=== PATIENT | female | born 2000 | race Caucasian/White ===

== ENCOUNTER 2023-12-11 17:48 | Emergency (ER) | payer OTHER, SELFPAY ==
[2023-12-11] VITALS (24 sets, daily range): BP systolic 109–128; BP diastolic 62–106; PULSE 74–146; RESP 15–26; TEMP 36.1–36.5; O2SAT 96–100; BMI 27.4
--- NOTE | 2023-12-11 18:09 | NURSING ---
NO OLD EKGS
--- NOTE | 2023-12-11 18:11 | EKG12_ITS ---
Test Reason : CHEST PAIN Blood Pressure : / mmHG Vent. Rate : 106 BPM Atrial Rate : 106 BPM P-R Int : 150 ms QRS Dur : 072 ms QT Int : 314 ms P-R-T Axes : 066 -21 052 degrees QTc Int : 417 ms Sinus tachycardia Possible Left atrial enlargement Borderline ECG Confirmed by Chilango Lyn ([id number]), photo editor CATRINA DEL ROSARIO ([id number]) on 12/12/2023 1:00:22 PM Referred By: Confirmed By:Chilango Lyn
[2023-12-11] MEDS: 0.9% Normal Saline (1000mL) 1,000 ML 999 ML IV (18:15)
--- NOTE | 2023-12-11 18:18 | NURSING ---
NO OLD EKGS
--- NOTE | 2023-12-11 18:20 | RAD_ITS ---
INDICATION: chest pain EXAMINATION/TECHNIQUE: X-RAY - XR Chest 1 View COMPARISON: None. FINDINGS: LINES/DEVICES: None. LUNGS: No consolidation, edema or effusion. No pneumothorax. MEDIASTINUM AND CARDIOVASCULAR STRUCTURES: Cardiac silhouette not enlarged. BONES AND SOFT TISSUES: Unremarkable. RAD/Chest 1 View (Portable) IMPRESSION: No radiographic evidence of acute cardiopulmonary disease. Electronically Signed: Amol Barboza MD at 18:48 EDT ,
[2023-12-11 18:23] LABS: Absolute Lymphocyte Count 2.73 X10^3/uL (0.83-4.51); Absolute Neutrophil Count 4.4 X10^3/uL (2.0-7.7); Basophil# 0.04 X10^3/uL; Basophil% 0.5 % (0-1); Eosinophil# 0.47 X10^3/uL; Eosinophils% 5.7 % (0-5); Hematocrit 43.9 % (37-47); Hemoglobin 14.5 g/dL (12.0-15.0); Lymphocyte # 2.73 X10^3/ul (0.83-4.51); Lymphocyte % 32.9 % (19-41); Mean Corpuscular Hgb 27.2 pg (27.0-32.0); Mean Corpuscular Volume 82.4 fL (81-99); Mean Platelet Vol. 9.4 fl (6.2-12.0); Monocyte# 0.67 X10^3/uL; Monocyte% 8.1 % (0-10); NRBC Flagged by Analyzer 0 % (0-5); Neutrophil # 4.35 X10^3/uL (2.7-7.7); Neutrophil % 52.3 % (47-70); Platelet Count 308 K/mm3 (150-450); RBC Distribution Width CV 12.2 % (11.6-14.6); Red Blood Count 5.33 M/mm3 (4.2-5.4); White Blood Count 8.3 K/mm3 (4.4-11.0)
[2023-12-11 18:37] LABS: International Normalized Ratio 1.1; Prothrombin Time (Protime)PT. 14.1 SECONDS (11.7-14.9)
[2023-12-11 18:42] LABS: Anion Gap 7 (5-15); BUN 10 mg/dL (7-18); BUN/Creat Ratio 13.3 RATIO (10-20); Calcium,Total 9.3 mg/dL (8.5-10.1); Chloride 107 mmol/L (98-107); Creatinine, Serum 0.75 mg/dL (0.55-1.02); EST Glomerular Filtration Rate 102 mL/min (>60); Est Glom Filt Rate - Afr Amer 124 mL/min (>60); Estimated Creatinine Clearance 124.42 ml/min; Glucose 104 mg/dL (74-106); Potassium 3.7 mmol/L (3.5-5.1); Sodium Level 139 mmol/L (136-145); Troponin-I HS < 3 pg/mL (3.0-54.0)
[2023-12-11 18:50] LABS: D-Dimer Quantitative (DVT/PE) 0.47 FEU/ug/m (0.27-0.49)
--- NOTE | 2023-12-11 19:03 | CT_ITS ---
STUDY: CTA CHEST REASON FOR EXAM: Female, 23 years old. chest pain RADIATION DOSAGE (If Supplied By Facility): CTDIvol = ( 10.25 ) mGy, DLP = ( 368.02 ) mGycm TECHNIQUE: The examination was performed with the intravenous administration of IV 100mL Isovue-370. Post-processing of the angiographic images was performed, with multiplanar reformation and 3D reconstruction. Individualized dose optimization techniques were used for this CT. COMPARISON: December 11, 2023 chest radiograph. FINDINGS: Unremarkable thyroid. Normal enhancement of the bilateral pulmonary arteries. There is no demonstrated pulmonary embolism. No main pulmonary arterial enlargement. No aortic dissection or aneurysmal dilatation. Normal heart and pericardium. No densely calcified coronary atherosclerosis. No mediastinal or hilar adenopathy. Unremarkable esophagus Mild bilateral peribronchial thickening. No endobronchial lesion. No airspace consolidation, effusion, pneumothorax.. Normal osseous structures. Normal visualized upper abdomen. CT/CTA Chest W/WO Contrast IMPRESSION: No pulmonary embolism or evidence of acute airspace disease. Mild bilateral peribronchial thickening as can be seen with bronchitis/bronchiolitis Electronically Signed: Amol Barboza MD at 20:04 EDT ,
--- NOTE | 2023-12-11 19:04 | ED.VIS.CHEST ---
HPI History of Present Illness Chief Complaint: Palpitations Narrative Narrative: 43-year-old female presenting with chest pain, lightheadedness, shortness of breath. This started abruptly when she got out of her truck today. Patient is an EMT. She states they put her on the monitor and her heart rate was about 150 and she states that her blood pressure dropped when she stood got better when she sat. She states he had an instance of this in the past where they thought she might have a PE but she did not. She does not take any medications except for Depo-Provera. Patient currently feels better sitting in the bed. We stood her up and her heart rate went up to 147 and she started to feel lightheaded and short of breath so we sat her back down. [facility] Medical History PCOS (polycystic ovarian syndrome) Home Medications ?Medication ?Instructions ?Recorded ?Last Taken ?Type medroxyprogesterone 150 mg/mL 300 mg IM .3 months 12/11/23 Unknown History intramuscular suspension (Depo-Provera) Allergy/AdvReac Type Severity Reaction Status Date / Time No Known Allergies Allergy Verified 12/11/23 18:19 Surgical History H/O wisdom tooth extraction Social History household members: significant other and children Smoking Status: Current every day smoker tobacco type: e-cigarettes ROS ROS ED Constitutional Constitutional ED: Denies chills, fever(s) or sweats Eyes Eyes: Denies blurry vision or change in vision ENT ENT ED: Denies ear pain or sore throat Cardiovascular Cardiovascular: Reports chest pain, palpitations, racing heartbeat and other Details: Lightheadedness Respiratory/Chest Respiratory/Chest: Reports dyspnea; Denies cough or sputum Gastrointestinal Gastrointestinal: Denies abdominal pain, constipation, diarrhea, nausea or vomiting Genitourinary Genitourinary ED: Denies dysuria, hematuria or urinary frequency Musculoskeletal Musculoskeletal: Denies arthralgias, myalgias or neck pain Integumentary Denies abscess, Abrasions or rash Neurologic Neurologic: Denies headache(s), paresthesias or weakness Psychiatric Psychiatric: Denies anxiety, depression, suicidal ideation or suicidal thoughts Endocrine Endocrinology: Denies polydipsia or polyuria EXAM Physical Exam Const Vital Signs: 12/11/23 17:50 12/11/23 18:03 12/11/23 18:05 Temperature 96.9 F L Temperature Source Temporal Pulse Rate 146 H 110 H 101 H Pulse Rate [Lying] Pulse Rate [Sitting (for 1 minute prior to obtaining)] Pulse Rate [Standing (for 1 minute prior to obtaining)] Respiratory Rate 18 25 H 26 H Blood Pressure 125/84 H 124/71 H Blood Pressure [Lying] Blood Pressure [Sitting (for 1 minute prior to obtaining)] Blood Pressure [Standing (for 1 minute prior to obtaining)] Blood Pressure Mean 97 87 Blood Pressure Mean [Lying] Blood Pressure Mean [Sitting (for 1 minute prior to obtaining)] Blood Pressure Mean [Standing (for 1 minute prior to obtaining)] Pulse Ox 100 98 97 Oxygen Delivery Method Room Air 12/11/23 18:10 12/11/23 18:11 12/11/23 18:15 Temperature Temperature Source Pulse Rate 104 H 102 H Pulse Rate [Lying] Pulse Rate [Sitting (for 1 minute prior to obtaining)] Pulse Rate [Standing (for 1 minute prior to obtaining)] Respiratory Rate 25 H 15 Blood Pressure 121/106 H Blood Pressure [Lying] Blood Pressure [Sitting (for 1 minute prior to obtaining)] Blood Pressure [Standing (for 1 minute prior to obtaining)] Blood Pressure Mean 113 Blood Pressure Mean [Lying] Blood Pressure Mean [Sitting (for 1 minute prior to obtaining)] Blood Pressure Mean [Standing (for 1 minute prior to obtaining)] Pulse Ox 96 99 Oxygen Delivery Method Room Air 12/11/23 18:16 12/11/23 18:20 12/11/23 18:25 Temperature Temperature Source Pulse Rate 91 94 102 H Pulse Rate [Lying] Pulse Rate [Sitting (for 1 minute prior to obtaining)] Pulse Rate [Standing (for 1 minute prior to obtaining)] Respiratory Rate 22 H 24 H 16 Blood Pressure 112/64 123/73 H 112/68 Blood Pressure [Lying] Blood Pressure [Sitting (for 1 minute prior to obtaining)] Blood Pressure [Standing (for 1 minute prior to obtaining)] Blood Pressure Mean 78 88 82 Blood Pressure Mean [Lying] Blood Pressure Mean [Sitting (for 1 minute prior to obtaining)] Blood Pressure Mean [Standing (for 1 minute prior to obtaining)] Pulse Ox 99 97 Oxygen Delivery Method Room Air 12/11/23 18:30 12/11/23 18:31 12/11/23 18:35 Temperature Temperature Source Pulse Rate 90 91 89 Pulse Rate [Lying] Pulse Rate [Sitting (for 1 minute prior to obtaining)] Pulse Rate [Standing (for 1 minute prior to obtaining)] Respiratory Rate 20 H 18 20 H Blood Pressure 109/67 111/70 Blood Pressure [Lying] Blood Pressure [Sitting (for 1 minute prior to obtaining)] Blood Pressure [Standing (for 1 minute prior to obtaining)] Blood Pressure Mean 79 82 Blood Pressure Mean [Lying] Blood Pressure Mean [Sitting (for 1 minute prior to obtaining)] Blood Pressure Mean [Standing (for 1 minute prior to obtaining)] Pulse Ox 96 97 Oxygen Delivery Method 12/11/23 18:40 12/11/23 18:45 12/11/23 18:46 Temperature Temperature Source Pulse Rate 84 87 90 Pulse Rate [Lying] Pulse Rate [Sitting (for 1 minute prior to obtaining)] Pulse Rate [Standing (for 1 minute prior to obtaining)] Respiratory Rate 15 17 18 Blood Pressure 116/81 H 113/68 Blood Pressure [Lying] Blood Pressure [Sitting (for 1 minute prior to obtaining)] Blood Pressure [Standing (for 1 minute prior to obtaining)] Blood Pressure Mean 90 81 Blood Pressure Mean [Lying] Blood Pressure Mean [Sitting (for 1 minute prior to obtaining)] Blood Pressure Mean [Standing (for 1 minute prior to obtaining)] Pulse Ox Oxygen Delivery Method 12/11/23 18:50 12/11/23 18:55 12/11/23 19:00 Temperature Temperature Source Pulse Rate 87 83 95 Pulse Rate [Lying] Pulse Rate [Sitting (for 1 minute prior to obtaining)] Pulse Rate [Standing (for 1 minute prior to obtaining)] Respiratory Rate 21 H 22 H 18 Blood Pressure 114/67 110/62 128/91 H Blood Pressure [Lying] Blood Pressure [Sitting (for 1 minute prior to obtaining)] Blood Pressure [Standing (for 1 minute prior to obtaining)] Blood Pressure Mean 82 77 100 Blood Pressure Mean [Lying] Blood Pressure Mean [Sitting (for 1 minute prior to obtaining)] Blood Pressure Mean [Standing (for 1 minute prior to obtaining)] Pulse Ox Oxygen Delivery Method Room Air Room Air 12/11/23 19:09 12/11/23 20:00 12/11/23 20:00 Temperature Temperature Source Pulse Rate 79 77 Pulse Rate [Lying] 88 Pulse Rate [Sitting (for 1 minute prior to obtaining)] 105 H Pulse Rate [Standing (for 1 minute prior to obtaining)] 95 Respiratory Rate 21 H 18 Blood Pressure 119/67 109/62 Blood Pressure [Lying] 111/64 Blood Pressure [Sitting (for 1 minute prior to obtaining)] 125/73 H Blood Pressure [Standing (for 1 minute prior to obtaining)] 121/69 H Blood Pressure Mean 84 75 Blood Pressure Mean [Lying] 79 Blood Pressure Mean [Sitting (for 1 minute prior to obtaining)] 90 Blood Pressure Mean [Standing (for 1 minute prior to obtaining)] 86 Pulse Ox 98 98 Oxygen Delivery Method 12/11/23 21:00 12/11/23 22:00 12/11/23 23:00 Temperature Temperature Source Pulse Rate 79 87 74 Pulse Rate [Lying] Pulse Rate [Sitting (for 1 minute prior to obtaining)] Pulse Rate [Standing (for 1 minute prior to obtaining)] Respiratory Rate 22 H 20 H 19 H Blood Pressure 119/67 115/66 Blood Pressure [Lying] Blood Pressure [Sitting (for 1 minute prior to obtaining)] Blood Pressure [Standing (for 1 minute prior to obtaining)] Blood Pressure Mean 81 82 Blood Pressure Mean [Lying] Blood Pressure Mean [Sitting (for 1 minute prior to obtaining)] Blood Pressure Mean [Standing (for 1 minute prior to obtaining)] Pulse Ox 98 98 97 Oxygen Delivery Method 12/11/23 23:23 Temperature 97.7 F L Temperature Source Pulse Rate 80 Pulse Rate [Lying] Pulse Rate [Sitting (for 1 minute prior to obtaining)] Pulse Rate [Standing (for 1 minute prior to obtaining)] Respiratory Rate 22 H Blood Pressure 121/62 H Blood Pressure [Lying] Blood Pressure [Sitting (for 1 minute prior to obtaining)] Blood Pressure [Standing (for 1 minute prior to obtaining)] Blood Pressure Mean 81 Blood Pressure Mean [Lying] Blood Pressure Mean [Sitting (for 1 minute prior to obtaining)] Blood Pressure Mean [Standing (for 1 minute prior to obtaining)] Pulse Ox 97 Oxygen Delivery Method Positive well nourished General Appearance ED: NAD HEENT Reports moist mucous membranes normocephalic and atraumatic Eyes PERRL and EOMs intact bilaterally Resp normal respiratory effort and clear to auscultation bilaterally Auscultation: Negative for rales, rhonchi or wheezes Cardio regular rate and regular rhythm GI normal to inspection, nondistended, normoactive bowel sounds Neuro oriented x3 and CN's II-XII intact bilaterally Sensorium / Orientation: awake and alert Motor Exam: strength 5/5 throughout Psych mental status grossly normal Skin no rashes or lesions noted Heart Score History: Slightly/Non-Suspicious ECG: Normal Age: </= 45 years Risk Factors: No Risk Factors Troponin: </= Normal Limit Score: 0 MDM MDM MDM Narrative Medical decision making narrative: Patient presenting with chest pain, lightheadedness, shortness of breath differential includes ACS, PE, pericardial effusion, pneumonia, dehydration, anemia, electrolyte abnormalities. Patient states has had this in the past and they did not find a source for it. She is not on any medications. She is worn a monitor before. No history of PE but is on Depo-Provera. Patient does not have constant pain and it only happens when she is standing. This started abruptly today. CBC was obtained to assess white blood cell count, hemoglobin and platelets. BMP to assess renal function, electrolytes, glucose. High-sensitivity troponin and EKG to assess for ischemia/dysrhythmia. Chest x-ray rule pneumonia. EKG on my interpretation shows a sinus tachycardia at 106 bpm without sign of ischemic change. Chest x-ray on my survey shows no acute process. Radiologist services and agrees. CBC and BMP unremarkable. D-dimer negative at 0.47. High-sensitivity opponent less than 3. Again after standing the patient up she becomes very short of breath and tachycardic to about 147 and she is having trouble breathing. CTA of the chest showed peribronchial cuffing/thickening. No PE or dissection. Patient states she has not been ill recently. She does have shortness of breath but its only when she stands and she feels tachycardic. She has been on 2 L of fluids. Orthostatic vital signs were within normal limits however the patient states that after she did orthostatic vital signs she tried to stand up and became very lightheaded. Discussed the case with Dr. Lyn at 9:45 PM and he recommended checking a drug screen and test. Her test was negative however her drug screen came back positive for barbiturates which the patient is unsure of how that got in her system. I did try to get an EKG after she stood up however she was not symptomatic and felt better after the IV fluids and her heart rate was only minimally tachycardic so I repeated an EKG which was sinus tachycardia at 106/min without sign of ischemic change. Delta troponin was also less than 3. I did offer to admit her to the hospital but she really wants to try to get home so since she is not is symptomatic we decided we will put a Holter monitor on her. I let Dr. Lyn know that she will be coming in for follow-up. Impression: 1. Chest pain 2. Near syncope 3. Tachycardia 4. Shortness of breath 5. Abnormal urine drug screen Lab Data Attestation: I reviewed the patient's lab results. Labs: Laboratory Results - last 24 hr 12/11/23 12/11/23 12/11/23 17:59 21:40 21:57 WBC 8.3 RBC 5.33 Hgb 14.5 Hct 43.9 MCV 82.4 MCH 27.2 MCHC 33.0 RDW Std Deviation 37.0 RDW Coeff of Parvin 12.2 Plt Count 308 MPV 9.4 Immature Gran % (Auto) 0.500 Neut % (Auto) 52.3 Lymph % (Auto) 32.9 Potter % (Auto) 8.1 Eos % (Auto) 5.7 H Baso % (Auto) 0.5 Absolute Neuts (auto) 4.4 Absolute Lymphs (auto) 2.73 Nucleated RBC % 0 PT 14.1 INR 1.1 D-Dimer Quant (PE/DVT) 0.47 Sodium 139 Potassium 3.7 Chloride 107 Carbon Dioxide 25.0 Anion Gap 7 BUN 10 Creatinine 0.75 Estim Creat Clear Calc 124.42 Est GFR (MDRD) Af Amer 124 Est GFR (MDRD) Non-Af 102 BUN/Creatinine Ratio 13.3 Glucose 104 Calcium 9.3 Troponin I High Sens < 3 L Serum , Qual NEGATIVE Urine Opiates Screen NEGATIVE Urine Methadone Screen NEGATIVE Ur Barbiturates Screen POSITIVE H Ur Phencyclidine Scrn NEGATIVE Ur Amphetamines Screen NEGATIVE MDMA (Ecstasy) Screen NEGATIVE U Benzodiazepines Scrn NEGATIVE Urine Cocaine Screen NEGATIVE U Cannabinoids Screen NEGATIVE Ur Drug Screen Comment 12/11/23 22:25 WBC RBC Hgb Hct MCV MCH MCHC RDW Std Deviation RDW Coeff of Parvin Plt Count MPV Immature Gran % (Auto) Neut % (Auto) Lymph % (Auto) Potter % (Auto) Eos % (Auto) Baso % (Auto) Absolute Neuts (auto) Absolute Lymphs (auto) Nucleated RBC % PT INR D-Dimer Quant (PE/DVT) Sodium Potassium Chloride Carbon Dioxide Anion Gap BUN Creatinine Estim Creat Clear Calc Est GFR (MDRD) Af Amer Est GFR (MDRD) Non-Af BUN/Creatinine Ratio Glucose Calcium Troponin I High Sens < 3 L Serum , Qual Urine Opiates Screen Urine Methadone Screen Ur Barbiturates Screen Ur Phencyclidine Scrn Ur Amphetamines Screen MDMA (Ecstasy) Screen U Benzodiazepines Scrn Urine Cocaine Screen U Cannabinoids Screen Ur Drug Screen Comment Radiography Diagnostic Testing: Clinical Impression(s) from Imaging Studies Chest X-Ray 12/11/23 18:20 IMPRESSION: No radiographic evidence of acute cardiopulmonary disease. Electronically Signed: Amol Barboza MD at 18:48 EDT Reading Location ID and State: [facility] / [place] Tel , Service support , Chest CTA 12/11/23 19:03 IMPRESSION: No pulmonary embolism or evidence of acute airspace disease. Mild bilateral peribronchial thickening as can be seen with bronchitis/bronchiolitis Electronically Signed: Amol Barboza MD at 20:04 EDT Reading Location ID and State: [facility] / [place] Tel , Service support , Discharge Plan Triage Chief Complaint: Palpitations ED Provider: Ramesh Mullen Dx/Rx/DC Orders Instructions: ED Palpitations Prescriptions: No Action medroxyprogesterone [Depo-Provera] 150 mg/mL suspension 300 mg IM .3 months Stand Alone Forms: ED Work / School Excuse Primary Care Provider: Care Physician,No Primary Referrals: Chilango Lyn MD [Med Staff - Active Staff] - As soon as possible Care Physician,No Primary [Primary Care Provider] - Print Language: Lao Disposition Disposition: Home, Self Care Discharge Date/Time: 12/11/23 23:29
[2023-12-11 22:01] LABS: Internal QC Validated? YES +Cl - CLEAR BKGD; Pregnancy, Serum, hCG Quali. NEGATIVE Negative
[2023-12-11 22:16] LABS: Amphetamine Urine VISTA NEGATIVE (<1000 ng/mL); Barbiturate Urine VISTA POSITIVE (< 200 ng/mL); Benzodiazepine Urine VISTA NEGATIVE (< 200 ng/mL); Cocaine Urine VISTA NEGATIVE (< 300 ng/mL); Ecstacy Urine VISTA NEGATIVE (< 500 ng/mL); Methadone Urine VISTA NEGATIVE (< 300 ng/mL); PCP Urine VISTA NEGATIVE (< 25 ng/mL); THC Urine VISTA NEGATIVE (< 50 ng/mL); Vista UDS pH Range 6
--- NOTE | 2023-12-11 22:50 | EKG12_ITS ---
Test Reason : DYSRYTHMIA Blood Pressure : / mmHG Vent. Rate : 106 BPM Atrial Rate : 106 BPM P-R Int : 146 ms QRS Dur : 068 ms QT Int : 318 ms P-R-T Axes : 058 004 056 degrees QTc Int : 422 ms Sinus tachycardia Low voltage QRS Borderline ECG Confirmed by Chilango Lyn ([id number]), desk editor CATRINA DEL ROSARIO ([id number]) on 12/12/2023 1:05:06 PM Referred By: Ramesh Mullen Confirmed By:Chilango Lyn
[2023-12-11 22:56] LABS: Troponin-I HS < 3 pg/mL (3.0-54.0)
== END 2023-12-11 23:29 | disposition home or self-care (01) ==
PROVIDERS: Emergency Provider Student in an Organized Health Care Education/Training Program; Visit Provider Student in an Organized Health Care Education/Training Program
DX: R00.2 Palpitations (principal); R07.9 Chest pain, unspecified; R42 Dizziness and giddiness; R06.02 Shortness of breath; R55 Syncope and collapse; F17.290 Nicotine dependence, other tobacco product, uncomplicated; R00.0 Tachycardia, unspecified; R82.5 Elevated urine levels of drugs, medicaments and biological substances; E28.2 Polycystic ovarian syndrome; Z79.899 Other long term (current) drug therapy
CPT/HCPCS: 71045; 71275; 80048; 80307; 84484; 84703; 85025; 85379; 85610; 93005; 96360; 99285; J7030; Q9967; A4216

== ENCOUNTER → 2023-12-11 | Outpatient (CLI) | payer OTHER, SELFPAY | END | disposition home or self-care (01) | LOC: CVS 23:27 | PROVIDERS: Referring Provider Student in an Organized Health Care Education/Training Program; Visit Provider Student in an Organized Health Care Education/Training Program | DX: R00.2 Palpitations (principal) | CPT/HCPCS: 93225; 93226 ==

== ENCOUNTER → 2024-04-01 | Outpatient (CLI) | payer OTHER, BC, SELFPAY ==
[2024-04-01 17:30] LABS: Absolute Lymphocyte Count 2.59 X10^3/uL (0.83-4.51); Absolute Neutrophil Count 3.8 X10^3/uL (2.0-7.7); Basophil# 0.04 X10^3/uL; Basophil% 0.5 % (0-1); Eosinophil# 0.58 X10^3/uL; Eosinophils% 7.7 % (0-5); Hematocrit 40.7 % (37-47); Hemoglobin 13.4 g/dL (12.0-15.0); Lymphocyte # 2.59 X10^3/ul (0.83-4.51); Lymphocyte % 34.6 % (19-41); Mean Corp Hgb Conc 32.9 g/dL (32-36); Mean Corpuscular Hgb 27.1 pg (27.0-32.0); Mean Corpuscular Volume 82.2 fL (81-99); Mean Platelet Vol. 10.1 fl (6.2-12.0); Monocyte# 0.45 X10^3/uL; NRBC Flagged by Analyzer 0 % (0-5); Neutrophil % 50.8 % (47-70); Platelet Count 300 K/mm3 (150-450); RBC Distribution Width CV 12.4 % (11.6-14.6); Red Blood Count 4.95 M/mm3 (4.2-5.4); White Blood Count 7.5 K/mm3 (4.4-11.0)
[2024-04-01 18:11] LABS: Vitamin B12 835 pg/mL (211-911); Vitamin D,25 Hydroxy 23.7 ng/mL
[2024-04-01 18:31] LABS: ALB/GLOB Ratio 1.2 RATIO (0.9-2.4); AST(SGOT) 10 U/L (15-37); Alanine Aminotransfer ALT/SGPT 19 U/L (13-56); Alkaline Phosphatase 59 U/L (45-117); Anion Gap 7 (5-15); BUN 9 mg/dL (7-18); BUN/Creat Ratio 11.5 RATIO (10-20); Calcium,Total 9.2 mg/dL (8.5-10.1); Chloride 110 mmol/L (98-107); Creatinine, Serum 0.78 mg/dL (0.55-1.02); EST Glomerular Filtration Rate 98 mL/min (>60); Est Glom Filt Rate - Afr Amer 118 mL/min (>60); Globulin 3.3 g/dL (2.2-4.2); Glucose 134 mg/dL (74-106); Potassium 3.6 mmol/L (3.5-5.1); Protein, Total 7.3 g/dL (6.4-8.2); Sodium Level 140 mmol/L (136-145); T4 Free Direct 1.05 ng/dL (0.76-1.46); Thyroid Stim Hormone (TSH) 0.889 uIU/mL (0.358-3.740)
[2024-04-03 10:09] LABS: Hemoglobin A1c 5.1 % (3.8-5.6)
== END | disposition home or self-care (01) ==
LOC: MFPLAB 15:09
PROVIDERS: PCP Family Medicine; Visit Provider Family Medicine
DX: R53.83 Other fatigue (principal); R73.09 Other abnormal glucose
CPT/HCPCS: 36415; 80053; 82306; 82607; 83036; 84439; 84443; 85025

== ENCOUNTER 2024-05-16 06:04 | Emergency (ER) | payer BC, SELFPAY ==
[2024-05-16 06:06] VITALS: BP 113/66; PULSE 75; RESP 11; TEMP 36.3; O2SAT 98; BMI 30.4
--- NOTE | 2024-05-16 06:18 | EDS_ITS ---
HPI History of Present Illness Chief Complaint: Chest Pain Informant: patient Onset/Context/Timing Onset: Today (Approximately 30 minutes prior to arrival) Activity at onset: sudden Timing: Continuous Quality: Positive for Sharp and Tightness Location: Right Chest Worsened By: Nothing Relieved By: Nothing Associated Symptoms: Positive for Cough; Negative for Nausea, Vomiting, Diaphoresis, Dyspnea, Fever, Lightheadedness, Acid Reflux or Palpitations Narrative Narrative: Patient presents with chest pain that began today approximately 30 minutes prior to arrival. Patient states that she was riding in the car when this began. Patient states it is mainly over the right side of her chest. Patient describes it as sharp and tight. Patient states it radiates up into her neck. Patient states nothing makes it better nothing makes it worse. Patient does admit to a cough. Patient denies any shortness of breath. Patient denies any nausea or vomiting. Patient states she has a history of POTS. CVD Risk Factors: Positive for Smoking; Negative for Hypertension, Diabetes, Hypercholesterolemia or Family History 1' </=55 PE Risk Factors: Negative for Recent Travel/Surgery, Recent Immobilization, Prior DVT or PE, Cancer or OCP + Smoking + >/=35 PFSH PFSH Medical History Pneumonia POTS (postural orthostatic tachycardia syndrome) Asthma PCOS (polycystic ovarian syndrome) Home Medications ?Medication ?Instructions ?Recorded ?Last Taken ?Type medroxyprogesterone 150 mg/mL 300 mg IM .3 months 12/11/23 Unknown History intramuscular suspension (Depo-Provera) metoprolol tartrate 25 mg tablet 25 mg PO BID #180 tabs 03/25/24 Unknown Rx amoxicillin 875 mg-potassium 1 tab PO BID 04/18/24 Unknown History clavulanate 125 mg tablet ipratropium bromide 17 1 puff inhalation Q6H 04/18/24 Unknown History mcg/actuation HFA aerosol inhaler (Atrovent HFA) Allergy/AdvReac Type Severity Reaction Status Date / Time No Known Allergies Allergy Verified 05/16/24 06:05 Family History Sister Thyroid disorder Cancer Mother Cancer Thyroid disorder Father Diabetes Peripheral vascular disease Surgical History H/O wisdom tooth extraction Social History household members: significant other and children Smoking Status: Current every day smoker tobacco type: e-cigarettes alcohol intake: current alcohol intake frequency: holidays/special occasions only substance use type: does not use caffeine: Yes (on occasion per pt) ROS ROS ED Constitutional Constitutional ED: Denies chills or fever(s) Eyes Eyes: Denies blurry vision or change in vision ENT ENT ED: Denies rhinorrhea or sore throat Cardiovascular Cardiovascular: Reports chest pain; Denies palpitations Respiratory/Chest Respiratory/Chest: Reports cough; Denies dyspnea Gastrointestinal Gastrointestinal: Denies nausea or vomiting Genitourinary Genitourinary ED: Denies dysuria or hematuria Musculoskeletal Musculoskeletal: Reports back pain; Denies neck pain Integumentary Denies abscess or rash Neurologic Neurologic: Denies headache(s) or weakness Allergic/Immunologic Allergic/Immunologic ED: Denies mouth swelling or urticaria EXAM Physical Exam Const Vital Signs: 05/16/24 06:06 05/16/24 06:08 05/16/24 06:28 Temperature 97.3 F L Temperature Source Oral Pulse Rate 75 Respiratory Rate 11 L Respiratory Effort Normal Blood Pressure 113/66 Blood Pressure Mean 81 Pulse Ox 98 97 Oxygen Delivery Method Room Air Room Air 05/16/24 07:14 Temperature Temperature Source Pulse Rate 75 Respiratory Rate 16 Respiratory Effort Blood Pressure 113/61 Blood Pressure Mean 78 Pulse Ox 98 Oxygen Delivery Method Room Air Positive well nourished and well developed General Appearance ED: well developed and NAD HEENT Reports moist mucous membranes Neck supple and no JVD Resp normal respiratory effort and clear to auscultation bilaterally Cardio regular rate and regular rhythm GI soft to palpation, non-tender and non-distended Extremity normal to inspection General Extremety ED: Negative for edema or tenderness General Extremity: Negative for edema Neuro oriented x3, CN's II-XII intact bilaterally and no sensory deficits noted Sensorium / Orientation: awake and alert Motor Exam: strength 5/5 throughout Psych mental status grossly normal Heart Score History: Slightly/Non-Suspicious ECG: Normal Age: </= 45 years Risk Factors: 1 or 2 Risk Factors Troponin: </= Normal Limit Score: 1 MDM MDM MDM Narrative Medical decision making narrative: Differential diagnosis includes cardiac dysrhythmia, cardiac ischemia, electrolyte abnormality, pneumonia, gastroesophageal reflux disease, and anxiety. EKG will be obtained to assess for cardiac dysrhythmia and cardiac ischemia. Chest x-ray will be obtained to assess for pneumonia and pneumothorax. CBC will be obtained to assess for leukocytosis and anemia. Basic metabolic profile will be obtained to assess for electrolyte abnormality and renal function. High-sensitivity troponin will be obtained to assess for cardiac ischemia. 2-hour repeat high-sensitivity troponin will be obtained to assess for ongoing cardiac ischemia. Lab Data Attestation: I reviewed the patient's lab results. Lab results narrative: CBC was reviewed and was within normal limits. Basic metabolic profile was reviewed and was within normal limits initial high-sensitivity troponin was reviewed and was less than 3. Labs: Laboratory Results - last 24 hr 05/16/24 06:26 WBC 6.4 RBC 5.16 Hgb 14.2 Hct 42.7 MCV 82.8 MCH 27.5 MCHC 33.3 RDW Std Deviation 36.8 RDW Coeff of Parvin 12.1 Plt Count 279 MPV 9.2 Immature Gran % (Auto) 0.500 Neut % (Auto) 44.5 L Lymph % (Auto) 38.8 [place] % (Auto) 8.0 Eos % (Auto) 7.4 H Baso % (Auto) 0.8 Absolute Neuts (auto) 2.9 Absolute Lymphs (auto) 2.48 Nucleated RBC % 0 Sodium 139 Potassium 3.7 Chloride 109 H Carbon Dioxide 25.0 Anion Gap 5 BUN 13 Creatinine 0.67 Estim Creat Clear Calc 145.09 Est GFR (MDRD) Af Amer 141 Est GFR (MDRD) Non-Af 116 BUN/Creatinine Ratio 19.3 Glucose 104 Calcium 8.8 Troponin I High Sens < 3 L Radiography Chest X-Ray - ED: 2 View, Read by ED Physician, Read by Radiologist and No Acute Disease Diagnostic Testing: Clinical Impression(s) from Imaging Studies Chest X-Ray 05/16/24 06:35 IMPRESSION: No evidence of active intrathoracic disease. Electronically Signed: Inessa Calloway MD at 7:18 EDT , PA and lateral chest x-ray was obtained. There are 2 views. On my independent interpretation, lung portillo are clear. There is normal cardiac silhouette. Bony thorax is normal. There is no acute process noted. Radiologist also interpreted the x-ray and agrees. EKG Initial EKG: Attestation: I personally reviewed and interpreted this EKG as follows: Interpretation: Sinus Rhythm (76) and No Acute Injury Pattern Comments: EKG was obtained. On my independent interpretation, it showed a normal sinus rhythm with a rate of 76. AK interval, QRS interval, and QTc intervals were all normal. [place] was normal. There are no acute ST or T wave changes. Prior EKG tracings: available for review Prior: Unchanged (03/07/2024) Treatment and Re-Evaluation :: Patient was given aspirin here. Patient has a HEART score of 1. Patient was advised that this is low risk for acute cardiac event. Care of the patient will be turned over to the oncoming physician pending repeat troponin. Discharge Plan Triage Chief Complaint: Chest Pain ED Provider: Mark Linton Dx/Rx/DC Orders Clinical Impression: Chest pain of uncertain etiology, POTS (postural orthostatic tachycardia syndrome) Instructions: ED Chest Pain, Uncertain Cause Prescriptions: No Action amoxicillin-pot clavulanate 875-125 mg tablet 1 tab PO BID Atrovent HFA 17 mcg/actuation HFA aerosol inhaler 1 puff inhalation Q6H medroxyprogesterone [Depo-Provera] 150 mg/mL suspension 300 mg IM .3 months metoprolol tartrate 25 mg tablet 25 mg PO BID Qty: 180 3RF Primary Care Provider: Ernesto Randhawa Referrals: Ernesto Randhawa MD [Primary Care Provider] - 5-7 Days Print Language: Barbadian Disposition Disposition: Home, Self Care
--- NOTE | 2024-05-16 06:26 | EKG12_ITS ---
Test Reason : CP Blood Pressure : / mmHG Vent. Rate : 076 BPM Atrial Rate : 076 BPM P-R Int : 170 ms QRS Dur : 068 ms QT Int : 362 ms P-R-T Axes : 060 003 044 degrees QTc Int : 407 ms Normal sinus rhythm Normal ECG Confirmed by MISTI MCFARLAND MD ([id number]), manager editorial ALEM HENNESSY ([id number]) on 05/19/2024 9:21:12 AM Referred By: ES Confirmed By:MISTI MCFARLAND MD
[2024-05-16 06:28] VITALS: O2SAT 97
[2024-05-16] MEDS: Aspirin 81 MG TAB.CHEW 324 MG PO (06:30)
--- NOTE | 2024-05-16 06:35 | RAD_ITS ---
INDICATION: chest pain EXAMINATION/TECHNIQUE: X-RAY - XR Chest 2 Views COMPARISON: Prior study dated: 12/11/2023 FINDINGS: LINES/DEVICES: None. LUNGS: No consolidation. No pneumothorax. MEDIASTINUM: Unremarkable. CARDIAC SILHOUETTE: Not enlarged. BONES AND SOFT TISSUES: No acute abnormalities. RAD/Chest PA and Lateral IMPRESSION: No evidence of active intrathoracic disease. Electronically Signed: Inessa Calloway MD at 7:18 EDT ,
--- OUTSIDE RECORDS SUMMARY | 2024-05-16 06:42 | XMS RPT_ITS | CCD ---
Author Organization [facility] Care Team Providers Care Hat Block Bench Hand Name Role Phone Joby Loya Primary Care Provider ANTONIETTA SIDDIQI Admitting Unavailable ANTONIETTA SIDDIQI Attending Unavailable ANTONIETTA SIDDIQI Referring Unavailable NONE, NONE Primary Care Unavailable Ernst Can [phone] Consulting Unavailable Isreal Dorsey [phone] Consulting Unav ailable ANTONIETTA SIDDIQI Consulting Unavailable NONE, NONE Consulting Unavailable Joby Loya DO Primary Care Provider Vincenzo ENGINEER AND GEOLOGIST, A Isatu Primary Care Provider VINCENZO, Ken ISATU~[id number] Primary Care Roshni Loya ENGINEER AND GEOLOGIST, A Isatu Primary Care Provider Vincenzo ENGINEER AND GEOLOGIST, A Isatu Primary Care Provider JOBY LOYA Primary Care Unavailable ROBBIE DUNAWAY Attending Unavailable JOBY LOYA Unavailable Unavailable Muna Patten Unavailable Unavailable BRIGHT BRIGHT, A A ISATU~[id number] Primary Care Unavailable DANIELA VARNER Attending Unavailable BRIGHT BRIGHT, A A ISATU~[id number] Primary Care Unavailable BRIGHT BRIGHT, A A ISATU~[id number] Primary Care Unavailable BRIGHT BRIGHT, A A ISATU~[id number] Primary Care Unavailable BRIGHT BRIGHT, A A ISATU~[id number] Primary Care Unavailable Ms. Muna Patten Attending Joby Davenport Primary Care Unavailable Joby Loya Primary Care Unavailable Ms. Scarlett Siddiqi Attending Cindyvaambika lable Unavailable Primary Care Provider Unavailabl e No, Physician Primary Care Provider Unavailabl e NO, PHYSICIAN Primary Care Unavailable TRACY ALLEN Attending Unav ailable TRACY ALLEN Admitting Unav ailable BARBER, PHYSICIAN Primary Care Unavailable TRACY ALLEN Attending Unav ailable LEA SURESH Attending Unavailable NO, PHYSICIAN Primary Care Unavailable TEDDY LYN Primary Care Unavailable NAOH BENNETT MD Attending Unavailable Medications Current Medications Medication Drug Class(es) Dates Sig (Normalized) Sig (Original) [id number] 200 actuat albuterol 0.09 mg/actuat metered dose inhaler (10 sources) beta2-Adrenergic Agonist Start: 11-29-2022 End: 12-29-2022 take 2 puff(s) by inhalation every four hours for wheezing albuterol HFA (PROAIR HFA ; PROVENTIL HFA ; VENTOLIN HFA) 90 mcg/actuation inhaler Indications: Cough in adult Inhale 2 puffs every 4 (four) hours if needed for shortness of breath or wheezing. 6.7 g 0 11/29/2022 12/29/2022 Active Start: 12-23-2018 End: 01-22-2019 take 2 puff(s) by inhalation every six hours as needed for wheezing albuterol (PROVENTIL HFA) 90 mcg/actuation inhaler Inhale 2 (two) puffs every 6 (six) hours as needed for wheezing . 1 Inhaler 0 12/23/2018 01/22/2019 Active Start: 12-23-2018 End: 12-28-2023 take 2.5 mg by inhalation every six hours as needed for wheezing albuterol (PROVENTIL) 2.5 mg /3 mL (0.083 %) nebulizer solution Take 3 mL (2.5 mg total) by nebulization every 6 (six) hours as needed for wheezing . 75 mL 0 12/23/2018 12/28/2023 Discontinued Start: 12-23-2018 End: 12-28-2023 take 2 puff(s) by inhalation every six hours as needed for wheezing albuterol (PROVENTIL HFA) 90 mcg/actuation inhaler Inhale 2 (two) puffs every 6 (six) hours as needed for wheezing . 1 Inhaler 0 12/23/2018 12/28/2023 Discontinued End: 12-28-2023 albuterol 90 mcg/actuation i nhaler Inhale 2 (two) puffs . 0 12/28/2023 Discontinued albuterol 90 mcg /actuation inhaler Inhale 2 puffs . 0 Active azithromycin 250 mg oral tablet (1 source) Macrolide Antimicrobial Start: 11-29-2022 azithromycin (Zithromax Z-Juan) 250 mg tablet Indications: Bronchitis Take 2 tablets the first day, then 1 tablet daily for 4 days. 6 tablet 0 11/29/2022 Active benzonatate 200 mg oral capsule (1 source) Non-narcotic Antitussive Start: 12-23-2018 End: 12-30-2018 take 1 capsule by mouth three times daily as needed for cough benzonatate (TESSALON) 200 MG capsule Take 1 (one) capsule (200 mg total) by mouth 3 (three) times a day as needed for cough . 15 capsule 0 12/23/2018 12/30/2018 Active brompheniramine maleate 0.4 mg/ml / dextromethorphan hydrobromide 2 mg/ml / pseudoephedrine hydrochloride 6 mg/ml oral solution (1 source) alpha-Adrenergic Agonist, Uncompetitive K-dnkakj-N-aspartat e Receptor Antagonist, Sigma-1 Agonist Start: 11-29-2022 End: 12-09-2022 take 10 mL by mouth four times daily brompheniramine-p seudoephedrine-DM 2-30-10 mg/5 mL syrup Indications: Cough in adult Take 10 mL by mouth 4 (four) times a day if needed for allergies for up to 10 days. 118 mL 0 11/29/2022 12/09/2022 Active doxycycline hyclate 100 mg oral tablet (1 source) Tetracycline-class Drug Start: 12-23-2018 End: 12-30-2018 take 1 tablet by mouth twice daily doxycycline hyclate (VIBRA-TABS) 100 MG tablet Take 1 (one) tablet (100 mg total) by mouth 2 (two) times a day for 7 days . 14 tablet 0 12/23/2018 12/30/2018 Active Ethinyl Estradiol / Norethindrone (18 sources) Estrogen Start: 09-11-2022 take 1 tablet by mouth once daily norethindrone-eth inyl estradiol (Junel 08/11, ,) 1-20 mg-mcg per tablet 08/11 (21) 1 mg-20 mcg tablet Take 1 tablet every day by oral route. 21 tablet 2 09/11/2022 Active Start: 07-03-2022 take 1 tablet by jessa th once daily norethindrone-ethinyl estradiol (08/11, ,) 1-20 mg-mcg per tablet 08/11 (21) 1 mg-20 mcg tablet Take 1 tablet every day by oral route. 21 tablet 2 07/03/2022 Active Start: 04-24-2022 End: 07-03-2022 take 1 tablet by mouth once daily norethindrone-ethinyl estradiol (,) 1-20 mg-mcg per tablet 08/11 () 1 mg-20 mcg tablet Take 1 tablet every day by oral route. 21 tablet 2 04/24/2022 07/03/2022 Discontinued (Reorder) Start: 04-24-2022 take 1 tablet by jessa th once daily norethindrone-ethinyl estradiol (08/11, ,) 1-20 mg-mcg per tablet 08/11 () 1 mg-20 mcg tablet Take 1 tablet every day by oral route. 21 tablet 2 04/24/2022 Active Start: 02-20-2022 End: 04-24-2022 take 1 tablet by mouth once daily norethindrone-ethinyl estradiol (08/11, ,) 1-20 mg-mcg per tablet 08/11 (21) 1 mg-20 mcg tablet Take 1 tablet every day by oral route. 21 tablet 2 02/20/2022 04/24/2022 Discontinued (Reorder) Start: 02-20-2022 take 1 tablet by jessa th once daily norethindrone-ethinyl estradiol (08/11, ,) 1-20 mg-mcg per tablet 08/11 (21) 1 mg-20 mcg tablet Take 1 tablet every day by oral route. 21 tablet 2 02/20/2022 Active Start: 12-26-2021 End: 02-20-2022 take 1 tablet by mouth once daily norethindrone-ethinyl estradiol (08/11, ,) 1-20 mg-mcg per tablet 08/11 (21) 1 mg-20 mcg tablet Take 1 tablet every day by oral route. 21 tablet 2 12/26/2021 02/20/2022 Discontinued (Reorder) Start: 12-26-2021 take 1 tablet by jessa th once daily norethindrone-ethinyl estradiol (08/11, ,) 1-20 mg-mcg per tablet 08/11 (21) 1 mg-20 mcg tablet Take 1 tablet every day by oral route. 21 tablet 2 12/26/2021 Active Start: 08-18-2021 End: 12-26-2021 take 1 tablet by mouth once daily norethindrone-ethinyl estradiol (08/11, ,) 1-20 mg-mcg per tablet 08/11 (21) 1 mg-20 mcg tablet Take 1 tablet every day by oral route. 21 tablet 2 08/18/2021 12/26/2021 Discontinued (Reorder) Start: 08-18-2021 take 1 tablet by jessa th once daily norethindrone-ethinyl estradiol (08/11, ,) 1-20 mg-mcg per tablet 08/11 (21) 1 mg-20 mcg tablet Take 1 tablet every day by oral route. 21 tablet 2 08/18/2021 Active End: 08-18-2021 take 1 tablet by mouth once daily, then take 0.05 tablet by mouth once norethindrone-ethinyl estradiol (08/11, ,) 1-20 mg-mcg per tablet 08/11 (21) 1 mg-20 mcg tablet Take 1 tablet every day by oral route. 0 08/18/2021 Discontinued (Reorder) levalbuterol 2.5 mg/ml inhalant solution (4 sources) beta2-Adrenergic Agonist Start: 12-23-2018 leval buterol (XOPENEX) nebulizer solution 1.25 mg Start: 12-23-2018 End: 12-28-2023 take 1.25 mg by inhalation every four hours as needed for wheezing levalbuterol (XOPENEX) 1.25 mg/3 mL nebulizer solution Take 3 mL (1.25 mg total) by nebulization every 4 (four) hours as needed for wheezing . 72 mL 0 12/23/2018 12/28/2023 Discontinued 1 ml medroxyPROGESTERone acetate 150 mg/ml injection (2 sources) Progestin Start: 10-22-2023 medroxyPROGESTERone (DEPO-PROVERA) 150 mg/mL injection Inject 1 mL (150 mg total) into the shoulder, thigh, or buttocks every 3 (three) months . 0 10/22/2023 Active metoprolol tartrate 25 mg oral tablet (4 sources) beta-Adrenergic Danielle Start: 12-21-2023 End: 03-27-2024 take 0.5 tablet by mouth twice daily metoprolol tartrate (LOPRESSOR) 25 MG tablet Take 0.5 (one-half) tablet (12.5 mg total) by mouth 2 (two) times a day . 30 tablet 2 12/28/2023 03/27/2024 Active naproxen 500 mg oral tablet (2 sources) Nonsteroidal Anti-inflammator y Drug Start: 11-24-2022 take 1 tablet by mouth twice daily at mealtime naproxen 500 mg oral tablet ; 1 tab(s) orally 2 times a day Quantity: 14 Refills: 0 Ordered: 24-Nov-2022 Scarlett Siddiqi Start: 24-Nov-2022 Generic Substitution Allowed Comments: Check with your doctor before becoming .May cause drowsiness or dizziness.Obtain medical advice before taking any non-prescription drugs as some may affect the action of this medication.Take with food or milk. Start: 04-07-2022 End: 04-14-2022 take 1 tablet by mouth twice daily at mealtime naproxen (NAPROSYN) 500 mg tablet Take 1 tablet (500 mg total) by mouth 2 (two) times a day with meals for 7 days. 14 each 0 04/07/2022 04/14/2022 Active Comment on above: Check with your doct or before becoming .May cause drowsiness or dizziness.Obtain medical advice before taking any non-prescription drugs as some may affect the action of this medication.Take with food or milk. predniSONE 50 mg oral tablet (2 sources) Start: 3 End: 3 take 1 tablet by mouth once daily predniSONE (DELTASONE) 50 mg tablet Indications: Cough in adult Take 1 tablet (50 mg total) by mouth 1 (one) time each day for 5 days. 5 tablet 0 11/29/2022 12/04/2022 Active Start: 12-23-2018 predniSONE (DE LTASONE) 10 mg tablet pack 4 tabs po x 4 days, 3 tabs po x 4 days, 2 tabs po x 4 days, 1 tab po x 4 days . 40 tablet 0 12/23/2018 Active Completed/Discontinued Medications Medication Drug Class(es) Dates Sig (Normalized) Sig (Original) dicyclomine hydrochloride 10 mg oral capsule (1 source) Anticholinergic Start: 11-19-19 End: 11-21-19 take 2 capsules by mouth three times daily dicyclomine 10 mg oral capsule ; 2 cap(s) orally 3 times a day Quantity: 18 Refills: 0 Ordered: 18-Nov-2022 Scarlett Siddiqi Start: 18-Nov-2022 End: 20-Nov-2022 Generic Substitution Allowed Comments: May cause drowsiness. Alcohol may intensify this effect. Use care when operating dangerous machinery. Comment on above: May cause drowsiness . Alcohol may intensify this effect. Use care when operating dangerous machinery. iopamidol (ISOVUE-370) 76 % injection 75 mL (1 source) Start: 12-24-19 End: 12-24-19 iopamidol (ISOVUE-370) 76 % injection 75 mL 1 ml ketorolac tromethamine 30 mg/ml injection (1 source) Nonsteroidal Anti-inflammatory Drug, Cyclooxygenase Inhibitor Start: 12-24-19 End: 12-24-19 19 ketorolac (TORADOL) injection 15 mg methylPREDNISolone 125 mg injection (1 source) Corticosteroid Start: 12-24-19 End: 12-24-19 methylPREDNISolone sod suc(PF) (SOLU-medrol) Injection 125 mg ondansetron 4 mg disintegrating oral tablet (2 sources) Serotonin-3 Receptor Antagonist Start: 11-17-19 23 End: 12-28-19 24 take 1 tablet by mouth every eight hours as needed ondansetron (ZOFRAN-ODT) 4 MG disintegrating tablet Dissolve 1 (one) tablet (4 mg total) on top of tongue every 8 (eight) hours as needed . 20 tablet 0 11/16/2022 12/28/2023 Discontinued 1000 ml sodium chloride 9 mg/ml injection (1 source) Start: 12-24-19 End: 12-24-19 sodium chloride 0.9% (NS) bolus 500 mL Problems Active Problems Problem Classification Problem Date Documented Date Episodic/Chronic Abdominal pain (5 sources) Unspecified abdominal pain; Translations: [Pelvic and perineal pain] Onset: 11-15-2022 Episodic Asthma (1 source) Acute exacerbation of asthma; Translations: [Asthma with acute exacerbation, unspecified asthma severity, unspecified whether persistent] Chronic Cardiac dysrhythmias (4 sources) Postural orthostatic tachycardia syndrome ; Translations: [POTS (postural orthostatic tachycardia syndrome)] Onset: 12-28-2023 12-28-2023 Chronic Cardiac dysrhythmias (4 sources) Palpitations; Translations: [Tachycardia, unspecified] Onset: 12-21-2023 Episodic Chronic obstructive pulmonary disease and bronchiectasis (2 sources) Bronchitis; Translations: [Bronchitis, not specified as acute or chronic] Onset: 11-29-2022 Episodic Contraceptive and procreative management (2 sources) Patient encounter status; Translations: [Encounter for other general counseling and advice on contraception] Episodic Menstrual disorders (1 source) Dysmenorrhea, unspecified; Translations: [Dysmenorrhea, unspecified] Onset: 11-24-2022 Chronic Nausea and vomiting (2 sources) Nausea; Translations: [Nausea] Onset: 11-18-2022 Episodic Nonmalignant breast conditions (2 sources) Lump in right breast; Translations: [Unspecified lump in the right breast, unspecified quadrant] Episodic Other circulatory disease (2 sources) Postural orthostatic tachycardia syndrome ; Translations: [Postural orthostatic tachycardia syndrome (POTS)] Onset: 12-28-2023 Episodic Other female genital disorders (1 source) Pain in female genitalia on intercourse; Translations: [Unspecified dyspareunia] Chronic Other female genital disorders (3 sources) Abnormal uterine and vaginal bleeding, unspecified; Translations: [Abnormal uterine and vaginal bleeding, unspecified] Onset: 11-24-2022 Chronic Other female genital disorders (4 sources) Abnormal uterine bleeding; Translations: [Abnormal uterine and vaginal bleeding, unspecified] Onset: 12-28-2023 12-28-2023 Chronic Other female genital disorders (1 source) Personal history of other diseases of the female genital tract; Translations: [Personal history of oth diseases of the female genital tract] Onset: 11-24-2022 Episodic Other female genital disorders (1 source) Other specified noninflammatory disorders of vagina; Translations: [Other specified noninflammatory disorders of vagina] Onset: 11-18-2022 Episodic Other liver diseases (2 sources) Fatty (change of) liver, not elsewhere classified; Translations: [Fatty (change of) liver, not elsewhere classified] Onset: 11-15-2022 Chronic Other lower respiratory disease (1 source) Cough; Translations: [Cough in adult] Episodic Other lower respiratory disease (1 source) Wheezing; Translations: [Wheezing] Episodic Other lower respiratory disease (1 source) Wheezing; Translations: [Wheezing] Onset: 11-29-2022 Episodic Other non-traumatic joint disorders (1 source) Hip pain; Translations: [Pain in left hip] Episodic Other non-traumatic joint disorders (1 source) Pain in left hip; Translations: [Pain in left hip] Onset: 04-07-2022 Episodic Other screening for suspected conditions (not mental disorders or infectious disease) (2 sources) Other specified abnormal findings of blood chemistry; Translations: [Other specified abnormal findings of blood chemistry] Onset: 11-15-2022 Episodic Ovarian cyst (2 sources) Unspecified ovarian cyst, unspecified side; Translations: [Unspecified ovarian cyst, unspecified side] Onset: 11-15-2022 Episodic Spondylosis; intervertebral disc disorders; other back problems (2 sources) Cervicalgia; Translations: [CERVICALGIA] Onset: 04-18-2019 Episodic Unclassified (2 sources) HEAVY BLEEDING OVARIAN CYST 11-24-2022 Comment on above: HEAVY BLEEDING OVARI AN CYST Unclassified (1 source) Cough, unspecified; Translations: [Cough, unspecified] Onset: 11-29-2022 Past or Other Problems Problem Classification Problem Date Documented Da te Episodic/Chronic Immunizations and screening for infectious disease (2 sources) Tuberculosis screening status; Translations: [Encounter for screening for respiratory tuberculosis] Onset: 12-12-2021 Episodic Results Test Name Value Interpretation Reference Range Facility APTTon 03-07-2024 aPTT Coag (Bld) [Time] 30.9 s Normal 27.0-38.0 So [facility] Comment on above: Result Comment: APTT Interpretation: This test has not been validated to monitor heparin therapy. APTT test is used as an initial test for suspected bleeding disorder. Anti-Xa UFH test is used to monitor heparin therapy. Performed By: #### 1 15152, 711928, 205956, 863853, 3837545, CD:[id number], [id number] #### [facility] [address] [place] [address] Tie Sawyer: Doug Perez MD AUTO DIFFon 03-07-2024 Baso Count 0.05 x1000 Normal 0.00-0.20 [facility] Comment on above: Performed By: #### 1 46200, 171977, 903546, 745570, 2460419, CD:[id number], [id number] #### [facility] [address] [place], [place] [id number] Tie Sawyer: Doug Perez MD Basos % 0.7 % Normal [facility] Comment on above: Performed By: #### 1 74267, 875148, 948207, 765697, 3186315, CD:[id number], 086435 #### [facility] [address] [place] [address] Tie Sawyer: Doug Perez MD Eos Count 0.29 x1000 Normal 0.00-0.50 [facility] Comment on above: Performed By: #### 1 20109, 326724, 728198, 689017, 4832066, CD:[id number], [id number] #### [facility] [address] [place] [address] Tie Sawyer: Doug Perez MD Eosinophils/100 WBC (Bld) 4.1 % Normal [facility] Comment on above: Performed By: #### 1 03300, 830333, 063746, 607856, 7188120, CD:[id number], 305816 #### [facility] [address] [place] [address] Tie Sawyer: Doug Perez MD Lymph Count 2.48 x1000 Normal 1.20-4.80 [facility] Comment on above: Performed By: #### 1 18532, 036989, 914210, 201328, 9438235, CD:[id number], 641869 #### [facility] [address] [place] [address] Tie Sawyer: Doug Perez MD Lymphocytes/100 WBC (Bld) 34.7 % Normal [facility] Comment on above: Performed By: #### 1 07317, 883140, 591883, 494194, 7961675, CD:[id number], 499800 #### [facility] [address] [place] [address] Tie Sawyer: Doug Perez MD [place] Count 0.64 x1000 Normal 0.10-1.00 [facility] Comment on above: Performed By: #### 1 82649, 597675, 871924, 207430, 2730111, CD:[id number], 567429 #### [facility] [address] [place] [address] Tie Sawyer: Doug Perez MD Monocytes/100 WBC (Bld) 9.0 % Normal [facility] Comment on above: Performed By: #### 1 90786, 675415, 256385, 572014, 1535522, CD:[id number], 881760 #### [facility] [address] [place] [address] Tie Sawyer: Doug Perez MD Neutrophil Count (ANC) 3.68 x1000 Normal 1.40-8.80 So [facility] Comment on above: Performed By: #### 1 73602, 500007, 863535, 096233, 2548821, CD:[id number], 232945 #### [facility] [address] [place] [address] Tie Sawyer: Doug Perez MD Neutrophils/100 WBC (Bld) 51.5 % Normal [facility] Comment on above: Performed By: #### 1 91273, 011653, 613955, 861931, 7010211, CD:[id number], 702300 #### [facility] [address] [place] [address] Tie Sawyer: Doug Perez MD COMPMETAon 03-07-2024 Albumin [Mass/Vol] 3.7 g/dL Normal 3.4-5.0 [facility] Comment on above: Performed By: #### 1 55519, 209984, 181773, 620352, 0534174, CD:[id number], 662525 ####[facility] [address] [place] [address] Medical Director: Doug Perez MD Albumin/Globulin [Mass ratio] 1.2 {ratio} Normal [facility] Comment on above: Performed By: #### 1 36033, 151365, 139964, 734349, 8964741, CD:[id number], 683661 ####[facility] [address] [place] [address] Medical Director: Doug Perez MD Alk Phos 57 unit/L Normal 45-117 [facility] Comment on above: Performed By: #### 1 58318, 997969, 181209, 805220, 5766602, CD:[id number], 647437 ####[facility] [address] [place] [address] Medical Director: Doug Perez MD Bilirubin [Mass/Vol] 0.40 mg/dL Normal 0.30-1.20 [facility] Comment on above: Result Comment: Use of this assay is not recommended for patients undergoing treatment with eltrombopag due to the potential for falsely elevated results. Performed By: #### 1 36446, 166077, 615915, 312751, 0108614, CD:[id number], 699462 ####[facility] [address] [place], [place] [id number]) [phone] Director: Doug Perez MD Calcium [Mass/Vol] 9.0 mg/dL Normal 8.7-10.4 [facility] Comment on above: Performed By: #### 1 33463, 883502, 765472, 673147, 9940152, CD:[id number], 411831 ####[facility] [address] [place], [place] [id number]) [phone] Director: Doug Perez MD Chloride [Moles/Vol] 108 mmol/L High 98-107 [facility] Comment on above: Performed By: #### 1 79388, 893072, 912291, 354442, 0749604, CD:[id number], 150090 ####[facility] [address] [place], [place] [id number]) [phone] Director: Doug Perez MD CO2 [Moles/Vol] 26.0 mmol/L Normal 20.0-31.0 [facility] Comment on above: Performed By: #### 1 79661, 273764, 524426, 894136, 0888841, CD:[id number], 753943 ####[facility] [address] [place] [address] Medical Director: Doug Perez MD Creatinine [Mass/Vol] 0.8 mg/dL Normal 0.5-0.8 [facility] Comment on above: Performed By: #### 1 33927, 284961, 899621, 817168, 2268195, CD:[id number], 955333 ####[facility] [address] [place], [place] [id number]) [phone] Director: Doug Perez MD GFR AA >60 Normal [facility] Comment on above: Result Comment: Afri can [facility] GFR Calc Medical judgement is necessary to interpret GFR. The calculated GFR may not accurately reflect renal status in patients >70 years, women, acutely ill hospitalized patients and patients with acute renal failure or known renal disease. The MDRD GFR formula is valid only for adults greater than 18 years of age. Note: Creatinine clearance (not GFR) should be used for drug dosing. Performed By: #### 1 93701, 450067, 513085, 878685, 0228062, CD:[id number], 687680 ####[facility] [address] [place], [place] [id number]) [phone] Director: Doug Perez MD Globulin (S) [Mass/Vol] 3.1 g/dL Normal [facility] Comment on above: Performed By: #### 1 85887, 914445, 045878, 347982, 2338979, CD:[id number], 399791 ####[facility] [address] [place], [place] [id number]) [phone] Director: Doug Perez MD Glomerular Filtration Rate >60 Normal [facility] Comment on above: Result Comment: Non- GFR Calc Medical judgement is necessary to interpret GFR. The calculated GFR may not accurately reflect renal status in patients >70 years, women, acutely ill hospitalized patients and patients with acute renal failure or known renal disease. The MDRD GFR formula is valid only for adults greater than 18 years of age. Note: Creatinine clearance (not GFR) should be used for drug dosing. Performed By: #### 1 14446, 832232, 131248, 762013, 9877360, CD:[id number], 060532 ####[facility] [address] [place] [address] Medical Director: Doug Perez MD Glucose [Mass/Vol] 90 mg/dL Normal 74-106 [facility] Comment on above: Performed By: #### 1 94491, 248447, 344605, 027590, 0328734, CD:[id number], 521976 ####[facility] [address] [place] [address] Medical Director: Doug Perez MD GOT 16 unit/L Normal 15-37 [facility] Comment on above: Performed By: #### 1 00402, 046812, 971626, 988783, 5512912, CD:[id number], 927090 ####[facility] [address] [place], [place] [id number]) [phone] Director: Doug Perez MD GPT 13 unit/L Normal 10-49 [facility] Comment on above: Performed By: #### 1 16818, 919766, 741958, 748314, 1873589, CD:[id number], 848147 ####[facility] [address] [place] [address] Medical Director: Doug Perez MD Osmolality [Osmolality] 280 mosm/kg Normal 275-295 [facility] Comment on above: Performed By: #### 1 17950, 679425, 617470, [id number], [id number], CD:[id number], [id number] ####[facility] [id number] [place] [address] Medical Director: Doug Perez MD Potassium [Moles/Vol] 4.3 mmol/L Normal 3.5-5.1 [facility] Comment on above: Result Comment: Spec imen slightly hemolyzed. Results may be affected. Performed By: #### 1 83110, 171337, 781981, 759490, [id number], CD:[id number], [id number] ####[facility] [id number] [place] [address] Medical Director: Doug Perez MD Protein [Mass/Vol] 6.8 g/dL Normal 5.7-8.2 [facility] Comment on above: Result Comment: Tota l Protein results may be increased in patients receiving dextran as a blood volume hemotherapist Performed By: #### 1 03222, 640576, 139283, 951516, [id number], CD:[id number], [id number] ####[facility] [id number] [place] [address] Medical Director: Doug Perez MD Sodium [Moles/Vol] 141 mmol/L Normal 135-145 [facility] Comment on above: Performed By: #### 1 64572, 819278, 070544, 048559, [id number], CD:[id number], [id number] ####[facility] [id number] [place], [place] [id number]) [phone] Director: Doug Perez MD Urea nitrogen [Mass/Vol] 10 mg/dL Normal 9-23 [facility] Comment on above: Result Comment: - Ve nipuncture should occur prior to N-Acetyl Cysteine (NAC) or Metamizole (Sulpyrine) administration due to the potential for falsely depressed results. - Blood samples from some patients with monoclonal gammopathies may produce falsely elevated results Performed By: #### 1 30985, 511594, 343147, 617379, [id number], CD:[id number], [id number] ####[facility] [id number] [place] [address] Medical Director: Doug Perez MD Urea nitrogen/Creatinine [Mass ratio] 12.5 mg/mg Normal [facility] Comment on above: Performed By: #### 1 96016, 741494, 997247, 417484, 4644339, CD:[id number], [id number] ####[facility] [id number] [place] [address] Medical Director: Doug Perez MD COVID-19 Molecular SWEDon SARS-CoV-2 (COVID-19) RNA ROWENA+probe Ql (Unsp spec) Negative Normal Negative [facility] Comment on above: Result Comment: This assay is designed to detect the RdRp target of SARS-CoV-2 using rapid molecular isothermal amplification technology. A Negative result does not preclude the possibility of COVID 19 infection since the adequacy of sample collection and/or low viral burden may result in the presence of viral nucleic acids below the analytical sensitivity of this test method. Test results should be used along with other clinical and laboratory data in making the diagnosis. This testing was performed in the [facility] laboratory located at [[place] [address]] Performed By: #### C [id number] #### [facility] [address] [place] [address] Tie Sawyer: Doug Perez MD ED Data STILL PUMP OPERATOR - Texton 024 ED Data STILL PUMP OPERATOR - Text ED Data STILL PUMP OPERATOR Entered On: 03/07/2024 16:49 EDT Performed On: 03/07/2024 16:46 EDT by Raven Powell RN ED General Intake Information Randolph Coma : Document David Coma Scale Problem History : Document Problem History Procedure History : Document Procedure History Safety Screening : Document Safety Screening Referral Source : Work Mode of Arrival * : Ambulance / PD ED KINDER1 Falls Risk : Document Falls Assessment Infection Screening : Document Infection Screening Depression Screening : Document Depression Screening Would you accept a blood transfusion if necessary? : Yes Social History : Document Social History Currently or : Not Applicable Approximate LMP : 2 months pt on depo shot Raven Powell RN - 03/07/2024 16:46 EDT Prearrival FCT EKG : 12 Lead Raven Powell RN - 03/07/2024 16:46 EDT David Coma Scale Eye Opening : Spontaneously Best Verbal Response : Oriented Best Motor Response : Obeys simple commands Randolph Coma Score (Ref) : 15 Raven Powell RN - 03/07/2024 16:46 EDT Problem History (As Of: 03/07/2024 16:49:22 EDT) Problems(Active) Pneumonia (SNOMED CT :568435547 ) Name of Problem: Pneumonia ; Recorder: Raven Powell RN; Confirmation: Confirmed ; Classification: Medical ; Code: [id number] ; Contributor System: [employer] ; Last Updated: 03/07/2024 16:47 EDT ; Life Cycle Date: 03/07/2024 ; Life Cycle Status: Active ; Vocabulary: SNOMED CT POTS (postural orthostatic tachycardia syndrome) (SNOMED CT :1279898606 ) Name of Problem: POTS (postural orthostatic tachycardia syndrome) ; Recorder: Raven Powell RN; Confirmation: Confirmed ; Classification: Medical ; Code: [id number] ; Contributor System: [employer] ; Last Updated: 03/07/2024 16:47 EDT ; Life Cycle Date: 03/07/2024 ; Life Cycle Status: Active ; Vocabulary: SNOMED CT Procedure History ED Urinary Catheter Present on Admit to ED? : No Devices Present on Arrival To ED : None Raven Powell RN - 03/07/2024 16:46 EDT - Procedure History (As Of: 03/07/2024 16:49:22 EDT) Anesthesia Minutes: 0 ; Procedure Name: wisdom teeth ; Procedure Minutes: 0 ; Last Reviewed Dt/Tm: 03/07/2024 16:48:04 EDT Safety Screening Abuse/Violence Concerns? : Patient denies Does the patient have a medically restricted extremity? : No Raven Powell RN - 03/07/2024 16:46 EDT KINDER1 Fall Risk Assessment *Presents to ED Because of Falls : No *Age > 70 : No *Altered Mental Status : No *Impaired Mobility : No *Nursing Judgment : No Raven Powell RN - 03/07/2024 16:46 EDT Infection Screening Travel outside of [place] within past 21 days? : No Positive COVID test in the last 10 days? : No Exposure to and/or close contact with a person who has a laboratory-confirmed COVID test within the last 48 hours. : No Raven Powell RN - 03/07/2024 16:46 EDT Depression Screening Patient able to verbalize? : Yes Feeling Down, Depressed, Hopeless : Not at all Little Interest - Pleasure in Activities : Not at all Initial Depression Screen Score : 0 Depression Screening Score 0 : No IP Pt being evaluated or treated for BH conditions : No Raven Powell RN - 03/07/2024 16:46 EDT Social History Are you being seen for an alcohol related problem? : No Do you or one of your family members feel like you have a drinking problem? : No Raven Powell RN - 03/07/2024 16:46 EDT Social History (As Of: 03/07/2024 16:49:22 EDT) Alcohol: Denies Alcohol Use (Last Updated: 03/07/2024 16:48:54 EDT by Raven Powell RN ) Tobacco: Electronic Cigarette (Last Updated: 03/07/2024 16:49:20 EDT by Raevn Powell RN) Substance Abuse: Denies Substance Abuse (Last Updated: 03/07/2024 16:48:57 EDT by Raven Powell RN ) Normal [facility] ED Discharge Educationon ED Discharge Education Syncope (Fainting ): Care Instructions When you faint, or pass out, you lose consciousness for a short time. A brief drop in blood flow to the brain often causes it. When you fall or lie down, more blood flows to your brain and you regain consciousness. Emotional stress, pain, or overheating?especially if you have been standing?can make you faint. In these cases, fainting is usually not serious. In some instances, your blood pressure can drop and make you faint, which can be secondary to dehydration, which is easily corrected, or something more serious, such as heart problems. Other causes can also mean serious problems. Your doctor may want you to have more tests to rule out these causes. The treatment you need depends on the reason why you fainted. The doctor has checked you carefully, but problems can develop later. If you notice any problems or new symptoms, get medical treatment right away. Follow-up care is a cotton part of your treatment and safety. Be sure to make and go to all appointments, and call your doctor if you are having problems. It's also a good idea to know your test results and keep a list of the medicines you take. How can you care for yourself at home? ? Drink plenty of fluids to prevent dehydration. If you have kidney, heart, or liver disease and have to limit fluids, talk with your doctor before you increase your fluid intake. When should you call for help? Call 911 anytime you think you may need emergency care. For example, call if: ? You have symptoms of a heart problem. These may include: ? Chest pain or pressure. ? Severe trouble breathing. ? A fast or irregular heartbeat. ? Lightheadedness or sudden weakness. ? Coughing up pink, foamy mucus. ? Passing out. After you call 911, the dosier operator may tell you to chew 1 adult-strength or 2 to 4 low-dose aspirin. Wait for an ambulance. Do not try to drive yourself. ? You have symptoms of a stroke. These may include: ? Sudden numbness, tingling, weakness, or loss of movement in your face, arm, or leg, especially on only one side of your body. ? Sudden vision changes. ? Sudden trouble speaking. ? Sudden confusion or trouble understanding simple statements. ? Sudden problems with walking or balance. ? A sudden, severe headache that is different from past headaches. ? You passed out (lost consciousness) again. Watch closely for changes in your health, and be sure to contact your doctor if: ? You do not get better as expected. Lightheadedness or Faintness: Care Instructions Lightheadedness is a feeling that you are about to faint or pass out. You do not feel as if you or your surroundings are moving. It is different from vertigo, which is the feeling that you or things around you are spinning or tilting. Lightheadedness usually goes away or gets better when you lie down. If lightheadedness gets worse, it can lead to a fainting spell. It is common to feel lightheaded from time to time. Lightheadedness usually is not caused by a serious problem. It often is caused by a short-lasting drop in blood pressure and blood flow to your head that occurs when you get up too quickly from a seated or lying position. Follow-up care is a cotton part of your treatment and safety. Be sure to make and go to all appointments, and call your doctor if you are having problems. It's also a good idea to know your test results and keep a list of the medicines you take. How can you care for yourself at home? ? Lie down for 1 or 2 minutes when you feel lightheaded. After lying down, sit up slowly and remain sitting for 1 to 2 minutes before slowly standing up. ? Avoid movements, positions, or activities that have made you lightheaded in the past. ? Get plenty of rest, especially if you have a cold or flu, which can cause lightheadedness. ? Make sure you drink plenty of fluids, especially if you have a fever or have been sweating. ? Do not drive or put yourself and others in danger while you feel lightheaded. When should you call for help? Call 911 anytime you think you may need emergency care. For example, call if: ? You have symptoms of a stroke. These may include: ? Sudden numbness, tingling, weakness, or loss of movement in your face, arm, or leg, especially on only one side of your body. ? Sudden vision changes. ? Sudden trouble speaking. ? Sudden confusion or trouble understanding simple statements. ? Sudden problems with walking or balance. ? A sudden, severe headache that is different from past headaches. ? You have symptoms of a heart attack. These may include: ? Chest pain or pressure, or a strange feeling in the chest. ? Sweating. ? Shortness of breath. ? Nausea or vomiting. ? Pain, pressure, or a strange feeling in the back, neck, jaw, or upper belly or in one or both shoulders or arms. ? Lightheadedness or sudden weakness. ? A fast or irregular heartb (more content not included)... Normal [facility] ED Emergency Severity Index Adult-Texton 03-07-2024 ED Emergency Severity Index Adult-Text JENNA - Adult Entered On: 03/07/2024 16:35 EDT Performed On: 03/07/2024 16:35 EDT by Raven Powell RN JENNA JENNA Level 1 - Adult : No JENNA Level 2 - Adult : No Resources JENNA : Many Raven Powell RN - 03/07/2024 16:35 EDT DCP GENERIC CODE Visit Reason : WEAKNESS Tracking Triage Date/Time : 03/07/2024 16:35 EDT Tracking Reg Status : Complete Tracking Acuity : 3H-Urgent Tracking Group : SGEN Raven Calhoun RN - 03/07/2024 16:35 EDT Recommended JENNA Level : 3 Raven Powell RN - 03/07/2024 16:35 EDT Normal [facility] ED Patient Summaryon 024 ED Patient Summary [facility] Emergency Department Discharge Instructions [address] [place] [address] (Patient Copy) Name: LADY SANDRA : 2000 Allergies: No Known Allergies Diagnosis: Near syncope Visit Date: 03/07/2024 15:21:17 Current Date Time: 03/07/2024 20:25:06 Address: [address] [place] [address] Primary Care Provider: Name: TEDDY LYN Phone: [phone] Emergency Department Care Providers: Primary Physician: NOAH BENNETT MD Thank you for choosing [facility] for your emergency care. You are very important to us. Our goal is to demonstrate our high quality medical care, and provide you with a very good patient experience. You may receive a survey about our service. Please take the time to complete the survey and return it so we can continue to enhance our service. Thank you again for allowing the [facility] Emergency Department to care for your medical needs. If you have questions about your care or follow up information please contact us at [phone]. Follow-Up Instructions __ LADY SANDRA has been given these follow-up instructions: With: Address: When: follow up with your polisher and sander. Return to the emergency department for worsening headache, numbness, tingling or weakness. Within 3 to 5 days With: Address: When: TEDDY LYN DR NOT ON STAFF [address] [place] [address], [address] [place] [phone] Business (1) Within 3 to 5 days Patient Education Materials __ LADY SANDRA has been given the following patient education materials: Syncope (Fainting): Care Instructions When you faint, or pass out, you lose consciousness for a short time. A brief drop in blood flow to the brain often causes it. When you fall or lie down, more blood flows to your brain and you regain consciousness. Emotional stress, pain, or overheating?especially if you have been standing?can make you faint. In these cases, fainting is usually not serious. In some instances, your blood pressure can drop and make you faint, which can be secondary to dehydration, which is easily corrected, or something more serious, such as heart problems. Other causes can also mean serious problems. Your doctor may want you to have more tests to rule out these causes. The treatment you need depends on the reason why you fainted. The doctor has checked you carefully, but problems can develop later. If you notice any problems or new symptoms, get medical treatment right away. Follow-up care is a cotton part of your treatment and safety. Be sure to make and go to all appointments, and call your doctor if you are having problems. It's also a good idea to know your test results and keep a list of the medicines you take. How can you care for yourself at home? ? Drink plenty of fluids to prevent dehydration. If you have kidney, heart, or liver disease and have to limit fluids, talk with your doctor before you increase your fluid intake. When should you call for help? Call 911 anytime you think you may need emergency care. For example, call if: ? You have symptoms of a heart problem. These may include: ? Chest pain or pressure. ? Severe trouble breathing. ? A fast or irregular heartbeat. ? Lightheadedness or sudden weakness. ? Coughing up pink, foamy mucus. ? Passing out. After you call 911, the dosier operator may tell you to chew 1 adult-strength or 2 to 4 low-dose aspirin. Wait for an ambulance. Do not try to drive yourself. ? You have symptoms of a stroke. These may include: ? Sudden numbness, tingling, weakness, or loss of movement in your face, arm, or leg, especially on only one side of your body. ? Sudden vision changes. ? Sudden trouble speaking. ? Sudden confusion or trouble understanding simple statements. ? Sudden problems with walking or balance. ? A sudden, severe headache that is different from past headaches. ? You passed out (lost consciousness) again. Watch closely for changes in your health, and be sure to contact your doctor if: ? You do not get better as expected. Lightheadedness or Faintness: Care Instructions Lightheadedness is a feeling that you are about to faint or pass out. You do not feel as if you or your surroundings are moving. It is different from vertigo, which is the feeling that you or things around you are spinning or tilting. Lightheadedness usually goes away or gets better when you lie down. If lightheadedness gets worse, it can lead to a fainting spell. It is common to feel lightheaded from time to time. Lightheadedness usually is not caused by a serious problem. It often is caused by a short-lasting drop in blood pressure and blood flow to your (more content not included)... Normal [facility] ED Physician Reporton 2023 ED Physician Report LADY SANDRA :2000 Registration Date:03/07/2024 Basic Information Time Seen: _1615 Arrival Mode: Walk-In _ History Source: Patient _ _ _ History limitation: None _ History of Present Illness Patient is a 24-year-old with history of POTS endometriosis, PCOS presenting to the emergency department for dizziness and near syncope. Patient states she felt dizzy at work today. The patient states her systolic blood pressure was 190 and then went up to 200. Patient states she did have pneumonia 1 and half weeks ago and was on amoxicillin. She was not hospitalized. Patient states when she was at work she sat down and then retook her blood pressure was 150 systolic. She talked to her polisher and sander Dr. Lyn and he advised her to take another dose of metoprolol. When she went to stand up after taking metoprolol she almost passed out. She did not hit her head. Patient denies any chest pain or shortness of breath. She denies any headache, numbness, tingling or weakness. Review of Systems Constitutional: Denies Fever, Denies Chills, Denies Diaphoresis EENT: Denies Vision Change, Denies Vision Problems CVS: Denies chest pain, Denies heart palpitations, Denies syncope Pulmonary: Denies Shortness of breath, Denies Cough GI: Denies Abdominal Pain, Denies Nausea, Denies Vomiting, Denies Diarrhea, Denies Black Stools, Denies Bloody Stools : Denies Problems Urinating, Denies Painful Urination MS: Denies Extremity Pain, Denies Neck Pain, Denies Back Pain LYMPH: Denies Ankle Swelling, Denies Leg Swelling, SKIN: Denies Rash Neuro/Psych: Denies Headache, Denies Fainting, dizziness Physical Exam General Appearance: Appears well, Alert, No Distress. Neuro: Speech Clear, Moves all extremities leftward nystagmus. Neck: no jvd, or lymphadenopathy. HEENT: Head Atraumatic, pupils equal and reactive, no conjunctival swelling or scleral icterus,patent nares, tm pearly white bilaterally, no erythema posterior pharynx. Mucosa Moist. no trismus or hemotympanum, or septal hematoma. Respiratory: clear to auscultation, no wheezing or rhonchi. no distress. Respirations nonlabored, Symmetrical expansion Cardiovascular: Rate WNL, Rhythm regular, Normal heart sounds, Pulses equal bilaterally Abdomen/GI: Bowel Sounds Present, Abdomen soft, Non-Tender, No distention Extremity: Normal Appearance, Full ROM, No Vasc Compromise, No tenderness, No Pedal Edema Skin: Color Nml, Warm, Dry Psych: Cooperative and calm. Medical Decision Making Patient gave the history during their visit. Medical records were reviewed from prior admissions and per EMS. Patient is a 24-year-old with history of POTS endometriosis, PCOS presenting to the emergency department for dizziness and near syncope. Patient states she felt dizzy at work today. The patient states her systolic blood pressure was 190 and then went up to 200. Patient states she did have pneumonia 1 and half weeks ago and was on amoxicillin. She was not hospitalized. Patient states when she was at work she sat down and then retook her blood pressure was 150 systolic. She talked to her polisher and sander Dr. Lyn and he advised her to take another dose of metoprolol. When she went to stand up after taking metoprolol she almost passed out. She did not hit her head. Patient denies any chest pain or shortness of breath. She denies any headache, numbness, tingling or weakness. My differential includes but not limited to hypotension, orthostatic hypotension, hypertension, electrolyte disturbance, hypoglycemia, COVID, pneumonia Per my interpretation of ekg 1535 normal sinus rhythm 71 bpm, QTc 399, no ST elevation. Orthostats were negative. Patient was given fluids. Per my interpretation of lab results CMP within normal limits, negative, troponin negative x 2, CBC within normal limits, INR 1, COVID-negative, urine analysis negative for infection. Patient will follow-up with her polisher and sander next 1 to 2 days. She understands discharge instructions and return precautions. Per my interpretation of chest x-ray reveals no acute cardiopulmonary disease. Discussed plan with the patient and had shared decision making on the disposition. Reexamination/Reevalua tion Systolic Blood Pressure: 105 mmHg Diastolic Blood Pressure: 67 mmHg Temperature Oral: 36.7 degC Heart Rate Monitored: 68 bpm Respiratory Rate: 20 br/min Mean Arterial Pressure, Cuff: 79 mmHg SpO2: 98 % Oxygen Therapy: Room air Systolic Blood Pressure Supine: 114 mmHg Diastolic Blood Pressure Supine: 64 mmHg Pulse Supine: 66 bpm Systolic Blood Pressure Sittin mmHg Diastolic Blood Pressure Sittin mmHg Pulse Sittin bpm Systolic Blood Pressure Standin mmHg Diastolic Blood Pressure Standin mmHg Pulse Standin bpm Peripheral Pulse Rate: 65 bpm Weight Dosin.6 kg Discharge/Plan *Discharge Disposition NO DISCHARGE DISPOSITION DOCUMENTED Patient Education Syncope AB (3060) Follow Up (more content not included)... Normal [facility] ED Progress Noteon ED Progress Note pt was at work pt wong s POTS felt hot sweaty pulse was ok for the pt then she took her bp 200/ 2nd time 190/ then nurse took it 158/122. sat down manual bp 150/100. pt sat ate called her polisher and sander took another metoprolol dose 25mg around 1430 then felt O.K. then stood up felt near syncope felt dizzy and foggy on and off ever since. pt states she still feels weak but not like she is going to pass out. 1900: RN assumed care and received handoff report from Doug LEWIS. 2020: Patient discharged, IV removed, VS obtained and stable. Patient reports feeling better. RN provide education on plan of care after leaving and follow up visit with PCP. Patient verbalized understanding and ambulatory from ED with steady gait with boyfriend [facility] ED Triage STILL PUMP OPERATOR - Texton 03-07 ED Triage STILL PUMP OPERATOR - Text ED Triage STILL PUMP OPERATOR Enter ed On: 03/07/2024 19:08 EDT Performed On: 03/07/2024 19:07 EDT by Raven Powell RN Triage Temperature Oral : 36.7 degC(Converted to: 98.1 degF) Systolic Blood Pressure : 112 mmHg Diastolic Blood Pressure : 57 mmHg (LOW) Heart Rate : 81 bpm Respiratory Rate : 20 br/min Oxygen Saturation : 98 % Oxygen Therapy : Room air ED Document Sepsis Screening : Document Sepsis Screening ED Document Reason for Visit : Document Reason for Visit Scale Type : Bed Scale (digital) Weight Dosing : 86.6 kg(Converted to: 190 lb 15 oz) BMI Dosing Calculation : 31 Height/Length Dosing : 167.64 cm(Converted to: 5 ft 6 in) Pain Symptoms : No Raven Powell RN - 03/07/2024 19:07 EDT (As Of: 03/07/2024 19:08:01 EDT) Problems(Active) Pneumonia (SNOMED CT :407266514 ) Name of Problem: Pneumonia ; Recorder: Raven Powell RN; Confirmation: Confirmed ; Classification: Medical ; Code: [id number] ; Contributor System: [employer] ; Last Updated: 03/07/2024 16:47 EDT ; Life Cycle Date: 03/07/2024 ; Life Cycle Status: Active ; Vocabulary: SNOMED CT POTS (postural orthostatic tachycardia syndrome) (SNOMED CT :0977078364 ) Name of Problem: POTS (postural orthostatic tachycardia syndrome) ; Recorder: Raven Powell RN; Confirmation: Confirmed ; Classification: Medical ; Code: [id number] ; Contributor System: [employer] ; Last Updated: 03/07/2024 16:47 EDT ; Life Cycle Date: 03/07/2024 ; Life Cycle Status: Active ; Vocabulary: SNOMED CT Diagnoses(Active) Dizziness Date: 03/07/2024 ; Diagnosis Type: Reason For Visit ; Confirmation: Confirmed ; Clinical Dx: Dizziness ; Classification: Medical ; Clinical Service: Emergency medicine ; Code: PNED ; Probability: 0 ; Diagnosis Code: [id number] Syncope/Near syncope Date: 03/07/2024 ; Diagnosis Type: Reason For Visit ; Confirmation: Confirmed ; Clinical Dx: Syncope/Near syncope ; Classification: Medical ; Clinical Service: Emergency medicine ; Code: PNED ; Probability: 0 ; Diagnosis Code: [id number] Reason for Visit (As Of: 03/07/2024 19:08:01 EDT) Problems(Active) Pneumonia (SNOMED CT :756137972 ) Name of Problem: Pneumonia ; Recorder: Raven Powell RN; Confirmation: Confirmed ; Classification: Medical ; Code: [id number] ; Contributor System: [employer] ; Last Updated: 03/07/2024 16:47 EDT ; Life Cycle Date: 03/07/2024 ; Life Cycle Status: Active ; Vocabulary: SNOMED CT POTS (postural orthostatic tachycardia syndrome) (SNOMED CT :6374263388 ) Name of Problem: POTS (postural orthostatic tachycardia syndrome) ; Recorder: Raven Powell RN; Confirmation: Confirmed ; Classification: Medical ; Code: [id number] ; Contributor System: [employer] ; Last Updated: 03/07/2024 16:47 EDT ; Life Cycle Date: 03/07/2024 ; Life Cycle Status: Active ; Vocabulary: SNOMED CT Diagnoses(Active) Dizziness Date: 03/07/2024 ; Diagnosis Type: Reason For Visit ; Confirmation: Confirmed ; Clinical Dx: Dizziness ; Classification: Medical ; Clinical Service: Emergency medicine ; Code: PNED ; Probability: 0 ; Diagnosis Code: [id number] Syncope/Near syncope Date: 03/07/2024 ; Diagnosis Type: Reason For Visit ; Confirmation: Confirmed ; Clinical Dx: Syncope/Near syncope ; Classification: Medical ; Clinical Service: Emergency medicine ; Code: PNED ; Probability: 0 ; Diagnosis Code: [id number] Sepsis Screening Sepsis Vitals Screening ED : None/ NA(Peds) Raven Powell RN - 03/07/2024 19:07 EDT Normal [facility] HCGon 03-07-2024 HCG, Qual 3.5 mIU/mL Normal [facility] Comment on above: Result Comment: 0 - 3 Negative 3 - 50 Inconclusive >50 Positive Performed By: #### 1 94187, 140262, 699729, 052233, 3897245, CD:[phone], [phone] #### [facility] [address] [place] [address] Tie Sawyer: Doug Perez MD HEMOon 03-07-2024 DIFF? No Normal [facility] Comment on above: Performed By: #### 1 42119, 744768, 666636, 409899, 4194510, CD:[id number], [phone] #### [facility] [address] [place] [address] 02486 Tie Sawyer: Doug Perez MD Erythrocyte distribution width (RBC) [Ratio] 13.2 % Normal 11.5-14.5 [facility] Comment on above: Performed By: #### 1 49442, 546497, 869014, 660067, 5653544, CD:[id number], [phone] #### [facility] [address] [place] [address]6510 Tie Sawyer: Doug Perez MD Hematocrit (Bld) [Volume fraction] 39.4 % Normal 36.0-46.0 [facility] Comment on above: Performed By: #### 1 86564, 025218, 794150, 236359, 4484065, CD:[id number], [phone] #### [facility] [address] [place] [address] 98148 Tie Sawyer: Doug Perez MD Hemoglobin (Bld) [Mass/Vol] 13.3 g/dL Normal 12.0-16.0 [facility] Comment on above: Performed By: #### 1 64086, 613471, 059931, 939853, 7482816, CD:[id number], 238539 #### [facility] [address] [place] [address] Tie Sawyer: Doug Perez MD Instr WBC 7.1 Normal [facility] Comment on above: Performed By: #### 1 32600, 202086, 457741, 247770, 8701438, CD:[phone], [phone] #### [facility] [address] [place] [address] 96696 Tie Sawyer: Doug Perez MD MCH (RBC) [Entitic mass] 27.9 pg Normal 27.0-34.0 [facility] Comment on above: Performed By: #### 1 39801, 557970, 329380, 509240, 5111005, CD:[phone], 041236 #### [facility] [address] [place], [place] [address] Tie Sawyer: Doug Perez MD MCHC (RBC) [Mass/Vol] 33.7 g/dL Normal 32.0-37.0 [facility] Comment on above: Performed By: #### 1 76916, 266241, 016130, 528892, 4034011, CD:[id number], [phone] #### [facility] [address] [place], [place] [address] Tie Sawyer: Doug Perez MD MCV (RBC) [Entitic vol] 82.8 fL Normal 80.0-100.0 [facility] Comment on above: Performed By: #### 1 22961, 593068, 766491, 326427, 5927027, CD:[phone], [phone] #### [facility] [address] [place], [place] [address] Tie Sawyer: Doug Perez MD MDW 16.48 Normal 13.98-20.00 [facility] Comment on above: Result Comment: MDW Interpretation: - For adults age 18-89 in ED, MDW >20.0 may be associated with a higher risk of Sepsis during the first 12 hours of hospital admission. - The predictive value of MDW for identifying Sepsis in patients with hematological abnormalities has not been established. - Interpret with caution when immature granulocytes, variant lymphs, or blast cells are noted on the differential. - Confirm patient age is within intended use population (18-89 years) for MDW. - For ED adults suspected of Sepsis, MDW less than or equal to 20.0 does not rule out Sepsis or the risk of Sepsis. Performed By: #### 1 96824, 469687, 992820, 294589, 9371319, CD:[id number], [phone] #### [facility] [address] [place] [address] 70699 Tie Sawyer: Doug Perez MD Nucleated RBC 0 /100WBC Normal [facility] Comment on above: Performed By: #### 1 97296, 248320, 623999, 309176, 7438316, CD:[phone], 927577 #### [facility] [address] [place] [address] Tie Sawyer: Doug Perez MD Platelet 276 x10 Normal 150-450 [facility] Comment on above: Performed By: #### 1 15077, 049320, 551291, 057995, 9680269, CD:[id number], 150830 #### [facility] [address] [place] [address] 575[address] Tie Sawyer: Doug Perez MD Platelet mean volume (Bld) [Entitic vol] 7.2 fL Low 7.4-10.4 [facility] Comment on above: Performed By: #### 1 63418, 573852, 479293, 271422, 0703916, CD:[id number], 387864 #### [facility] [address] [place] [address] 647[address] Tie Sawyer: Doug Perez MD RBC 4.76 x10 Normal 4.20-5.40 [facility] Comment on above: Result Comment: Note : RBC morphology is normal unless otherwise stated. Evaluation performed only if differential is requested. Performed By: #### 1 52085, 055236, 618186, 229933, 7009322, CD:[phone], 918143 #### [facility] [address] [place] [address] 71167 Tie Sawyer: Doug Perez MD WBC 7.1 x10 Normal 4.5-11.0 [facility] Comment on above: Performed By: #### 1 47195, 090339, 389639, 990895, 3294735, CD:[id number], 607357 #### [facility] [address] [place] [address] Tie Sawyer: Doug Perez MD PT INRon 03-07-2024 INR Coag (PPP) [Relative time] 1.0 {INR} Normal [facility] Comment on above: Result Comment: INR Reference Range: Normal reference range for INR on patients not on anticoagulant therapy: 0.9-1.1 General therapeutic range for patients on anticoagulant therapy: 2.0-3.5 Performed By: #### 1 34256, 836461, 643109, 104352, 8176329, CD:[phone], 405299 #### [facility] [address] [place] [address] Tie Sawyer: Doug Perez MD Protime Patient 11.8 seconds Normal 9.8-12.8 [facility] Comment on above: Performed By: #### 1 99666, 534684, 707542, 895014, 1701686, CD:[phone], 357619 #### [facility] [address] [place] [address] Tie Sawyer: Doug Perez MD Pharmacy Clinical Interventi ons-Texton 03-07-2024 Pharmacy Clinical Interventions-Text Pharmacy Clinical Interventions Entered On: 03/07/2024 16:54 EDT Performed On: 03/07/2024 16:53 EDT by Stephany Ambrosio CPhT Interventions Intervention Type Pharmacy : Medication history Pharmacy Order Initiated By : Radiology Transcriptionist Clinical Importance Pharmacy : Potentially major Prescriber Response Pharmacy : Corrected prior to contact Patient Clinical Outcome Pharmacy : Avoided potential risk Pharmacist Intervention Time : 10 Pharmacy Additional Information : verified meds with pt no meds taken today added Depo shot(medroxyprogestero ne), metoprolol tartrate, and benadryl PRN [facility], [facility], edmund Ambrosio surgical specialist, Stephany - 03/07/2024 16:53 EDT Normal [facility] TROPONIN HS 0HRon 03-07-2024 Troponin HS 0 Hr <3 Low 3-34 [facility] Comment on above: Result Comment: Spec imens from some individuals with pathologically high gamma globulin levels may demonstrate depressed troponin values Performed By: #### 1 44156, 549395, 611515, 365749, 8511399, CD:[phone], 924827 ####[facility] [address] [place], [place] [address]) [phone] Director: Doug Perez MD TROPONIN HS 2HRon 03-07-2024 Delta Troponin 2 Hr 0 pg/mL Normal 0-14 [facility] Comment on above: Result Comment: The term acute myocardial infarction should be used when there is acute myocardial injury with clinical evidence of acute myocardial ischemia and the rise or fall of serial Troponin HS values (delta troponin) greater than or equal to 15 pg/mL with at least one Troponin HS value above the 99th percentile reference range Performed By: #### C [id number] ####[facility] [address] [place] [address] Medical Director: Doug Perez MD Troponin HS 2 Hr <3 Low 3-34 [facility] Comment on above: Result Comment: Spec imens from some individuals with pathologically high gamma globulin levels may demonstrate depressed troponin values Performed By: #### C [id number] ####[facility] [address] [place], [place] [id number]) [phone] Director: Doug Perez MD UAon 03-07-2024 Appearance, U Clear Normal Clear [facility] Comment on above: Performed By: #### 1 07883 ####[facility] [address] [place] [address] Medical Director: Doug Perez MD Bilirubin, U Negative Normal Negative [facility] Comment on above: Result Comment: Bili pagan, U: Initial positive urine bilirubin results are not confirmed. Interfering substances may include elevated urobilinogen. Trace = 0.5-1.0 mg/dL Small = 2.0-4.0 mg/dL Moderate = 6.0-8.0 mg/dL Large = 10 mg/dl and greater Performed By: #### 1 68483 ####[facility] [address] [place] [address] Medical Director: Doug Perez MD Blood, U Negative Normal Negative [facility] Comment on above: Result Comment: Bloo d, U: Trace = 0.03-0.05 mg/dL Small = 0.06-0.1 mg/dL Moderate = 0.2-0.5 mg/dL Large = 1.0 mg/dL and greater Performed By: #### 1 01884 ####[facility] [address] [place] [address] Medical Director: Doug Perez MD Color, U Yellow Normal Yellow [facility] Comment on above: Performed By: #### 1 63605 ####[facility] [address] [place] [address] Medical Director: Doug Perez MD Glucose Qual, U Negative Normal Negative [facility] Comment on above: Performed By: #### 1 39098 ####[facility] [address] [place] [address] Medical Director: Doug Perez MD Ketones, U Negative Normal Negative [facility] Comment on above: Performed By: #### 1 02971 ####[facility] [address] [place] [address] Medical Director: Doug Perez MD Leukocyte Esterase, U Negative Normal Negative [facility] Comment on above: Result Comment: Leuk ocyte Esterase, U: Trace = 25 Pooja/uL Small = 75 Pooja/uL Moderate = 250 Pooja/uL Large = 500 Pooja/uL and greater Performed By: #### 1 79972 ####[facility] [address] [place], [place] [address]) [phone] Director: Doug Perez MD Nitrite, U Negative Normal Negative [facility] Comment on above: Performed By: #### 1 46361 ####[facility] [address] [place], [place] [address]) [phone] Director: Doug Perez MD pH, U 7.5 Normal 4.5-8.0 [facility] Comment on above: Performed By: #### 1 32938 ####[facility] [address] [place], [place] [address]) [phone] Director: Doug Perez MD Protein, U Negative Normal Negative [facility] Comment on above: Performed By: #### 1 46133 ####[facility] [address] [place], [place] [address]) [phone] Director: Doug Perez MD Specific [place], U 1.015 Normal 1.001-1.035 [facility] Comment on above: Performed By: #### 1 37490 ####[facility] [address] [place], [place] [address]) [phone] Director: Doug Perez MD U MICRO Not Indicated Normal [facility] Comment on above: Performed By: #### 1 35568 ####[facility] [address] [place], [place] [address]) [phone] Director: Doug Perez MD Urobilinogen Qual, U < 2 mg/dl Normal < 2 mg/dl [facility] Comment on above: Result Comment: Urob ilinogen, U: EU/dl and mg/dl are equivalent units. Performed By: #### 1 82283 ####[facility] [address] [place], [place] [address]) [phone] Director: Doug Perez MD XR CHEST PORTABLEon 03-07-20 24 XR CHEST PORTABLE EXAMINATION: ONE VIE W CHEST XR CLINICAL INDICATION: Female, 24 years old. CHEST PAIN. TECHNIQUE: 1 View, AP supine, X-ray of the chest was performed. [id number]. COMPARISON: No prior exam. FINDINGS: Lungs are clear. No pleural effusion. No pneumothorax. Cardiomediastinal silhouette is unremarkable. Bones are intact. IMPRESSION: No acute or significant abnormalities. Electronically signed by: Glenroy Burr MD 03/07/2024 04:40 PM EDT RP Technologist: MURPHY CARMICHAEL Dictated By: ENE BURR MD Signed By: ENE BURR MD Signed Out: 03/07/24 16:40:05 Normal [facility] CBC WITH AUTO DIFFERENTIALon 12-21-2023 AUTO NRBC 0.0 % Normal [facility] Comment on above: Performed By: #### L [id number] #### [facility] [address] [place] [address] Willem Mora M.D. [id number] AUTO NRBC ABS COUNT 0.00 K/mcL Normal 0.00-0.00 [facility] Comment on above: Performed By: #### Chris [id number] #### [facility] [address] [place] [address] Willem Mora M.D. [id number] BASOPHILS ABSOLUTE COUNT 0.06 K/mcL Normal 0.00-0.30 [facility] Comment on above: Performed By: #### Chris [id number] #### [facility] [address] [place] [address] Willem Mora M.D. [id number] Basophils/100 WBC (Bld) 0.7 % Normal [facility] Comment on above: Performed By: #### Chris [id number] #### [facility] [address] [place] [address] Willem Mora M.D. [id number] Eosinophils (Bld) [#/Vol] 1.48 10*3/uL High 0.00-0.50 [facility] Comment on above: Performed By: #### L [id number] #### [facility] [address] [place] [address] Willem Mora M.D. [id number] Eosinophils/100 WBC (Bld) 18.4 % Normal [facility] Comment on above: Performed By: #### L [id number] #### [facility] [address] [place] [address] Willem Mora M.D. [id number] Erythrocyte distribution width (RBC) [Ratio] 12.2 % Normal 11.6-14.8 [facility] Comment on above: Performed By: #### L [id number] #### [facility] [address] [place] [address] Willem Mora M.D. [id number] Hematocrit (Bld) [Volume fraction] 44.0 % Normal 36.0-46.0 [facility] Comment on above: Performed By: #### L [id number] #### [facility] [address] [place] [address] Willem Mora M.D. [id number] Hemoglobin (Bld) [Mass/Vol] 14.9 g/dL Normal 12.0-16.0 [facility] Comment on above: Performed By: #### L [id number] #### [facility] [address] [place] [address] Willem Mora M.D. [id number] IG ABSOLUTE 0.08 K/mcL Normal 0.00-0.30 [facility] Comment on above: Performed By: #### L [id number] #### [facility] [address] [place] [address] Willem Mora M.D. [id number] IG PERCENT 1.00 % Normal [facility] Comment on above: Result Comment: The IG parameter is the percentage of metamyelocytes, myelocytes and promyelocytes. An immature granulocyte count (IG) of 1% or more suggests the possibility of infection, an IG count of 3% is very likely related to an infection. Performed By: #### L [id number] #### [facility] [address] [place] [address] Willem Mora M.D. [id number] Lymphocytes (Bld) [#/Vol] 2.49 10*3/uL Normal 0.90-4.00 [facility] Comment on above: Performed By: #### L [id number] #### [facility] [address] [place] [address] Willem Mora M.D. [id number] Lymphocytes/100 WBC (Bld) 30.9 % Normal [facility] Comment on above: Performed By: #### L [id number] #### [facility] [address] [place] [address] Willem Mora M.D. [id number] MCH (RBC) [Entitic mass] 27.4 pg Normal 26.0-34.0 [facility] Comment on above: Performed By: #### L [id number] #### [facility] [address] [place], [place] [address] Willem Mora M.D. [id number] MCV (RBC) [Entitic vol] 80.9 fL Normal 80.0-100.0 [facility] Comment on above: Performed By: #### L [id number] #### [facility] [address] [place] [address] Willem Mora M.D. [id number] MEAN CORPUSCULAR HEMOGLOBIN CONC 33.9 g/dL Normal 31.0-37.0 [facility] Comment on above: Performed By: #### L [id number] #### [facility] [address] [place] [address] Willem Mora M.D. [id number] Monocytes (Bld) [#/Vol] 0.35 10*3/uL Normal 0.30-0.90 [facility] Comment on above: Performed By: #### L [id number] #### [facility] [address] [place], [place] [address] Willem Mora M.D. [id number] Monocytes/100 WBC (Bld) 4.3 % Normal [facility] Comment on above: Performed By: #### Chris [id number] #### [facility] [address] [place] [address] Willem Mora M.D. [id number] NEUTROPHILS ABSOLUTE COUNT 3.59 K/mcL Normal 1.70-7.00 [facility] Comment on above: Performed By: #### Chris [id number] #### [facility] [address] [place] [address] Willem Mora M.D. [id number] Neutrophils/100 WBC (Bld) 44.7 % Normal [facility] Comment on above: Performed By: #### Chris [id number] #### [facility] [address] [place], [place] [address] Willem Mora M.D. [id number] Platelet mean volume (Bld) [Entitic vol] 9.1 fL Low 9.4-12.4 [facility] Comment on above: Performed By: #### L [id number] #### [facility] [address] [place] [address] Willem Mora M.D. [id number] Platelets (Bld) [#/Vol] 326 10*3/uL Normal 150-400 [facility] Comment on above: Performed By: #### L [id number] #### [facility] [address] [place], [place] [address] Willem Mora M.D. [id number] RBC (Bld) [#/Vol] 5.44 10*6/uL High 4.00-5.20 [facility] Comment on above: Performed By: #### L [id number] #### [facility] [address] [place] [address] Willem Mora M.D. [id number] WBC (Bld) [#/Vol] 8.05 10*3/uL Normal 4.50-11.00 [facility] Comment on above: Performed By: #### L [id number] #### [facility] [address] [place] [address] Willem Mora M.D. [id number] CHEM 12-21-2023 Anion gap [Moles/Vol] 16 mmol/L Normal 10-20 [facility] Comment on above: Order Comment: [facility] has implemented the eGFR calculation approach that does not have a coefficient for race that conforms to the NKF-ASN Task Force Recommendations. Performed By: #### 4 6953 #### [facility] [address] [place] [address] Willem Mora M.D. [id number] Chloride [Moles/Vol] 108 mmol/L Normal 98-108 [facility] Comment on above: Order Comment: [facility] has implemented the eGFR calculation approach that does not have a coefficient for race that conforms to the NKF-ASN Task Force Recommendations. Performed By: #### 4 6953 #### [facility] [address] [place] [address] 18728 Willem Mora M.D. [id number] Creatinine [Mass/Vol] 0.71 mg/dL Normal 0.40-1.10 [facility] Comment on above: Order Comment: [facility] has implemented the eGFR calculation approach that does not have a coefficient for race that conforms to the NKF-ASN Task Force Recommendations. Performed By: #### 4 6953 #### [facility] [address] [place] [address] Willem Mora M.D. [id number] EGFR 124 mL/min/1.73 m2 Normal >=60 [facility] Comment on above: Order Comment: [facility] has implemented the eGFR calculation approach that does not have a coefficient for race that conforms to the NKF-ASN Task Force Recommendations. Result Comment: Leigh mated GFR was calculated using the 2020 CKD-EPI creatinine equation. Performed By: #### 4 6953 #### [facility] [address] [place] [address] Willem Mora M.D. [id number] Glucose [Mass/Vol] 133 mg/dL High 65-99 [facility] Comment on above: Order Comment: [facility] has implemented the eGFR calculation approach that does not have a coefficient for race that conforms to the NKF-ASN Task Force Recommendations. Performed By: #### 4 6953 #### [facility] [address] [place] [address] 210[address] Willem Mora M.D. [id number] HCO3 (Bld) [Moles/Vol] 21 mmol/L Normal 21-32 [facility] Comment on above: Order Comment: [facility] has implemented the eGFR calculation approach that does not have a coefficient for race that conforms to the NKF-ASN Task Force Recommendations. Performed By: #### 4 6953 #### [facility] [address] [place] [address] Willem Mora M.D. [id number] Potassium [Moles/Vol] 3.8 mmol/L Normal 3.5-5.1 [facility] Comment on above: Order Comment: [facility] has implemented the eGFR calculation approach that does not have a coefficient for race that conforms to the NKF-ASN Task Force Recommendations. Performed By: #### 4 6953 #### [facility] [address] [place] [address] 12880 Willem Mora M.D. [id number] Sodium [Moles/Vol] 141 mmol/L Normal 135-145 [facility] Comment on above: Order Comment: [facility] has implemented the eGFR calculation approach that does not have a coefficient for race that conforms to the NKF-ASN Task Force Recommendations. Performed By: #### 4 6953 #### [facility] [address] [place] [address] 514[address] Willem Mora M.D. [id number] Urea nitrogen [Mass/Vol] 9 mg/dL Normal 8-25 [facility] Hospital Comment on above: Order Comment: [facility] has implemented the eGFR calculation approach that does not have a coefficient for race that conforms to the NKF-ASN Task Force Recommendations. Performed By: #### [id number] #### [facility] [address] [place] [id number] Willem Mora M.D. [id number] Urea nitrogen/Creatinine [Mass ratio] 12.7 mg/mg Normal 10.0-20.0 [facility] Comment on above: Order Comment: [facility] has implemented the eGFR calculation approach that does not have a coefficient for race that conforms to the NKF-ASN Task Force Recommendations. Performed By: #### [id number] #### [facility] [address] [place] [address] Willem Mora M.D. [id number] ED Procedureon 12-21-2023 ED Procedure EKG 12-lead Date/Time: 12/21/2023 12:21 PM Performed by: Kaleb Reyes MD Authorized by: Kaleb Reyes MD Interpreted by ED attending physician Previous ECG: no previous ECG available Rhythm: sinus rhythm and sinus tachycardia BPM: 124 Conduction: conduction normal ST Segments: ST segments normal T Waves: T waves normal Clinical impression: sinus tachycardia AUTHENTICATED BY KALEB REYES, ON 12/21/2023 12:45:36 Normal [facility] ED Prov Noteon 12-21-2023 ED Prov Note ED PROVIDER NOTE [facility] EMERGENCY DEPARTMENT NAME: Lady Sandra AGE: 23 y.o. : 2000 VISIT DATE: 12/21/2023 CSN: [id number] PCP: No, Physician Chief Complaint Patient presents with Chest Pain Shortness of Breath Palpitations HPI 23-year-old presents emergency department with complaints of elevated heart rate. Patient states symptoms started on the of this month. She was seen at [facility] had a workup done at that time was placed on a Holter monitor. She states that she had returned her Holter monitor had not heard any results with regards to this. She has noted her heart rate being elevated has been having some intermittent episodes of chest pressure as well. She notes no dyspnea at rest. She states when her heart rate is elevated she does feel short of breath. She has been on no new medication she denies any recent illnesses. Symptoms are not provoked by exertion. Past Medical History: Diagnosis Date Asthma Past Surgical History: Procedure Laterality Date MOUTH SURGERY History reviewed. No pertinent family history. Social History Socioeconomic History Marital status: Single Tobacco Use Smoking status: Never Smokeless tobacco: Never Vaping Use Vaping Use: Never used Substance and Sexual Activity Alcohol use: Never Drug use: Never Previous Medications Medication Sig albuterol (PROVENTIL HFA) 90 mcg/actuation inhaler Inhale 2 (two) puffs every 6 (six) hours as needed for wheezing . albuterol (PROVENTIL) 2.5 mg /3 mL (0.083 %) nebulizer solution Take 3 mL (2.5 mg total) by nebulization every 6 (six) hours as needed for wheezing . albuterol 90 mcg/actuation inhaler Inhale 2 (two) puffs . levalbuterol (XOPENEX) 1.25 mg/3 mL nebulizer solution Take 3 mL (1.25 mg total) by nebulization every 4 (four) hours as needed for wheezing . ondansetron (ZOFRAN-ODT) 4 MG disintegrating tablet Dissolve 1 (one) tablet (4 mg total) on top of tongue every 8 (eight) hours as needed . predniSONE (DELTASONE) 10 mg tablet pack 4 tabs po x 4 days, 3 tabs po x 4 days, 2 tabs po x 4 days, 1 tab po x 4 days . No Known Allergies Review of Systems All other systems reviewed and are negative. Patient Vitals for the past 24 hrs: BP Temp Temp src Pulse Resp SpO2 Height Weight 12/21/23 1400 103/65 -- -- 94 (!) 20 97 % -- -- 12/21/23 1348 111/69 -- -- (!) 110 17 97 % -- -- 12/21/23 1236 -- -- -- (!) 133 (!) 21 97 % -- -- 12/21/23 1219 131/77 98.4 degrees F (36.9 degrees C) Oral (!) 129 18 98 % 5' 6 78.5 kg (173 lb) Physical Exam Vitals and nursing note reviewed. Constitutional: General: She is not in acute distress. Appearance: She is well-developed. HENT: Head: Normocephalic and atraumatic. Cardiovascular: Rate and Rhythm: Regular rhythm. Tachycardia present. Musculoskeletal: General: Normal range of motion. Cervical back: Full passive range of motion without pain and normal range of motion. Pulmonary: Effort: Pulmonary effort is normal. Breath sounds: Normal breath sounds. Abdominal: General: Abdomen is flat. Tenderness: There is no abdominal tenderness. Skin: General: Skin is warm and dry. Neurological: General: No focal deficit present. Mental Status: She is alert and oriented to person, place, and time. Sensory: No sensory deficit. Motor: No weakness. Psychiatric: Mood and Affect: Mood normal. Laboratory & Radiographic Imaging (if done): Results for orders placed or performed during the hospital encounter of 12/21/23 Chem 7 Result Value Ref Range Sodium 141 135 - 145 mmol/L Potassium 3.8 3.5 - 5.1 mmol/L Chloride 108 98 - 108 mmol/L Bicarbonate 21 21 - 32 mmol/L Anion Gap 16 10 - 20 mmol/L Glucose 133 (H) 65 - 99 mg/dL BUN 9 8 - 25 mg/dL Creatinine 0.71 0.40 - 1.10 mg/dL eGFR 124 >=60 mL/min/1.73 m2 BUN/Creatinine Ratio 12.7 10.0 - 20.0 TSH with Reflex Free T4 Result Value Ref Range TSH 0.87 0.27 - 4.20 mcIU/mL HCG (QUALITATIVE) Result Value Ref Range Beta-hCG Qual Negative Negative Magnesium Level Result Value Ref Range Magnesium 2.3 1.6 - 2.4 mg/dL Light Blue Top Result Value Ref Range Extra Tube Hold for add-ons. Lim Top Result Value Ref Range Extra Tube Hold for add-ons. CBC Auto Differential Result Value Ref Range WBC 8.05 4.50 - 11.00 K/mcL RBC 5.44 (H) 4.00 - 5.20 M/mcL Hemoglobin 14.9 12.0 - 16.0 g/dL Hematocrit 44.0 36.0 - 46.0 % MCV 80.9 80.0 - 100.0 fL MCH 27.4 26.0 - 34.0 pg MCHC 33.9 31.0 - 37.0 g/dL Platelets 326 150 - 400 K/mcL RDW - CV 12.2 11.6 - 14.8 % MPV 9.1 (L) 9.4 - 12.4 fL Neutrophils 44.7 % Lymphocytes 30.9 % Monocytes 4.3 % Eosinophils 18.4 % Basophils 0.7 % IG Percent 1.00 % Neutrophils Abs 3.59 1.70 - 7.00 K/mcL Lymphocytes Abs 2.49 0.90 - 4.00 K/mcL Monocytes Abs 0.35 0.30 - 0.90 K/mcL Eosinophils Abs 1.48 (H) 0.00 - 0.50 K/mcL Basophils Abs 0.06 0.00 - 0.30 K/mcL IG A (more content not included)... Normal [facility] H AND Louie 12-21-2023 H AND P -- Attestation signed by Lea Suresh DO at 12/21/2023 4:39 PM I have personally performed a [id number] diagnostic evaluation of this patient on 08/24/2023. After discussing the case with Mukesh Lyn PA-C, I performed the substantive part of the medical decision making for this encounter and approved the CHRIS's plan of care with the following additions: 23 y.o. female PMH asthma who [facility] with palpitations and chest pressure x 1.5 weeks. No significant workup noted. I personally reviewed vitals, labs (CBC, BMP, TSH) and ED notes. I reviewed EKG which showed sinus tachycardia. Patient's multiple family members present at [facility]. 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 Not on home meds. Denied fever, h/o thrombosis, calf pain, and prothrombotic risk factors. On room air. Tolerating po intake except for one episode of vomiting within the past week. Admits to h/o IBS but no progression of diarrhea. Denied presyncope or syncopal episodes. Admits to intermittent dyspnea. Associated chest pressure not exacerbated by activity and not better with rest. No personal h/o atherosclerotic disease or family h/o early cardiac disease, HOCM or other congenital heart conditions. Per ED note had O/P holter monitor and was told results while while in ED showed no acute cardiac events. Given 5mg IV lopressor in ED with resolution of tachycardia. Pt declined IVF bolus. Plan to discharge from ED with trial of beta danielle and follow up with [facility] and establish with PCP. Pt and family agreeable to this plan. Encouraged ongoing po hydration. Physical Exam (Focused elements based on presentation): BP 112/74 Pulse 79 Temp 98.4 degrees F (36.9 degrees C) (Oral) Resp 18 Ht 5' 6 Wt 78.5 kg (173 lb) SpO2 98% BMI 27.92 kg/m General: NAD, resting in bed comfortably Eyes: EOMI, anicteric ENT: no facial droop noted Cardiovascular: Regular rate and rhythm. Respiratory: on room air without distress Gastrointestinal: Soft, non tender Musculoskeletal: No edema. SMITH x4 Skin: warm, dry Neuro: Alert and awake. No focal deficits Psych: Mood calm, cooperative [facility] History and Physical Note 12/21/23 Lady Sandra 2000 [id number] Assessment/Plan: Lady Sandra is a 23 y.o. female with a history of Asthma who [facility] with palpitations x 10 days. 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 IN ED: lysunita wnl, ecg showed sinus tach at 124 bpm. S/p IV lopressor with resolution of tachycardia. Discussed with Dr. Smith(EP), reccommended BB and OP f/u. [facility] clinic appointment 12/28/23 at 11:30. Dc'd with BB Code status: full unv Current living situation: home Expected Disposition: same Estimated discharge date: 12/21/23 Admitted with these risk variables:None. Please see assessment and plan for further details. Chief Complaint: Palpitations History of Present Illness: Lady Sandra is a 23 y.o. female with a history of Asthma who [facility] with palpitations x 10 days. Ecg sinus tach at 124, no leukocytosis, TSH 0.87, Mg 2.3, K+3.8 ECG tracing from the ED was reviewed did show a sinus tachycardia at 124. Patient does have history of palpitation ongoing for about 10 days. Worse from a sitting to a standing position describes it as palpitations, typically does not have them otherwise from sitting to standing or resolved within a few minutes. Patient says every once while when she rotates she will have a palpitation or 2 as well, but appears to be most likely from a sitting to a standing position. Patient states she works as a EMT, and this did happen while on shift and she did have positive orthostatic vital signs as well. Patient states she was seen at a small [facility] about a week ago, and had a workup done for this in the ER consisting of chest x-ray as well as a CT PE which was negative, was discharged home at that time. States has continued, was given a Holter monitor but has not received the results. Patient is unsure if she will as they have put her name incorrectly into the system at the [facility] labs booster. I did discuss case with on-call EP physician Dr. Smith, we both suspect this is most likely physiological given no prior history of cardiac abnormalities in the family or congenital heart diseases. Patient does periodically vape which could be contributing as well. Recommended beta-danielle, IV hydration outpatient follow-up discussed this with patient patient is agreeable to discharge. Patient does not have a PCP did discuss with social work in ED, an appointment for lopez (more content not included)... Normal [facility] HCG, SERUM, QUALITATIVEon BETA-HCG QUAL BLOOD Negative Normal Negative [facility] Comment on above: Order Comment: Negat kong: The result is less than or equal to 5 mIU/mL of HCG. Performed By: #### [id number] #### [facility] [address] [place] [address] Willem Mora M.D. [id number] MAGNESIUM LEVELon 12-21-2023 Magnesium [Mass/Vol] 2.3 mg/dL Normal 1.6-2.4 [facility] Comment on above: Performed By: #### 4 [id number] #### [facility] [address] [place] [address] Willem Mora M.D. [id number] TSH WITH REFLEX FREE T4on TSH Qn 0.87 m[IU]/L Normal 0.27-4.20 [facility] Comment on above: Performed By: #### 4 [id number] #### [facility] [address] [place] [address] Willem Mora M.D. [id number] POC BinaxNOW Rapid SARS-COV2 Antigenon 11-29-2022 SARS-CoV-2 (COVID-19) Ag IA.rapid Ql (Resp) Negative Negative [facility] alth SARS-CoV-2 (COVID-19) Ag IA. rapid Ql (Resp)on 11-29-2022 Internal Control Pass Yes Yes [facility] Interpretation and review of laboratory results Normal [facility] CBC AND DIFFERENTIALon 11-24 % AUTOMATED IMMATURE GRAN 0.3 % Normal 0.0 - 0.9 [facility] Comment on above: Result Comment: Suzan ture Granulocyte Count (IG) includes promyelocytes, myelocytes and metamyelocytes but does not include bands. Percent differential counts (%) should be interpreted in the context of the absolute cell counts (cells/L). Performed By: #### U A #### [address] [address] Basophils (Bld) [#/Vol] 0.03 10*3/uL Normal 0.00 - 0.10 [facility] Comment on above: Performed By: #### U A #### [address] [address] Basophils/100 WBC (Bld) 0.5 % Normal 0.0 - 2.0 [facility] Comment on above: Performed By: #### U A #### [address] [address] Eosinophils (Bld) [#/Vol] 0.34 10*3/uL Normal 0.00 - 0.70 [facility] Comment on above: Performed By: #### U A #### [address] [address] Eosinophils/100 WBC (Bld) 5.2 % Normal 0.0 - 6.0 [facility] Comment on above: Performed By: #### U A #### [address] [address] Erythrocyte distribution width (RBC) [Ratio] 12.4 % Normal 11.5 - 14.5 [facility] Comment on above: Performed By: #### U A #### [address] [address] Hematocrit (Bld) [Volume fraction] 41.1 % Normal 36.0 - 46.0 [facility] Comment on above: Performed By: #### U A #### [address] [address] Hemoglobin (Bld) [Mass/Vol] 13.7 g/dL Normal 12.0 - 16.0 [facility] Comment on above: Performed By: #### U A #### [address] [address] Lymphocytes (Bld) [#/Vol] 1.76 10*3/uL Normal 1.20 - 4.80 [facility] Comment on above: Performed By: #### U A #### [address] [address] Lymphocytes/100 WBC (Bld) 27.0 % Normal 13.0 - 44.0 [facility] Comment on above: Performed By: #### U A #### [address] [address] MCHC (RBC) [Mass/Vol] 33.3 g/dL Normal 32.0 - 36.0 [facility] Comment on above: Performed By: #### U A #### [address] [address] MCV (RBC) [Entitic vol] 83 fL Normal 80 - 100 [facility] Comment on above: Performed By: #### U A #### [address] [address] Monocytes (Bld) [#/Vol] 0.51 10*3/uL Normal 0.10 - 1.00 [facility] Comment on above: Performed By: #### U A #### [address] [address] Monocytes/100 WBC (Bld) 7.8 % Normal 2.0 - 10.0 [facility] Comment on above: Performed By: #### U A #### [address] [address] Neutrophils (Bld) [#/Vol] 3.86 10*3/uL Normal 1.20 - 7.70 [facility] Comment on above: Performed By: #### U A #### [address] [address] Neutrophils/100 WBC (Bld) 59.2 % Normal 40.0 - 80.0 [facility] Comment on above: Performed By: #### U A #### [address] [address] Platelets (Bld) [#/Vol] 164 10*3/uL Normal 150 - 450 [facility] Comment on above: Performed By: #### U A #### [address] [address] RBC 4.98 x10E12/L Normal 4.00 - 5.20 [place] Comment on above: Performed By: #### U A #### [address] [address] WBC (Bld) [#/Vol] 6.5 10*3/uL Normal 4.4 - 11.3 [facility] Comment on above: Performed By: #### U A #### [address] [address] COMPREHENSIVE PANELon 2022 Albumin [Mass/Vol] 4.1 g/dL Normal 3.4 - 5.0 [facility] Comment on above: Performed By: #### U A #### [address] [address] ALP [Catalytic activity/Vol] 56 U/L Normal 33 - 110 [facility] Comment on above: Performed By: #### U A #### [address] [address] ALT [Catalytic activity/Vol] 105 U/L High 7 - 45 [facility] Comment on above: Result Comment: Lisha ents treated with Sulfasalazine may generate falsely decreased results for ALT. Performed By: #### U A #### [address] [address] Anion gap [Moles/Vol] 10 mmol/L Normal 10 - 20 [facility] on above: Performed By: #### U A #### [address] [address] AST [Catalytic activity/Vol] 55 U/L High 9 - 39 [facility] Comment on above: Result Comment: MILD HEMOLYSIS DETECTED. The result may be falsely elevated due to hemolysis or other interferents. Clinical correlation is recommended. Repeat testing may be considered. Performed By: #### U A #### [address] [address] Bilirubin [Mass/Vol] 0.4 mg/dL Normal 0.0 - 1.2 [facility] Comment on above: Performed By: #### U A #### [address] [address] Calcium [Mass/Vol] 8.9 mg/dL Normal 8.6 - 10.3 [place] [facility] Comment on above: Performed By: #### U A #### [address] [address] Chloride [Moles/Vol] 108 mmol/L High 98 - 107 [facility] Comment on above: Performed By: #### U A #### [address] [address] Creatinine [Mass/Vol] 0.59 mg/dL Normal 0.50 - 1.05 [facility] Comment on above: Performed By: #### U A #### [address] [address] eGFR FEMALE >90 Normal >90 [facility] Comment on above: Result Comment: CALC ULATIONS OF ESTIMATED GFR ARE PERFORMED USING THE 2020 CKD-EPI STUDY REFIT EQUATION WITHOUT THE RACE VARIABLE FOR THE IDMS-TRACEABLE CREATININE METHODS. https://jasn.asnjournals.org/content/early//ASN.51852 76347 Performed By: #### U A #### [address] [address] Glucose [Mass/Vol] 90 mg/dL Normal 74 - 99 [place] [facility] Comment on above: Performed By: #### U A #### [address] [address] HCO3 (Bld) [Moles/Vol] 23 mmol/L Normal 21 - 32 [facility] Comment on above: Performed By: #### U A #### [address] [address] Potassium [Moles/Vol] 4.3 mmol/L Normal 3.5 - 5.3 [facility] Comment on above: Result Comment: MILD HEMOLYSIS DETECTED. The result may be falsely elevated due to hemolysis or other interferents. Clinical correlation is recommended. Repeat testing may be considered. Performed By: #### U A #### [address] [address] Protein [Mass/Vol] 7.0 g/dL Normal 6.4 - 8.2 [facility] Comment on above: Performed By: #### U A #### [address] [address] Sodium [Moles/Vol] 137 mmol/L Normal 136 - 145 [facility] Comment on above: Performed By: #### U A #### [address] [address] Urea nitrogen [Mass/Vol] 6 mg/dL Normal 6 - 23 [facility] Comment on above: Performed By: #### U A #### [address] [address] HCG,URINEon 11-24-2022 Beta HCG ( test) Ql (U) Negative Normal Negative [facility] Comment on above: Performed By: #### H CGU #### [address] [address] Provider Note - ED v3on Provider Note - ED v3 Provider Note: Chart Review: HISTORY OF PRESENTING ILLNESS LADY is a 22 year old Female and was seen by me at 24-Nov-2022 14:14 for a chief complaint of pelvic pain . Other complaints include: here last week for ovarian cyst. Today L low pelvic area is worse more pain and now vaginal bleeding(1). Triage Information: Most recent Vital Sign Value Date Temp (F): 98.3 11-24-2022 13:48 Temp (C): 36.8 11-24-2022 13:48 Heart Rate (beats/min): 70 11-24-2022 13:48 Respirations (breaths/min): 20 11-24-2022 13:48 SpO2 (%): 99 11-24-2022 13:48 BP Systolic (mm Hg): 126 11-24-2022 13:48 BP Diastolic (mm Hg): 79 11-24-2022 13:48 PAST MEDICAL HISTORY ALLERGIES/INTOLERANCES : No Known Allergies HEALTH HISTORY: No documented data. OUTPATIENT MEDICATIONS: Home Medications Review Status for Reconciliation: Not Done Med Status: Patient Currently Takes Medications Drug Name: dicyclomine 10 mg oral capsule Instructions: 2 cap(s) orally 3 times a day Drug Name: naproxen 500 mg oral tablet Instructions: 1 tab(s) orally 2 times a day SIGNIFICANT EVENTS: Past Medical History Description:ovarian cyst CRITICAL CARE RESULTS: Recent Lab Results: I have reviewed these laboratory results: Complete Blood Count + Differential 24-Nov-2022 15:01:00 ResultValue White Blood Cell Count 6.5 Red Blood Cell Count 4.98 HGB 13.7 HCT 41.1 MCV 83 MCHC 33.3 PLT 164 RDW-CV 12.4 Neutrophil % 59.2 Immature Granulocytes % 0.3 Lymphocyte % 27.0 Monocyte % 7.8 Eosinophil % 5.2 Basophil % 0.5 Neutrophil Count 3.86 Lymphocyte Count 1.76 Monocyte Count 0.51 Eosinophil Count 0.34 Basophil Count 0.03 Comprehensive Metabolic Panel 24-Nov-2022 15:01:00 ResultValue Glucose, Serum 90 NA 137 K 4.3 CL 108 H Bicarbonate, Serum 23 Anion Gap, Serum 10 BUN 6 CREAT 0.59 GFR Female >90 Calcium, Serum 8.9 ALB 4.1 ALKP 56 T Pro 7.0 T Bili 0.4 Alanine Aminotransferase, Serum 105 H Aspartate Transaminase, Serum 55 H Urinalysis with Culture if Indicated 24-Nov-2022 14:53:00 ResultValue Color, Urine Yellow Reference Range: STRAW,YELLOW Appearance, Urine Clear Specific [place], Urine 1.021 pH, Urine 6.0 Protein, Urine Negative Glucose, Urine Negative Blood, Urine LARGE(3+) A Ketones, Urine Negative Bilirubin, Urine Negative Urobilinogen, Urine <2.0 Nitrite, Urine Negative Leukocyte Esterase, Urine Negative Urine Test 24-Nov-2022 14:53:00 ResultValue HCG, Urine NEGATIVE Urinalysis, Microscopic 24-Nov-2022 14:53:00 ResultValue White Cells 1 Red Blood Cells 69 A Epithelial Cells, Squamous 1 Mucous 2+ VITAL SIGNS: T PRBP SpO2O2(LPM) %FiO2 Method 24-Nov-2022 13:48:[id number] 9 99 room air, no respiratory support MDM MDM/ED COURSE: Source of Information: Patient. EMR was reviewed for previous records. HPI: This is a 22-year-old female that has been experiencing lower abdominal/pelvic pain for the past week and a half. The patient was originally seen in [place] and was diagnosed with a ruptured ovarian cyst. The patient reported that she had persistent pain and was seen in the emergency room on 11/17. A pelvic exam was performed and showed moderate amount of white discharge in the vaginal vault with negative wet prep. An ultrasound was performed and noted no adnexal masses. There was no evidence to suggest an ovarian torsion. was negative. The patient reports that she was just coming off of control. The patient states that the pain has waxed and waned and improved slightly. She developed uterine bleeding at 1 PM today. She states that it is heavier than her normal menses. She is not having any associated nausea or vomiting. She denies any fevers or cold-like symptoms. She reports normal urine and bowel function. She reports that the pain is more intense on the left side. Been taking naproxen and Tylenol at home for pain. ROS: A complete review of systems was reviewed and normal unless otherwise stated in HPI. PMH: as noted PSH: Reviewed and not pertinent to chief complaint unless stated in HPI Fam: Reviewed and not pertinent to the chief complaint unless stated in HPI Soc: Reviewed and not pertinent to chief complaint unless stated in HPI MEDS: Reviewed in EMR ALLERGIES: Reviewed in EMR -------- (more content not included)... Normal [place] UA MICROSCOPICon 05-05-2023 Mucus Ql (Urine sed) 2+ /LPF Normal [facility] Comment on above: Performed By: #### U A #### [address] [address] RBC 69 /HPF Abnormal 0-5 [facility] Comment on above: Performed By: #### U A #### [address] [address] SQUAMOUS EPITH. CELLS 1 /HPF Normal [facility] Comment on above: Performed By: #### U A #### [address] [address] WBC 1 /HPF Normal 0-5 [facility] Comment on above: Performed By: #### U A #### [address] [address] URINALYSIS WITH CULTURE IF I NDICATEDon 11-24-2022 Appearance (U) Canceled Normal [place] Comment on above: Order Comment: TEST URINALYSIS WITH CULTURE IF INDICATED WAS CANCELLED, 11/24/2022 17:35 DUPLICATE ORDER. Performed By: #### U ARFX #### [address] [address] ASCORBIC ACID Canceled Normal [place]/[facility] Comment on above: Order Comment: TEST URINALYSIS WITH CULTURE IF INDICATED WAS CANCELLED, 11/24/2022 17:35 DUPLICATE ORDER. Result Comment: Conc entrations > = 20 mg/dL of ascorbic acid can be expected to cause strong interference in the reactions testing for glucose, nitrite and blood. It is recommended to discontinue Vitamin C administration and retest in 10 hours. Performed By: #### U ARFX #### [address] [address] Bilirubin Ql (U) Canceled Normal [facility] Comment on above: Order Comment: TEST URINALYSIS WITH CULTURE IF INDICATED WAS CANCELLED, 11/24/2022 17:35 DUPLICATE ORDER. Performed By: #### U ARFX #### [address] [place] [address] Color (U) Canceled Normal [place] Comment on above: Order Comment: TEST URINALYSIS WITH CULTURE IF INDICATED WAS CANCELLED, 11/24/2022 17:35 DUPLICATE ORDER. Performed By: #### U ARFX #### [address] [address] Glucose Ql (U) Canceled Normal [place]/[facility] Comment on above: Order Comment: TEST URINALYSIS WITH CULTURE IF INDICATED WAS CANCELLED, 11/24/2022 17:35 DUPLICATE ORDER. Performed By: #### U ARFX #### [address] [address] Hemoglobin Ql (U) Canceled Normal [facility] Comment on above: Order Comment: TEST URINALYSIS WITH CULTURE IF INDICATED WAS CANCELLED, 11/24/2022 17:35 DUPLICATE ORDER. Performed By: #### U ARFX #### [address] [address] Ketones Ql (U) Canceled Normal [place]/[facility] Comment on above: Order Comment: TEST URINALYSIS WITH CULTURE IF INDICATED WAS CANCELLED, 11/24/2022 17:35 DUPLICATE ORDER. Performed By: #### U ARFX #### [address] [address] Leukocyte esterase Test strip Ql (U) Canceled Normal [facility] Comment on above: Order Comment: TEST URINALYSIS WITH CULTURE IF INDICATED WAS CANCELLED, 11/24/2022 17:35 DUPLICATE ORDER. Performed By: #### U ARFX #### [address] [address] Nitrite Ql (U) Canceled Normal [place]/[facility] Comment on above: Order Comment: TEST URINALYSIS WITH CULTURE IF INDICATED WAS CANCELLED, 11/24/2022 17:35 DUPLICATE ORDER. Performed By: #### U ARFX #### [address] [address] pH Canceled Normal [place]/[facility] Comment on above: Order Comment: TEST URINALYSIS WITH CULTURE IF INDICATED WAS CANCELLED, 11/24/2022 17:35 DUPLICATE ORDER. Performed By: #### U ARFX #### [address] [address] Protein Ql (U) Canceled Normal [place]/[facility] Comment on above: Order Comment: TEST URINALYSIS WITH CULTURE IF INDICATED WAS CANCELLED, 11/24/2022 17:35 DUPLICATE ORDER. Performed By: #### U ARFX #### [address] [address] Specific gravity (U) [Rel density] Canceled Normal [place] Comment on above: Order Comment: TEST URINALYSIS WITH CULTURE IF INDICATED WAS CANCELLED, 11/24/2022 17:35 DUPLICATE ORDER. Performed By: #### U ARFX #### [address] [address] UROBILINOGEN Canceled Normal [place]/[facility] Comment on above: Order Comment: TEST URINALYSIS WITH CULTURE IF INDICATED WAS CANCELLED, 11/24/2022 17:35 DUPLICATE ORDER. Performed By: #### U ARFX #### [address] [address] Appearance (U) Clear Normal CLEAR [place]/[facility] Comment on above: Performed By: #### U ARFX #### [address] [address] Bilirubin Ql (U) Negative Normal NEGATIVE [place] [facility] Comment on above: Performed By: #### U ARFX #### [address] [address] Color (U) Yellow Normal STRAW,YELLOW [place]/[facility] Comment on above: Performed By: #### U ARFX #### [address] [address] Glucose Ql (U) Negative Normal NEGATIVE [place]/[facility] Comment on above: Performed By: #### U ARFX #### [address] [address] Hemoglobin Ql (U) LARGE(3+) Abnormal NEGATIVE [facility] Comment on above: Performed By: #### U ARFX #### [address] [address] Ketones Ql (U) Negative Normal NEGATIVE [facility] Comment on above: Performed By: #### U ARFX #### [address] [address] Leukocyte esterase Test strip Ql (U) Negative Normal NEGATIVE [facility] Comment on above: Performed By: #### U ARFX #### [address] [address] Nitrite Ql (U) Negative Normal NEGATIVE [facility] Comment on above: Performed By: #### U ARFX #### [address] [address] pH (U) 6.0 [pH] Normal 5.0 - 8.0 [facility] Comment on above: Performed By: #### U ARFX #### [address] [address] Protein Ql (U) Negative Normal NEGATIVE [facility] Comment on above: Performed By: #### U ARFX #### [address] [address] Specific gravity (U) [Rel density] 1.021 Normal 1.005 - 1.035 [facility] Comment on above: Performed By: #### U ARFX #### [address] [address] Urobilinogen (U) [Mass/Vol] mg/dL Normal 0.0 - 1.9 [facility] Comment on above: Performed By: #### U ARFX #### [address] [address] GC + CHLAMYDIA BY AMPLIFIED DETECTIONon 11-18-2022 CHLAMYDIA TRACH.,AMPLIFIED Negative Normal Negative [facility] Comment on above: Result Comment: The APTIMA Combo 2 assay is FDA-approved for Chlamydia trachomatis and Neisseria gonorrhoeae testing on female endocervical and vaginal swabs, ThinPrep liquid pap samples, male urine samples and urethral swabs. Performance characteristics for Chlamydia trachomatis and Neisseria gonorrhoeae testing on specific nrd-RVR-npsvykxr sample types (female urine samples) have been validated by [facility]. This laboratory is certified by CLIA to perform high complexity testing. Samples from all other sites are not validated for this method. Performed By: #### [facility] #### [facility] [address] [place] [address] N.GONORRHEA,AMPLIFIED Negative Normal Negative [facility] Comment on above: Result Comment: The APTIMA Combo 2 assay is FDA-approved for Chlamydia trachomatis and Neisseria gonorrhoeae testing on female endocervical and vaginal swabs, ThinPrep liquid pap samples, male urine samples and urethral swabs. Performance characteristics for Chlamydia trachomatis and Neisseria gonorrhoeae testing on specific tdg-YDN-sjvavhqm sample types (female urine samples) have been validated by [facility]. This laboratory is certified by CLIA to perform high complexity testing. Samples from all other sites are not validated for this method. Performed By: #### [facility] #### [facility] [address] [place] [address] TRICHOMONAS,NUCLEIC ACID DET ECTIONon 11-18-2022 TRICHOMONAS VAGINALIS Negative Normal Negative Bab[facility] Comment on above: Result Comment: The APTIMA Trichomonas vaginalis assay is FDA-approved for testing on female endocervical swabs, vaginal swabs, and ThinPrep liquid pap samples. Performance characteristics for Trichomonas vaginalis on specific oyv-OTC-tpuxbfht sample types (female and male urine and male urethral swabs) have been validated by [facility]. This laboratory is certified by CLIA to perform high complexity testing. Samples from all other sites are not validated for this method. Performed By: #### U A #### [facility] [address] [place] [id number] WET PREP W/ TRICHOMONAS REFL EX IF NEGon 11-18-2022 CLUE CELLS NONE SEEN Normal [facility] Comment on above: Performed By: #### W ETPX #### [place] [address] COMMENT SEE COMMENT Normal [facility] Comment on above: Result Comment: TRIC HOMONAS WAS NOT SEEN BY WET PREP REFLEXED TO TRICHOMONAS VAGINALIS BY AMPLIFIED DETECTION. Performed By: #### W ETPX #### [place] [address] TRICHOMONAS NONE SEEN Normal Negative [facility] Comment on above: Performed By: #### W ETPX #### [place] [address] WBC 21-50 Normal [facility] Comment on above: Performed By: #### W ETPX #### [place] [address] Yeast LM Ql (Urine sed) NONE SEEN Normal [facility] Comment on above: Performed By: #### W ETPX #### [place] [address] CBC AND DIFFERENTIALon 11-17 % AUTOMATED IMMATURE GRAN 0.2 % Normal 0.0 - 0.9 [facility] Comment on above: Result Comment: Suzan ture Granulocyte Count (IG) includes promyelocytes, myelocytes and metamyelocytes but does not include bands. Percent differential counts (%) should be interpreted in the context of the absolute cell counts (cells/L). Performed By: #### C BCDF #### [place] [address] Basophils (Bld) [#/Vol] 0.03 10*3/uL Normal 0.00 - 0.10 [facility] Comment on above: Performed By: #### C BCDF #### [place] [address] Basophils/100 WBC (Bld) 0.5 % Normal 0.0 - 2.0 [facility] Comment on above: Performed By: #### C BCDF #### [place] [address] Eosinophils (Bld) [#/Vol] 0.51 10*3/uL Normal 0.00 - 0.70 [facility] Comment on above: Performed By: #### C BCDF #### [address] [address] Eosinophils/100 WBC (Bld) 8.1 % Normal 0.0 - 6.0 [facility] Comment on above: Performed By: #### C BCDF #### [address] [address] Erythrocyte distribution width (RBC) [Ratio] 12.3 % Normal 11.5 - 14.5 [facility] Comment on above: Performed By: #### C BCDF #### [address] [address] Hematocrit (Bld) [Volume fraction] 42.7 % Normal 36.0 - 46.0 [facility] Comment on above: Performed By: #### C BCDF #### [address] [address] Hemoglobin (Bld) [Mass/Vol] 14.4 g/dL Normal 12.0 - 16.0 [facility] Comment on above: Performed By: #### C BCDF #### [address] [address] Lymphocytes (Bld) [#/Vol] 2.25 10*3/uL Normal 1.20 - 4.80 [facility] Comment on above: Performed By: #### C BCDF #### [address] [address] Lymphocytes/100 WBC (Bld) 35.5 % Normal 13.0 - 44.0 [facility] Comment on above: Performed By: #### C BCDF #### [address] [address] MCHC (RBC) [Mass/Vol] 33.7 g/dL Normal 32.0 - 36.0 [facility] Comment on above: Performed By: #### C BCDF #### [address] [address] MCV (RBC) [Entitic vol] 81 fL Normal 80 - 100 [facility] Comment on above: Performed By: #### C BCDF #### [address] [address] Monocytes (Bld) [#/Vol] 0.59 10*3/uL Normal 0.10 - 1.00 [facility] Comment on above: Performed By: #### C BCDF #### [address] [address] Monocytes/100 WBC (Bld) 9.3 % Normal 2.0 - 10.0 [facility] Comment on above: Performed By: #### C BCDF #### [address] [address] Neutrophils (Bld) [#/Vol] 2.94 10*3/uL Normal 1.20 - 7.70 [facility] Comment on above: Performed By: #### C BCDF #### [address] [address] Neutrophils/100 WBC (Bld) 46.4 % Normal 40.0 - 80.0 [facility] Comment on above: Performed By: #### C BCDF #### [address] [address] Platelets (Bld) [#/Vol] 263 10*3/uL Normal 150 - 450 [facility] Comment on above: Performed By: #### C BCDF #### [address] [address] RBC 5.25 x10E12/L High 4.00 - 5.20 [place]/[facility] Comment on above: Performed By: #### C BCDF #### [address] [address] WBC (Bld) [#/Vol] 6.3 10*3/uL Normal 4.4 - 11.3 [place] /[facility] Comment on above: Performed By: #### C BCDF #### [address] [address] COMPREHENSIVE PANELon 2022 Albumin [Mass/Vol] 4.2 g/dL Normal 3.4 - 5.0 [facility] Comment on above: Performed By: #### C MP #### [address] [address] ALP [Catalytic activity/Vol] 64 U/L Normal 33 - 110 [facility] Comment on above: Performed By: #### C MP #### [address] [address] ALT [Catalytic activity/Vol] 100 U/L High 7 - 45 [facility] Comment on above: Result Comment: Lisha ents treated with Sulfasalazine may generate falsely decreased results for ALT. Performed By: #### C MP #### [address] [address] Anion gap [Moles/Vol] 13 mmol/L Normal 10 - 20 Babar inson/[facility] Comment on above: Performed By: #### C MP #### [address] [address] AST [Catalytic activity/Vol] 51 U/L High 9 - 39 [facility] Comment on above: Result Comment: MILD HEMOLYSIS DETECTED. The result may be falsely elevated due to hemolysis or other interferents. Clinical correlation is recommended. Repeat testing may be considered. Performed By: #### C MP #### [address] [address] Bilirubin [Mass/Vol] 0.4 mg/dL Normal 0.0 - 1.2 [facility] Comment on above: Performed By: #### C MP #### [address] [address] Calcium [Mass/Vol] 9.2 mg/dL Normal 8.6 - 10.3 [facility] Comment on above: Performed By: #### C MP #### [address] [address] Chloride [Moles/Vol] 105 mmol/L Normal 98 - 107 [facility] Comment on above: Performed By: #### C MP #### [address] [address] Creatinine [Mass/Vol] 0.62 mg/dL Normal 0.50 - 1.05 [facility] Comment on above: Performed By: #### C MP #### [address] [address] eGFR FEMALE >90 Normal >90 [facility] Comment on above: Result Comment: CALC ULATIONS OF ESTIMATED GFR ARE PERFORMED USING THE 2020 CKD-EPI STUDY REFIT EQUATION WITHOUT THE RACE VARIABLE FOR THE IDMS-TRACEABLE CREATININE METHODS. https://jasn.asnjournals.org/content/early//ASN.92701 [address] Performed By: #### C MP #### [address] [address] Glucose [Mass/Vol] 94 mg/dL Normal 74 - 99 [facility] Comment on above: Performed By: #### C MP #### [address] [address] HCO3 (Bld) [Moles/Vol] 22 mmol/L Normal 21 - 32 [facility] Comment on above: Performed By: #### C MP #### [address] [address] Potassium [Moles/Vol] 3.9 mmol/L Normal 3.5 - 5.3 Babar [facility] Comment on above: Result Comment: MILD HEMOLYSIS DETECTED. The result may be falsely elevated due to hemolysis or other interferents. Clinical correlation is recommended. Repeat testing may be considered. Performed By: #### C MP #### [address] [address] Protein [Mass/Vol] 7.1 g/dL Normal 6.4 - 8.2 [facility] Comment on above: Performed By: #### C MP #### [place] [address] Sodium [Moles/Vol] 136 mmol/L Normal 136 - 145 [place]/[facility] Comment on above: Performed By: #### C MP #### [place] [address] Urea nitrogen [Mass/Vol] 13 mg/dL Normal 6 - 23 [place]/[facility] Comment on above: Performed By: #### C MP #### [place] [address] DRUG SCREEN,URINEon 11-18-19 23 AMPHETAMINE SCREEN,U Negative Normal NEGATIVE Sanjeev nson/[facility] Comment on above: Result Comment: CUTO FF LEVEL: 500 NG/ML Cross-reactivity has been reported with high concentrations of the following drugs: buproprion, chloroquine, chlorpromazine, ephedrine, mephentermine, fenfluramine, phentermine, phenylpropanolamine, pseudoephedrine, and propranolol. Performed By: #### U A #### [place] [address] BARBITURATES SCREEN,U Negative Normal NEGATIVE Babar inson/[facility] Comment on above: Result Comment: CUTO FF LEVEL: 200 NG/ML Performed By: #### U A #### [place] [address] BENZODIAZEPINES SCREEN,U Negative Normal NEGATIVE [place]/[facility] Comment on above: Result Comment: CUTO FF LEVEL: 200 NG/ML Performed By: #### U A #### [place] [address] CANNABINOIDS SCREEN,U Negative Normal NEGATIVE Babar inson/[facility] Comment on above: Result Comment: CUTO FF LEVEL: 50 NG/ML Performed By: #### U A #### [place] [address] COCAINE METABOLITE SCREEN,U Negative Normal NEGATIVE [place]/[facility] Comment on above: Result Comment: CUTO FF LEVEL: 150 NG/ML Performed By: #### U A #### [place] [id number] DRUG SCREEN COMMENT SEE BELOW Normal Javier son/[facility] Comment on above: Result Comment: Drug screen results are presumptive and should not be used to assess compliance with prescribed medication. Contact the performing [facility] laboratory to add-on definitive confirmatory testing if clinically indicated. . Toxicology screening results are reported qualitatively. The concentration must be greater than or equal to the cutoff to be reported as positive. The concentration at which the screening test can detect an individual drug or metabolite varies. The absence of expected drug(s) and/or drug metabolite(s) may indicate non-compliance, inappropriate timing of specimen collection relative to drug administration, poor drug absorption, diluted/adulterated urine, or limitations of testing. For medical purposes only; not valid for forensic use. . Interpretive questions should be directed to the laboratory medical directors. Performed By: #### U A #### [place] [address] FENTANYL SCREEN,URINE Negative Normal NEGATIVE Babar inson/[facility] Comment on above: Result Comment: CUTO FF LEVEL: 5 NG/ML Performed By: #### U A #### [place] [address] METHADONE SCREEN,U Negative Normal NEGATIVE [place] /[facility] Comment on above: Result Comment: CUTO FF LEVEL: 150 NG/ML The metabolite E-afwoj-apafofmvkonebg (LAAM) is not detected by this method in concentrations that would be found in the urine of patients on LAAM therapy. Performed By: #### U A #### [place] [address] OPIATES SCREEN,U Negative Normal NEGATIVE [place] /[facility] Comment on above: Result Comment: CUTO FF LEVEL: 300 NG/ML The opiate screen does not detect fentanyl, meperidine, or tramadol. Oxycodone is not consistently detected (refer to Oxycodone Screen, Urine result). Performed By: #### U A #### [place] [address] OXYCODONE SCREEN,U Negative Normal NEGATIVE [place] /[facility] Comment on above: Result Comment: CUTO FF LEVEL: 100 NG/ML This test will accurately detect both oxycodone and oxymorphone. Performed By: #### U A #### [place] [address] PCP SCREEN,U Negative Normal NEGATIVE [place]/[facility] Comment on above: Result Comment: CUTO FF LEVEL: 25 NG/ML Cross-reactivity has been reported with dextromethorphan. Performed By: #### U A #### [place] [address] GC + CHLAMYDIA BY AMPLIFIED DETECTIONon 11-17-2022 Lab Specimen Source Genital vaginal Normal [facility] Comment on above: Performed By: #### G CCHA #### [facility] [address] [place] [address] Performed By: #### W ETPX #### [place] [address] Performed By: #### U A #### [place] [address] HCG,URINEon 11-17-2022 Beta HCG ( test) Ql (U) Negative Normal Negative [facility] Comment on above: Performed By: #### H CGU #### [place] [id number] LACTATEon 11-17-2022 Lactate [Moles/Vol] 1.4 mmol/L Normal 0.4 - 2.0 [facility] Comment on above: Result Comment: Wandy puncture immediately after or during the administration of Metamizole may lead to falsely low results. Testing should be performed immediately prior to Metamizole dosing. Performed By: #### U A #### [place] [address] Provider Note - ED v3on 10-22 Provider Note - ED v3 Provider Note: Chart Review: HISTORY OF PRESENTING ILLNESS LAYD is a 22 year old Female and was seen by me at 17-Nov-2022 21:00 for a chief complaint of (lower abdominal pain. was seen at a hospital in [place] on Sunday dx with a ruptured ovarian cyst. discharged home and is still having a lot of pain.)(1). Triage Information: Most recent Vital Sign Value Date Temp (F): 97.8 11-17-2022 20:23 Temp (C): 36.5 11-17-2022 20:23 Heart Rate (beats/min): 102 11-17-2022 20:23 Respirations (breaths/min): 18 11-17-2022 20:23 SpO2 (%): 97 11-17-2022 20:23 BP Systolic (mm Hg): 126 11-17-2022 20:23 BP Diastolic (mm Hg): 83 11-17-2022 20:23 PAST MEDICAL HISTORY ALLERGIES/INTOLERANCES : No Known Allergies HEALTH HISTORY: No documented data. OUTPATIENT MEDICATIONS: Home Medications Review Status for Reconciliation: Not Done Med Status: Patient Currently Takes Medications Drug Name: dicyclomine 10 mg oral capsule Instructions: 2 cap(s) orally 3 times a day Drug Name: naproxen 500 mg oral tablet Instructions: 1 tab(s) orally 2 times a day SIGNIFICANT EVENTS: Past Medical History Description:ovarian cyst CRITICAL CARE RESULTS: Recent Lab Results: I have reviewed these laboratory results: Wet Prep. w/Reflex to Trich. by Amp Det. 17-Nov-2022 21:52:00 ResultValue Trichomonas NONE SEEN Clue Cell Identification NONE SEEN Yeast Cells NONE SEEN WBC, Wet Prep -50 Comments_ SEE COMMENT TRICHOMONAS WAS NOT SEEN BY WET PREP REFLEXED TO TRICHOMONAS VAGINALIS BY AMPLIFIED DETECTION. Fluid Source Genital vaginal Complete Blood Count + Differential 17-Nov-2022 21:23:00 ResultValue White Blood Cell Count 6.3 Red Blood Cell Count 5.25 H HGB 14.4 HCT 42.7 MCV 81 MCHC 33.7 PLT 263 RDW-CV 12.3 Neutrophil % 46.4 Immature Granulocytes % 0.2 Lymphocyte % 35.5 Monocyte % 9.3 Eosinophil % 8.1 Basophil % 0.5 Neutrophil Count 2.94 Lymphocyte Count 2.25 Monocyte Count 0.59 Eosinophil Count 0.51 Basophil Count 0.03 Comprehensive Metabolic Panel 17-Nov-2022 21:23:00 ResultValue Glucose, Serum 94 NA 136 K 3.9 CL 105 Bicarbonate, Serum 22 Anion Gap, Serum 13 BUN 13 CREAT 0.62 GFR Female >90 Calcium, Serum 9.2 ALB 4.2 ALKP 64 T Pro 7.1 T Bili 0.4 Alanine Aminotransferase, Serum 100 H Aspartate Transaminase, Serum 51 H Drug Screen, Urine 17-Nov-2022 21:05:00 ResultValue Comments. SEE BELOW Drug screen results are presumptive and should not be used to assess compliance with prescribed medication. Contact the performing [facility] laboratory to add-on definitive confirmatory testing if clinically indicated. .Toxicology scre Amphetamine Screen, Urine PRESUMPTIVE NEGATIVE CUTOFF LEVEL: 500 NG/ML Cross-reactivity has been reported with high concentrations of the following drugs: buproprion, chloroquine, chlorpromazine, ephedrine, mephentermine, fenfluramine, phentermine, phenylpropanolamine Barbiturate Screen, Urine PRESUMPTIVE NEGATIVE PRESUMPTIVE NEGATIVE CUTOFF LEVEL: 200 NG/ML Benzodiazepine Screen, Urine PRESUMPTIVE NEGATIVE PRESUMPTIVE NEGATIVE CUTOFF LEVEL: 200 NG/ML Cannabinoid Screen, Urine PRESUMPTIVE NEGATIVE PRESUMPTIVE NEGATIVE CUTOFF LEVEL: 50 NG/ML Cocaine Metabolite Screen, Urine PRESUMPTIVE NEGATIVE PRESUMPTIVE NEGATIVE CUTOFF LEVEL: 150 NG/ML Fentanyl Screen, Urine PRESUMPTIVE NEGATIVE PRESUMPTIVE NEGATIVE CUTOFF LEVEL: 5 NG/ML Methadone Screen, Urine PRESUMPTIVE NEGATIVE CUTOFF LEVEL: 150 NG/ML The metabolite V-xwqaj-mmbktmnuxpqern (LAAM) is not detected by this method in concentrations that would be found in the urine of patients on LAAM therapy. Opiate Screen, Urine PRESUMPTIVE NEGATIVE CUTOFF LEVEL: 300 NG/ML The opiate screen does not detect fentanyl, meperidine, or tramadol. Oxycodone is not consistently detected (refer to Oxycodone Screen, Urine result). Oxycodone Screen, Urine (item) PRESUMPTIVE NEGATIVE CUTOFF LEVEL: 100 NG/ML This test will accurately detect both oxycodone and oxymorphone. PCP Screen, Urine PRESUMPTIVE NEGATIVE CUTOFF LEVEL: 25 NG/ML Cross-reactivity has been reported with dextromethorphan. Urinalysis, Microscopic 17-Nov-2022 21:05:00 ResultValue White Cells 1 Red Blood Cells 13 A Epithelial Cells, Squamous 9 Bacteria, Urine 1+ A Mucous 1+ Amorphous Crystals 1+ Urine Test 17-Nov-2022 21:05:00 ResultValue HCG, Urine NEGATIVE Urinalysis 17-Nov-2022 21:05:00 ResultValue Color, Urine Yellow Reference Range: STRAW,YELLOW Appearance, Urine Clear Specific [place], Urine 1.027 pH, Urine 5.0 Protein, Urine Negative Glucose, Urine Negative Blood, Urine MODERATE(2+) A Ketones, Urine Negative Bilirubin, Urine Negative Urobilinogen, Urine <2.0 Nitrite, Urine Negative Leukocyte Esterase, Urine Negative Lactate, Level 17-Nov-2022 21:00:00 ResultValue Lactate, Level 1.4 Radiology Results: Imp (more content not included)... Normal [place] Triage - EDon 11-17-2022 Triage - ED Quick Triage: Are You no Have You Given In The Last 6 Weeksno Are You Currently Breastfeedingno Chart Review: PRIMARY ASSESSMENT LADY SANDRA's primary assessment is Within Defined Limits. The airway is open and patent. Breathing spontaneous and unlabored with clear breath sounds bilaterally. Circulation is normal with good peripheral pulses. Skin is warm and dry and color is normal for race. ARRIVAL INFORMATION Mode of Arrival: private vehicle CHIEF COMPLAINT LADY SANDRA is a Female patient with a chief complaint of (lower abdominal pain. was seen at a hospital in [place] on Sunday dx with a ruptured ovarian cyst. discharged home and is still having a lot of pain.). Triage Date/Time: 17-Nov-2022 20:23 JENNA: 3V Vital Signs: Temperature: 97.8F ( 36.5C) Blood Pressure: 126/83 Mean: Heart Rate: 102 Respiratory Rate: 18 Pulse Oximetry: 97% on room air, no respiratory support. Height: 5 feet 6.00 inches. 167.6 CM Weight: 171.9 pounds. Calculated 78.0 kg. (stated) Calculated BMI (kg/m2): 27.768 Calculated BSA (m2) 1.91 Randolph Coma Scale: Best Eye Response: (E4) spontaneous Best Motor Response: (M6) obeys commands Best Verbal Response: (V5) oriented Randolph Score: 15 Allergies: no Patient has homicidal thoughts: no Risk Screens Suicide Risk Screen In the Past Month: Have you wished you were or wished you could go to sleep and not wake up no In the Past Month: Have you had any actual thoughts of killing yourself no In Your Lifetime: Have you ever done anything, started to do anything, or prepared to do anything to end your life no Interventions: Jaquez Fall Interventions: LOW INTERVENTIONS: *patient oriented to surroundings and call system, * patient/family falls education completed and documented, *patients fall status communicated during bedside handoff, *whiteboard updated, *mode of toileting discussed with patient, *bed in low position with brakes locked, *call light in reach, * non-skid footwear TRAVEL HISTORY Travel History Coronavirus Screening: no exposure or symptoms Travel Exposure History: NO travel to International locations in the past 30 days (flew to [place] a couple weeks ago) PAIN Pain Scale Used: REBECCA Past Medical History: Past Medical History Reviewedyes ovarian cyst: Past Medical History, Active Electronic Signatures: Velia Feldman (RN) (Signed 17-Nov-2022 20:28) Entered: Risk Screens, Pain, ABCD, Travel History, Chart Review, Past Medical History Authored: Quick Triage, Risk Screens, Pain, ABCD, Travel History, Chart Review, Past Medical History Last Updated: 17-Nov-2022 20:28 by Velia Feldman (RN) Normal [facility] UA MICROSCOPICon 11-17-2022 AMORPHOUS CRYSTAL 1+ /HPF [facility] Comment on above: Performed By: #### U AMIC #### [place] [address] BACTERIA 1+ /HPF Abnormal [facility] Comment on above: Performed By: #### U AMIC #### [address] [address] Mucus Ql (Urine sed) 1+ /LPF [facility] on above: Performed By: #### U AMIC #### [address] [address] RBC 13 /HPF Abnormal 0-5 [facility] Comment on above: Performed By: #### U AMIC #### [address] [address] SQUAMOUS EPITH. CELLS 9 /HPF [facility] on above: Performed By: #### U AMIC #### [address] [address] WBC 1 /HPF Normal 0-5 [facility] Comment on above: Performed By: #### U AMIC #### [address] [address] URINALYSISon 11-17-2022 Appearance (U) Clear Normal CLEAR [place]/[facility] Comment on above: Performed By: #### U A #### [address] [address] Bilirubin Ql (U) Negative Normal NEGATIVE [place] [facility] Comment on above: Performed By: #### U A #### [address] [address] Color (U) Yellow Normal STRAW,YELLOW [facility] Comment on above: Performed By: #### U A #### [address] [address] Glucose Ql (U) Negative Normal NEGATIVE [facility]/[facility] Comment on above: Performed By: #### U A #### [address] [address] Hemoglobin Ql (U) MODERATE(2+) Abnormal NEGATIVE Javier son/[facility] Comment on above: Performed By: #### U A #### [address] [address] Ketones Ql (U) Negative Normal NEGATIVE [facility] Comment on above: Performed By: #### U A #### [address] [address] Leukocyte esterase Test strip Ql (U) Negative Normal NEGATIVE [facility] Comment on above: Performed By: #### U A #### [address] [address] Nitrite Ql (U) Negative Normal NEGATIVE [place]/P [facility]o [facility] Comment on above: Performed By: #### U A #### [address] [address] pH (U) 5.0 [pH] Normal 5.0 - 8.0 [place] Comment on above: Performed By: #### U A #### [address] [address] Protein Ql (U) Negative Normal NEGATIVE [place]/P [facility] Comment on above: Performed By: #### U A #### [facility] [address] [place] [address] Specific gravity (U) [Rel density] 1.027 Normal 1.005 - 1.035 [facility] Comment on above: Performed By: #### U A #### [facility] [address] [place] [address] Urobilinogen (U) [Mass/Vol] mg/dL Normal 0.0 - 1.9 [facility] Comment on above: Performed By: #### U A #### [facility] [address] [place] [address] CT ABDOMEN PELVIS WITH IV CO NTRAST ONLYon 11-16-2022 CT ABDOMEN PELVIS WITH IV CONTRAST ONLY EXAMINATION: CT OF THE ABDOMEN AND PELVIS WITH CONTRAST 11/15/2022 TECHNIQUE: CT of the abdomen and pelvis was performed with the administration of intravenous contrast. Multiplanar reformatted images are provided for review. Dose modulation, iterative reconstruction, and/or weight based adjustment of the mA/kV was utilized to reduce the radiation dose to as low as reasonably achievable. COMPARISON: None. HISTORY: ORDERING SYSTEM PROVIDED HISTORY: Nausea/vomiting; RLQ abdominal pain (Age >= 14y); RLQ abd pain; TECHNOLOGIST PROVIDED HISTORY: Illness/Other Acuity: Acute Reason for Exam: Nausea/vomiting, RLQ abdominal pain (Age >= 14y), RLQ abd pain Type of Encounter: Initial Additional signs and symptoms: Nausea/vomiting, RLQ abdominal pain (Age >= 14y), RLQ abd pain FINDINGS: Lower Chest: Bibasilar dependent changes are present. No pleural effusion or pneumothorax is noted. Organs: A mild degree of diffuse hepatic steatosis is present. Hepatomegaly is present with a sagittal length of 18.2 cm. The gallbladder, pancreas, spleen, adrenal glands, and kidneys demonstrate no acute abnormality. GI/Bowel: A small hiatal hernia is present. Small bowel appears normal without evidence of obstruction. The appendix is normal. No focal inflammatory change or wall thickening is present involving the large bowel. Sigmoid diverticulosis is present without evidence of diverticulitis. Pelvis: Urinary bladder is incompletely distended. Uterus is normal in size. In involuting cyst or corpus luteum cyst is present on the left ovary, measuring 2.2 cm. Small amount of free fluid is present within the right adnexal region and cul-de-sac, likely related to recent ovulation. Peritoneum/Retroperito neum: No aneurysm formation is noted. No free air is present in the abdomen or pelvis. No pathological adenopathy is present. Bones/Soft Tissues: A small umbilical hernia is present containing fat. No acute osseous abnormality is present. A diffuse disc bulge is present at the L4-L5 disc level, without significant central spinal stenosis. IMPRESSION: 1. Normal appendix 2. 2.2 cm corpus luteum cyst or involuting cyst, left ovary. No routine follow-up imaging is recommended 3. Small amount of free fluid noted within the cul-de-sac, and right adnexal region, likely related to recent ovulation 4. Mild degree of diffuse hepatic steatosis and hepatomegaly Workstation ID: [id number] Dictated by: GINA BENJAMIN on [facility] Nov 16, 2022 12:26:07 AM EDT Transcribed by: GINA BENJAMIN on [facility] Nov 16, 2022 12:26:07 AM EDT Finalized by: GINA BENJAMIN on [facility] Nov 16, 2022 12:26:07 AM EDT [facility] Comment on above: Order Comment: Injur y/Trauma or Illness?:Illness/Other How long have you had these symptoms (acute/chronic)?:Acute Reason for exam?:Nausea/vomiting, RLQ abdominal pain (Age >= 14y), RLQ abd pain Type of Exam?:Initial Additional signs and symptoms?:Nausea/vomiting, RLQ abdominal pain (Age >= 14y), RLQ abd pain HCG ( test) Ql (U)o n 04-07-2022 Preg Test, Ur Negative Normal Negative [facility] Comment on above: Performed By: #### 2 106-3 #### [facility] [address] [place] [address] HCG ( test) Ql (U)O rdered By: Tricia Yeboah on 04-07-2022 Interpretation and review of laboratory results [facility] qualitative, urineOrdere d By: Tricia Yeboah on 04-07-2022 HCG ( test) Ql (U) Negative Negative [facility] - Specimen inform ationon 04-07-2022 Specimen source Nom (Unsp spec) Hold for add-ons. [facility] Comment on above: Auto resulted. No Panel Informationon 04-07 [facility] No acute osseous findings of the LEFT hip, sacrum or coccyx. -------- FINAL REPORT -------- Dictated By: Lex Salazar Dictated Date: 04/07/2022 15:18 Assigned Physician: Lex Salazar Reviewed and Electronically Signed By: Lex Salazar Signed Date: 04/07/2022 15:19 Workstation ID: [id number] Transcribed By: Self Edit Transcribed Date: 04/07/2022 15:18 RELEASEIFCRIBE EXAMINATION TYPE: XR HIP 2-3 VIEWS LEFT, XR SACRUM COCCYX 2+ VIEWS DATE OF EXAM : 04/07/2022 3:07 PM HISTORY: pain COMPARISON: NONE FINDINGS: LEFT hip: AP and frog-leg lateral views. No acute fracture, dislocation nor femoral head collapse is demonstrated. Joint spaces of both hips appear relatively maintained, given nonweightbearing technique. Subcentimeter sclerotic focus in the RIGHT ischium, nonspecific, but likely a small bone island. Sacrum and coccyx: AP and lateral views. No acute fracture or displacement of the sacrum or coccyx is demonstrated. Sacral arcs appear maintained. No diastases of the pubic symphysis or sacroiliac joints is demonstrated. POWERSCRIBE Lex Salazar MD - 04/07/2022 EXAMINATION TYPE: XR HIP 2-3 VIEWS LEFT, XR SACRUM COCCYX 2+ VIEWS DATE OF EXAM : 04/07/2022 3:07 PM HISTORY: pain COMPARISON: NONE FINDINGS: LEFT hip: AP and frog-leg lateral views. No acute fracture, dislocation nor femoral head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 [address], [place] [address] pH (U) 8.0 [pH] High 5.5-7.5 [facility] Comment on above: Performed By: #### U AR ####[facility], [place] [address]Xbakpnt Director - Leatha Louis [id number] for [facility], [place] [address] Protein (U) [Mass/Vol] Negative Normal NEGATIVE [facility] Comment on above: Performed By: #### U AR ####[facility], [place] [address]Hdzpbmz Director - Leatha Louis [id number] for [facility], [place] [address] RBC (U) [#/Vol] Negative Normal NEGATIVE [facility] Comment on above: Performed By: #### U AR ####[place] [address] Director - [facility] CenterDILLON [id number] for [address] [address] RBC LM.HPF (Urine sed) [#/Area] Normal 0-4 [facility] Comment on above: Performed By: #### U AR ####[place] [address] Director - [facility] StationDILLON [id number] for [address] [address] Specific gravity (U) [Rel density] 1.021 Normal 1.010-1.035 [facility] Comment on above: Performed By: #### U AR ####[place] [address] Director - [facility] StationDILLON [id number] for [address] [address] Urobilinogen Qn (U) 1.0 {Ruthann'U}/dL Normal <=1.0 [facility] Comment on above: Result Comment: 1.0 E.U./dL Performed By: #### U AR ####[place] [address] Director - [facility] [id number] for [address] [address] WBC LM.HPF (Urine sed) [#/Area] Normal 0-5 [facility] Comment on above: Performed By: #### U AR ####[place] [address] Director - [facility] [id number] for [address] [address] ER NOTEon 2019 ER NOTE TRIAGE (SunFeb 27, 2019 00:02 JLM) TRIAGE NOTES: PT LEFT W/O BEING SEEN. PATIENT: NAME: Lady Sandra, AGE: 19, GENDER: female, : Sun2000, TIME OF GREET: SunFeb 26, 2019 23:26, PREFERRED LANGUAGE: Argentine, SSN: [id number], Zip Code: [address], PHONE: [phone], , , Family MD: DOCTOR, NON-STAFF, MRSA/VRE - VERIFY: No, P/A DRUG SCREEN RQ?: NO. ADMISSION: URGENCY: UNKNOWN, DEPT: Emergency, BED: WAITING. COMPLAINT: Pt Mo Sts Chest Pain Fast Hr. ASSESSMENT: Triage assessment performed. PROVIDERS: TRIAGE NURSE: Keo Potter RN. PREVIOUS VISIT ALLERGIES: NKDA. KNOWN ALLERGIES NKDA (Unconfirmed) CURRENT MEDICATIONS No recorded medications PAST MEDICAL HISTORY (SunFeb 27, 2019 00:02 JLM) MEDICAL HISTORY: Past medical history includes pulmonary disease, asthma. Past medical history is not significant. Notes: asthma. SURGICAL HISTORY FEMALE: Patient has no surgical history. Patient has no surgical history. PSYCHIATRIC HISTORY: No previous psychiatric history. No previous psychiatric history. SOCIAL HISTORY: Social History includes lives with mom and dad. FAMILY HISTORY: Family istory is not significant. NOTES: Nursing records reviewed, Agree with nursing records, Medication list reviewed. Nursing records reviewed, Agree with nursing records, Medication list reviewed. EVENTS TRANSFER: Triage to Emergency Waiting. (SunFeb 27, 2019 00:02 JLM) Removed from Emergency Waiting. (SunFeb 27, 2019 00:08 JLM) NURSING PROCEDURE: DISCHARGE NOTE (SunFeb 27, 2019 00:03 JLM) DISCHARGE: Patient left without being seen, ambulating without assistance, Notes: PT MOM LEFT WITH PT WITHOUT BEING SEEN. NURSING PROCEDURE: NURSE NOTES (SunFeb 27, 2019 00:05 JLM) NURSES NOTES: Notes: AT 2345 HR-73 RESPS 16 SP02 @98%. NAD NOTED PT WAS ON HER PHONE AT THIS TIME. PT MOTHER STATES THAT SHE WANTS US TO TAKE HER SERIOUSLY. THIS NURSE EXPLAINED THAT WE TAKE ALL PT SERIOUSLY. PT MOM STATES THAT SHE BELEIVES THAT SHE HEARD THIS NURSE STATE THAT PT HAS ANXIETY. THIS NURSE EXPLAINED TO PT MOM THAT I WAS SORRY BUT I DIDNT SAY ANYTHING ABOUT ANXIETY. WAQAR (SunFeb 26, 2019 23:28 JL) GREET: Greet: SunFeb 26, 2019 23:28. NOTES: Patient arrived ambulatory, Notes: PT AMBULATED TO [facility] DESK WITHOUT DIFFICULTY. DIAGNOSIS (SunFeb 27, 2019 00:08 JLM) FINAL: PRIMARY: AMA. DISPOSITION (SunFeb 27, 2019 00:08 JLM) PATIENT: Disposition: 07 Left Against Medical Advice, Condition: UNDETERMINED, Patient left the department. PRESCRIPTION No recorded prescriptions ADMIN (SunFeb 27, 2019 12:23 JLM) DIGITAL SIGNATURE: JOSHUA Potter, Keo Hopson Cotton: JLM=JOSHUA Potter, Keo Hopson [facility] BMPon 12-23-2018 Anion gap molar conc 15 mmol/L 10 - 20 mmol/L [facility] Calcium mass conc 9.1 mg/dL 8.4 - 10.2 mg/dL [facility] Chloride molar conc 104 mmol/L 98 - 108 mmol/L [facility] Creatinine mass conc 0.70 mg/dL 0.5 - 1 mg/dL [facility] GFR/1.73 sq M predicted among non-blacks MDRD vol rate/area (S/P/Bld) The eGFR should be used for monitoring renal function only and not for medication dosing. [facility] Glucose mass conc 129 mg/dL High 65 - 99 mg/dL [facility] HCO3 molar conc 24 mmol/L 21 - 32 mmol/L [facility] Interpretation and review of laboratory results Abnormal [facility] Potassium molar conc 4.1 mmol/L 3.5 - 5 .1 mmol/L [facility] Sodium molar conc 139 mmol/L 135 - 145 mmol/L [facility] Urea nitrogen mass conc 7 mg/dL Low 8 - 25 mg/dL [facility] Urea nitrogen/Creatinine mass ratio 10.0 mg/mg [facility] CBC WITH AUTO DIFFERENTIALon 12-23-2018 Basophils #/vol (Bld) 0.03 10*3/uL [facility] Basophils/100 WBC (Bld) 0.5 % [facility] Eosinophils #/vol (Bld) 0.28 10*3/uL [facility] Eosinophils/100 WBC (Bld) 4.2 % [facility] Erythrocyte distribution width Entitic volume (RBC) 12.8 % 11.6 - 14.8 % [facility] Hematocrit Volume Fraction (Bld) 41.2 % 36 - 46 % [facility] Hemoglobin mass conc (Bld) 13.8 g/dL 12 - 16 g/dL [facility] Immature granulocytes #/vol (Bld) 0.03 10*3/uL [facility] Immature granulocytes/100 WBC (Bld) 0.50 % [facility] Comment on above: The IG parameter is the percentage of metamyelocytes, myelocytes, and promyelocytes. Interpretation and review of laboratory results Abnormal [facility] Lymphocytes #/vol (Bld) 1.04 10*3/uL Low [facility] Lymphocytes/100 WBC (Bld) 15.6 % [facility] MCH Entitic mass (RBC) 26.1 pg 25 - 35 pg [facility] MCHC mass conc (RBC) 33.5 g/dL 31 - 37 g/dL [facility] MCV Entitic volume (RBC) 78.0 fL 78 - 102 fL [facility] Monocytes #/vol (Bld) 0.56 10*3/uL [facility] Monocytes/100 WBC (Bld) 8.4 % [facility] Neutrophils #/vol (Bld) 4.71 10*3/uL [facility] Neutrophils/100 WBC (Bld) 70.8 % [facility] Nucleated RBC #/vol (Bld) 0.00 10*3/uL [facility] Nucleated RBC/100 WBC Ratio (Bld) 0.0 % [facility] Platelet mean volume Entitic volume (Bld) 10.0 fL 9 - 15.5 fL [facility] Platelets #/vol (Bld) 279 10*3/uL [facility] RBC #/vol (Bld) 5.28 10*6/uL High [facility] WBC #/vol (Bld) 6.65 10*3/uL [facility] CT PULMONARY ARTERIESon No evidence of pulmonary embolism or other acute process in the chest. Workstation ID: [id number] [facility] EXAMINATION: CTA OF THE CHEST 12/23/2018 TECHNIQUE: CTA of the chest was performed after the administration of intravenous contrast. Multiplanar reformatted images are provided for review. MIP images are provided for review. COMPARISON: None. HISTORY: ORDERING SYSTEM PROVIDED HISTORY: dyspnea, pleuritic chest pain; TECHNOLOGIST PROVIDED HISTORY: Reason for Exam: dyspnea Illness/Other Acuity: Acute Type of Encounter: Initial Additional signs and symptoms: pleuritic chest pain FINDINGS: Pulmonary Arteries: Pulmonary arteries are adequately opacified for evaluation. No evidence of intraluminal filling defect to suggest pulmonary embolism. Main pulmonary artery is normal in caliber. Mediastinum: No evidence of mediastinal lymphadenopathy. The heart and pericardium demonstrate no acute abnormality. There is no acute abnormality of the thoracic aorta. Lungs/pleura: The lungs are without acute process. No focal consolidation or pulmonary edema. No evidence of pleural effusion or pneumothorax. Upper Abdomen: Limited images of the upper abdomen are unremarkable. Soft Tissues/Bones: No acute bone or soft tissue abnormality. [facility] Interface, Rad In Fu ji Speechq - 12/23/2018 7:08 PM EDT EXAMINATION: CTA OF THE CHEST 12/23/2018 TECHNIQUE: CTA of the chest was performed after the administration of intravenous contrast. Multiplanar reformatted images are provided for review. MIP images are provided for review. COMPARISON: None. HISTORY: ORDERING SYSTEM PROVIDED HISTORY: dyspnea, pleuritic chest pain; TECHNOLOGIST PROVIDED HISTORY: Reason for Exam: dyspnea Illness/Other Acuity: Acute Type of Encounter: Initial Additional signs and symptoms: pleuritic chest pain FINDINGS: Pulmonary Arteries: Pulmonary arteries are adequately opacified for evaluation. No evidence of intraluminal filling defect to suggest pulmonary embolism. Main pulmonary artery is normal in caliber. Mediastinum: No evidence of mediastinal lymphadenopathy. The heart and pericardium demonstrate no acute abnormality. There is no acute abnormality of the thoracic aorta. Lungs/pleura: The lungs are without acute process. No focal consolidation or pulmonary edema. No evidence of pleural effusion or pneumothorax. Upper Abdomen: Limited images of the upper abdomen are unremarkable. Soft Tissues/Bones: No acute bone or soft tissue abnormality. IMPRESSION: No evidence of pulmonary embolism or other acute process in the chest. Workstation ID: [id number] [facility] D-DIMER, QUANTITATIVEon Fibrin D-dimer FEU mass conc (PPP) 0.54 High 0.27 - 0.49 mcg/mL FEU [facility] Interpretation and review of laboratory results Abnormal [facility] This normal referenc e range has been established for adults ( greater than or equal to 18 years old). The normal range for children and infants may differ from the adult normal range. A D-dimer concentration of <0.5 micrograms per milliliter FEU is considered a low probability for pulmonary embolus (PE) and deep venous thrombosis (DVT). Results of this test should always be interpreted in conjunction with the patient's medical history,clinical presentation, and other findings. Clinical diagnosis should not be based on the results of the D-dimer alone. [facility] ECG 12-LEADon 12-23-2018 Interpretation and review of laboratory results Abnormal [facility] Rafaela Loja MD 12/23/2018 6:12 PM EKG 12-lead Date/Time: 12/23/2018 6:11 PM Performed by: Rafaela Loja MD Authorized by: Sherice Marte PA-C Interpreted by ED attending physician Rhythm: sinus rhythm and sinus tachycardia BPM: 115 Conduction: conduction normal ST Segments: ST segments normal T Waves: T waves normal Other findings: JOHNY Clinical impression: abnormal ECG and sinus tachycardia [facility] EKGon 12-23-2018 Ordered by an unspecified provider. [facility] POC Venous Blood Gas Panel-P ulmon 12-23-2018 Base excess Calculated molar conc (BldV) 1.2 mmol/L [facility] Breath rate setting Ventilator synchronized intermittent mandatory [facility] Cal[facility].ionized mass conc 4.8 mg/dL 4.5 - 5.3 mg/dL [facility] Carboxyhemoglobin/Hemo globin.total mass fraction (BldA) 1.5 [facility] Comment on above: Reference Ranges: [facility] Non-smokers: <1.5% Smokers: 1.5-5.0% Heavy Smokers: 5.0-9.0% Chloride molar conc 106 mmol/L 98 - 108 mmol/L [facility] CO2 ppres (BldV) 39.0 mm[Hg] Low [facility] Glucose mass conc 128 mg/dL High 65 - 99 mg/dL [facility] HCO3 molar conc (Bld) 25.6 mmol/L 24 - 2 8 mmol/L [facility] Hematocrit Volume Fraction (BldA) 43.0 % 36 - 46 % [facility] Hemoglobin mass conc (Bld) 14.0 g/dL 12 - 16 g/dL [facility] Inhaled oxygen concentration 21 % [facility] Interpretation and review of laboratory results Abnormal [facility] Lactate molar conc 1.5 mmol/L 0.6 - 2 mmol/L [facility] Methemoglobin/Hemoglob in.total mass fraction (BldA) 0.9 % 0 - 2 % [facility] Oxygen ppres (BldV) 27 mm[Hg] [facility] Oxygen saturation in Venous blood 53.4 % [facility] Oxyhemoglobin/Hemoglob in.total mass fraction (BldA) 52.1 % Low 94 - 98 % [facility] pH (BldV) 7.42 [pH] [facility] Potassium molar conc 3.7 mmol/L 3.5 - 5 .1 mmol/L [facility] Sodium molar conc 141 mmol/L 135 - 145 mmol/L [facility] Tidal volume setting Ventilator 0 [facility] EMERG Knee RIGHT w Obliques [id number] 04-14-2018 EMERG Knee RIGHT w Obliques [id number] EXAM: EMERG Knee RIGHT w Obliques [id number] [facility] Department of Radiology LADY SANDRA VISIT: [id number] : 2000 SEX: F DEPT NO: [id number] PATIENT LOCATION: ERWAITING EXAM: EMERG Knee RIGHT w Obliques [id number] 04/14/2018 20:55:00 SIGNS AND SYMPTOMS: COMMENTS?1 PERTINENT SYMPTOMS: PERTINENT SYMPTOMS: R knee injury: hit with softball. Requesting Provider: AUTUMN MAYERS - INDICATIONS: Right knee pain, softball injury. COMPARISON: None. FINDINGS: 4 images were performed of the right knee, including frontal, lateral and bilateral oblique projections. A joint effusion is seen of the suprapatellar pouch. The patellofemoral and tibiofemoral joint spaces are preserved. No fracture is apparent. The bone alignment is intact. IMPRESSION: Joint effusion of the right knee. Performed By: Mainor Zavala 04/14/2018 20:55:00 Signed By: KEO DE LA CRUZ MD 04/14/2018 20:57:00 Normal [facility] ER NOTEon 04-14-2018 ER NOTE TRIAGE (SunApr 14, 2018 20:29 BP7) TRIAGE NOTES: PT WHEELED TO BED 23 WITH COMPLAINTS OF RIGHT KNEE PAIN. (SunApr 14, 2018 20:29 BP7) PATIENT: NAME: Lady Sandra, AGE: 18, GENDER: female, : Sun2000, TIME OF GREET: SunApr 14, 2018 20:18, PREFERRED LANGUAGE: Argentine, SSN: [id number], Zip Code: [address], PHONE: [phone], , , Family MD: DOCTOR, NON-STAFF, MRSA/VRE - VERIFY: No, P/A DRUG SCREEN RQ?: NO. (SunApr 14, 2018 20:29 BP7) KG WEIGHT: 59 (est.). (SunApr 14, 2018 20:34 ASM1) ADMISSION: URGENCY: RN TO ASSESS, DEPT: Emergency, BED: POD2 23. (SunApr 14, 2018 20:29 BP7) COMPLAINT: Pt Sts Rt Knee Pain. (SunApr 14, 2018 20:29 BP7) ASSESSMENT: Triage assessment performed, PT TO ED BED 23 FOR BEDSIDE TRIAGE. PT REPORTING RIGHT KNEE PAIN FOR THE PAST 3 HOURS. PT REPORTS HAVING A SOFTBALL HIT IT AND THEN FELL ON IT. PT REPORTS PAIN WITH ANY MOVEMENT AND WALKING. (SunApr 14, 2018 20:33 ASM1) ABUSE SCREENING: No domestic violence. (SunApr 14, 2018 20:33 ASM1) BH SCREENIN. In the last 30 days have you wished you were or wished you could go to sleep and not wake up? No, 2. In the last 30 days have you had any actual thoughts of killing yourself? No, 6. Have you ever done anything, started to do anything, or prepared to do anything to end your life? No, Patient screens as no Identifiable suicide risk., Do you have thoughts about harming others? No. (SunApr 14, 2018 20:33 ASM1) PROVIDERS: TRIAGE NURSE: Lanie Regan RN. (SunApr 14, 2018 20:29 BP7) PREVIOUS VISIT ALLERGIES: NKDA. (SunApr 14, 2018 20:29 BP7) NKDA. (SunApr 14, 2018 20:33 ASM1) KNOWN ALLERGIES NKDA CURRENT MEDICATIONS (SunApr 14, 2018 20:35 ASM1) None HPI GENERAL (SunApr 14, 2018 22:34 JPL1) CHIEF COMPLAINT: Patient presents for evaluation of 18-year-old female with asthma presents with right knee injury. Around 5:30 PM, patient was hit by a line drive in softball game near lateral right patella. She continued playing the game, but then dove for a ball, landing on her right knee, further worsening pain. Review of systems positive for numbness in right leg. Patient has been unable to walk unassisted since this happened. Patient otherwise normal state of health. HISTORIAN: History provided by patient. SEVERITY: Maximum severity of symptoms moderate, Currently symptoms are moderate. TIME COURSE: Sudden onset of symptoms, Date and time of onset was April 14 around 5:30 PM, There has been no change in the patient's symptoms over time. EXACERBATED BY: Patient's condition exacerbated by nothing. RELIEVED BY: Patient's condition relieved by nothing. ROS (SunApr 14, 2018 22:37 JPL1) CONSTITUTIONAL PED: Negative constitutional review of systems, Historian denies chills, Historian denies fatigue, Historian denies fever, Historian denies lethargy. EYES PED: Negative eye review of systems, Historian denies eye pain, Historian denies eye redness, Historian denies eye discharge. ENT PED: Negative ears, nose, throat review of systems, Historian denies nasal congestion, Historian denies rhinorrhea, Historian denies sore throat. CARDIOVASCULAR PED: Negative cardiovascular review of systems, Historian denies chest pain, Historian denies syncope. RESPIRATORY PED: Negative respiratory review of systems, Historian denies cough, Historian denies shortness of breath, Historian denies stridor, Historian denies wheezing. GI PED: Negative gastrointestinal review of systems, Historian denies abdominal pain, Historian denies appetite changes, Historian denies diarrhea, Historian denies nausea, Historian denies vomiting. GENITOURINARY FEMALE PED: Negative genitourinary review of systems, Historian denies dysuria. MUSCULOSKELETAL PED: Historian reports bony pain, Historian reports joint pain, Historian denies muscle pain. SKIN PED: Negative skin review of systems, Historian denies rash, Historian denies skin lesions. NEUROLOGIC PED: Historian denies dizziness, Historian denies headache, Historian denies weakness, numbness to R knee/leg. HEMO/LYMPHATIC: Normal hematologic/lymphatic system review, Historian denies abnormal blood clotting, Historian denies easy bruising. PAST MEDICAL HISTORY MEDICAL HISTORY: Past medical history includes pulmonary disease, asthma. Past medical history is not significant. (SunApr 14, 2018 20:33 ASM1) Notes: asthma. (SunApr 14, 2018 22:36 JPL1) SURGICAL HISTORY FEMALE: Patient has no surgical history. (SunApr 14, 2018 20:33 ASM1) Patient has no surgical history. (SunApr 14, 2018 22:36 JPL1) PSYCHIATRIC HISTORY: No previous psychiatric history. No previous psychiatric history. (SunApr 14, 2018 20:33 ASM1) SOCIAL HISTORY: Social History includes lives with mom and dad. (SunApr 14, 2018 22:36 JPL1) FAMILY HISTORY: Family istory is not significant. (SunApr 14, 2018 22:36 JPL1) NOTES: Nursing records reviewed, Agree with nursing records, Medication list reviewed. (SunApr 14, 2018 20:33 ASM1) Nursing records reviewed, Agree with nursing records, Medication list reviewed. (SunApr 14, 2018 22:36 JPL1) PHYSICAL EXAM CONSTITUTIONAL PED: Vital signs reviewed, Patient afebrile, alert. well hydrated, No respiratory distress. (SunApr 14, 2018 22:37 JPL1) HEAD PED: Normal head exam, Head exam included findings of head atraumatic. (SunApr 14, 2018 22:37 JPL1) ENT PED: Moist mucus membranes. (SunApr 14, 2018 22:37 JPL1) RESPIRATORY CHEST PED: Respiratory and chest exam normal, Respiratory effort easy and unlabored, with good air exchange, no pain, no respiratory distress, no use of accessory muscles, no retractions, no cyanosis, Breath sounds clear, No wheezing, No rales, No rhonchi, Breath sounds not absent, not diminished. (SunApr 14, 2018 22:37 JPL1) CARDIOVASCULAR PED: Cardiovascular assessment normal, Cardiovascular exam included findings of heart rate regular rate and rhythm, Heart sounds normal, Capillary refill less than 2 seconds, Radial pulses normal. (SunApr 14, 2018 22:37 JPL1) ABDOMEN PED: Abdominal exam normal, Abdominal exam included findings of abdomen nontender, Bowel sounds normal. (SunApr 14, 2018 22:37 JPL1) LOWER EXTREMITY: Right knee with mild swelling and pain a patellar region. Tender to palpation in lateral/inferior patellar region. No lateral patellar laxity. Pain was elicited with extension and flexion of knee. (SunApr 14, 2018 22:38 JPL1) NEURO PED: Neuro exam normal, Neuro exam findings include patient awake and alert, Randolph coma scale 15. (SunApr 14, 2018 22:37 JPL1) SKIN: Skin exam normal, Skin exam included findings of skin warm, dry, and normal in color, no rash. (SunApr 14, 2018 22:37 JPL1) RADIOLOGY INTERPRETATION (SunApr 14, 2018 22:38 JPL1) LOWER EXTREMITIES: Right knee x-ray demonstrating only soft tissue swelling. DOCTOR NOTES (SunApr 14, 2018 22:39 JPL1) NOTES: 18-year-old female presents with right knee injury sustained after being hit with a line drive softball this evening. X-ray negative for bony abnormality. Diagnosis is knee contusion. Discharged home with Corwin wrap, crutches, instructions for supportive care. PATIENT PLAN: The patient will be discharged. ATTENDING (SunApr 14, 2018 22:39 JPL1) ATTENDING: The documented history was done by me personally, The documented physical exam was done by me personally, I have personally seen and examined this patient. I have fully participated in the care of this patient. I have reviewed all pertinent clinical information, including history, physical exam and plan. VITAL SIGNS VITAL SIGNS: Pulse: 76, Resp: 16, Temp: 98, Pain: 7, O2 sat: 98 on (RA). (SunApr 14, 2018 20:34 ASM1) BP: 114/56. (SunApr 14, 2018 20:35 ASM1) BP: 111/79, Pulse: 80, Resp: 20, Pain: 7, O2 sat: 100 on (RA). (SunApr 14, 2018 21:08 SAD4) BP: 114/67, Pulse: 68, Resp: 20, Pain: 7, O2 sat: 98 on (RA). (SunApr 14, 2018 21:55 LMS9) NURSING ASSESSMENT: A SEPSIS SCREENING TOOL (SunApr 14, 2018 20:35 ASM1) SEPSIS SCREENING TOOL: Patient has no infection that is suspected or identified, This patient has been identified as NOT meeting the severe sepsis criteria as defined by the CMS guidelines. NURSING ASSESSMENT: EXTREMITY LOWER (SunApr 14, 2018 20:46 AMV) CONSTITUTIONAL: Patient arrives ambulatory, Gait steady, Patient appears comfortable, Patient cooperative, alert. Oriented to person, place and time, Skin warm, Skin dry, Skin normal in color, Patient complains of RT KNEE PAIN, PT C/O 8/10 RT KNEE PAIN THAT STARTED AROUND 1730 TODAY. STATES THAT SHE WAS HIT IN THE KNEE WITH A SOFTBALL. STATES THAT THE NEXT PLAY SHE FELL ON THE SAME KNEE. PT HAS REDNESS, SWELLING, AND SMALL ABRASION TO RT KNEE. PT STATES SHE HAS LIMITED ROM TO RT KNEE. PT STATES PAIN IS WORSE WITH AMBULATION. PAIN: sharp pain, to the right knee, Onset of pain 1730, on a scale 0-10 patient rates pain as 8. RIGHT LOWER EXTREMITY: Right lower extremity assessment findings include capillary refill less than 2 seconds, Skin color normal, Skin temperature warm, Distal sensation intact, Muscle tone normal, Inspection findings include abrasion, to RT KNEE, Inspection findings include redness, to RT KNEE, Inspection findings include swelling, to RT KNEE. SAFETY: Side rails up, Cart/Stretcher in lowest position, Family at bedside, Call light within reach, Hospital ID band on. NURSING ASSESSMENT: FALL RISK (SunApr 14, 2018 20:46 AMV) JAQUEZ FALL SCALE: History of falling: No, Is there a secondary diagnosis: No, Ambulatory aid: None/BR/WC/Nurse(0), Gait/transferring: Normal/BR/Immobile (0), Mental status: Oriented to own ability (0), Total: 0, No identified risk for fall, Cart in low position and wheels locked, Floor free of tripping/falling hazards, Call light and phone within patient's reach. EVENTS ATTENDING: MD Mayers John P. saw the patient at SunApr 14, 2018 21:21. (SunApr 14, 2018 21:21 JPL1) MD Mayers John P. saw the patient at SunApr 14, 2018 22:39. (SunApr 14, 2018 22:39 JPL1) TRANSFER: Triage to Emergency Emergency Department - Pod 2 23. (SunApr 14, 2018 20:29 BP7) Emergency Emergency Department - Pod 2 23 to RADIOLOGY (Hold Bed). (SunApr 14, 2018 20:41 RSP) Return to Emergency Emergency Department - Pod 2 23. (SunApr 14, 2018 20:54 RSP) Removed from Emergency Emergency Department - Pod 2 23. (SunApr 14, 2018 21:56 LMS9) NURSING PROCEDURE: DISCHARGE NOTE (SunApr 14, 2018 21:56 LMS9) DISCHARGE: Patient discharged to home, ambulating without assistance, family driving, accompanied by parent, Summary of Care printed/ provided, Transition record given to patient, Discharge instructions given to mother, Above person(s) verbalized understanding of discharge instructions and follow-up care, Patient treated and evaluated by physician. TIME: No Barriers to Learning, Explained DCI, Handouts given for DCI, Patient Receptive to DCI, Cooperative with DCI. NURSING PROCEDURE: SPLINTING (SunApr 14, 2018 21:42 SAD4) PATIENT IDENTIFIER: Patient's identity verified by patient stating name, Patient's identity verified by patient stating date, Patient's identity verified by hospital ID bracelet. SPLINTING: Splint applied to, the right knee, by SAD4, 6 inch corwin wrap applied, Immobilized in flexion, Crutches given with instructions, by SAD4, using adult crutches. FOLLOW-UP: After procedure, patient returned demonstration of use of walking aid. NOTES: Patient tolerated procedure well. SAFETY: Side rails up, Cart/Stretcher in lowest position, Family at bedside, Call light within reach, Hospital ID band on. GREET (SunApr 14, 2018 20:19 BP7) GREET: Greet: SunApr 14, 2018 20:19. NOTES: Patient arrive via wheel chair, Notes: PT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 inactivated NA Bright ENGINEER AND GEOLOGIST Work Phone: [facility] 2002 diphtheria, tetanus toxoids and acellular pertussis vaccine NA Bright ENGINEER AND GEOLOGIST Work Phone: [facility] 2002 haemophilus influenz ae type b vaccine, HbOC conjugate NA Bright ENGINEER AND GEOLOGIST Work Phone: [facility] 2002 hepatitis B vaccine, unspecified formulation NA Bright ENGINEER AND GEOLOGIST Work Phone: [facility] 2002 pneumococcal conjuga te vaccine, 7 valent NA Bright ENGINEER AND GEOLOGIST Work Phone: [facility] 2002 poliovirus vaccine, inactivated NA Bright ENGINEER AND GEOLOGIST Work Phone: [facility] Payers Date Payer Category Payer [employer] of [employer] ( and others) PLAN [id number] 2023-Present [phone] [facility] [address] [place] [address] Other [id number] 2022 Unknown [id number] 2021 Blue Cross Blue Shield [place] [facility] [id number] 2021-Present [address] [place] [address] [id number] 2021 Blue Cross Blue Shield [place] [facility] [id number] 2021-Present [address] [place] [address] [id number] 2021 Unknown 2021 Blue Cross Blue [facility] [id number] 2020 Private Health Insurance [facility] [id number] 2020-Present [address] [address] [place] [address] [id number] 2014 Unknown [place] BCBS OUT OF STATE [facility] xxxxxxxxxxxx 2014-Present [id number] 2008 Unknown [id number] 2002 Unknown [id number] 2002 Unknown [id number] .[id number] 2002 Unknown [id number] .[id number] 2002 Unknown [id number] .[id number] 2002 Unknown [id number] .[id number] 2002 Unknown [id number] .[id number] 2002 Unknown [id number] .1069 2002 Unknown [id number] .1069 2002 Unknown [id number] [id number] .159 1977 Unknown [id number] .419 1977 Unknown [id number] .902 1977 Unknown [id number] [id number] .900 1977 Unknown [id number] .900 1977 Unknown [id number] 1959 Unknown [id number] Social History Date Type Detail Facility Start: 12-23-2018 End: 12-21-2023 Tobacco smoking status DEIS Never smoker [facility] Start: 12-23-2018 History SDOH Alcohol Frequency 1 [facility] Start: 2002 Sex Assigned At Not on file [facility] Start: 08-18-2021 End: 12-21-2023 Tobacco use and exposure Smokeless tobacco non-user [facility] Start: 08-15-2021 History SDOH Alcohol Comment NONE [facility] Start: 11-04-2021 End: 11-29-2022 Exposure to SARS-CoV-2 (event) Not sure [facility] Tobacco smoking consumption unknown [facility] Start: 11-29-2022 Alcohol intake Ex-drinker (finding) [facility] Start: 12-23-2018 End: 12-28-2023 Gender identity Not on file [facility] Start: 12-28-2023 Alcohol intake Lifetime non-drinker (finding) [facility] Start: 12-23-2018 End: 12-28-2023 History of Social function [facility] Frequency of Alcohol Consumption Never [facility] Start: 12-23-2018 Gender identity Identifies as female gender (finding) [facility] Start: 11-15-2022 Sexual orientation Heterosexual (finding) [facility] Clinical Notes 08-18-2021 to 03-07-2024 Assessment & Plan Note - Tracy Allen CNP - 12/28/2023 12:46 PM EDTAssessment & Plan Note - Tracy Allen CNP - 12/28/2023 12:46 PM EDT Note Date & Type Note Facility 03-07-2024 Note ED Nursing Discharge Summary Entered On: 03/07/2024 20:24 EDT Performed On: 03/07/2024 20:20 EDT by Sarina Richards RN [place] Information [id number] ED IV's : Discontinue ED IV Site Assessment : Yes, Completed in [facility] ED Vitals Completed : Yes ED Final Assessment Completed : Yes ED Progress Note Completed : Yes Complete all PRN/Pain response forms? : Yes ED Disassociate Patient from Monitor : Yes Updated Depart Time : Yes ED Belongings sent w patient [id number] : Yes Valuables Complete : No Sarina Richards RN - 03/07/2024 20:24 EDT Education Instructions given to : Patient TeachBack Methodology : Explanation, Printed Material Barriers to Learning : None evident Sarina Richards RN - 03/07/2024 20:24 EDT Post-Hospital Education Adult Grid Importance of Follow-Up Visits : Verbalizes understanding Plan of Care : Verbalizes understanding Sarina Richards RN - 03/07/2024 20:24 EDT ED Assistance Summary Assistance Given? : No Sarina Richards RN - 03/07/2024 20:24 EDT [facility] 12-28-2023 Evaluation + Plan note Associated Problem(s): Abnormal uterine bleeding -Intermittent, normally after sexual intercourse. -No pain during sex. -Will refer to SUPERVISOR GARMENT MANUFACTURING. -Patient is also due for her 1st PAP. [facility] 12-28-2023 Miscellaneous Notes Associated Problem(s): Abnormal uterine bleeding -Intermittent, normally after sexual intercourse. -No pain during sex. -Will refer to SUPERVISOR GARMENT MANUFACTURING. -Patient is also due for her 1st PAP. Associated Problem(s): POTS (postural orthostatic tachycardia syndrome) -Doing ok on lopressor although she is still symptomatic at times. -Her baseline BP per patient is 110/70 prior to meds. 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 -Occasional drops in heart rate. -She would like to continue on with this treatment, which I think is appropriate. We will continue to monitor and she was advised to call with any changes. -Hopefully we will see continued improvements with time. -ER precautions discussed. documented in this encounter [facility] 12-28-2023 Evaluation + Plan note Associated Problem(s): POTS (postural orthostatic tachycardia syndrome) -Doing ok on lopressor although she is still symptomatic at times. -Her baseline BP per patient is 110/70 prior to meds. 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 -Occasional drops in heart rate. -She would like to continue on with this treatment, which I think is appropriate. We will continue to monitor and she was advised to call with any changes. -Hopefully we will see continued improvements with time. -ER precautions discussed. [facility] 12-28-2023 Note Patient Name: Lashawn Sandra Date of Service: 12/28/2023 MR #: [id number] : 2000 Reason for Visit: POTS follow up History of Present Illness: Lady Sandra is a very pleasant 23 yo female who presents to [facility] today for a follow up on POTS. Patient has not been having symptoms most of the time. Occasionally she will get palpitations. No chest pain. Sometimes her HR is in the 130s but overall it is for shorter periods and for less time than it had been. She has had 2-3 episodes of bradycardia, down in the 50s. She is symptomatic with this, fatigued. The symptoms do pass with a short period of time. She feels that things in general are getting better and would like to continue on with her treatment. Patient also c/o intermittent vaginal bleeding after sexual intercourse. No painful intercourse. No known STDs. No other vaginal discharge. Same partner for many years. She would like a parking cashier referral. Pt has 2 daughters, 3 yo and 6 months old. She is here today with her significant other who is the girls' father. 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 Prior records including available ER notes, imaging and labwork was reviewed during patient visit. History: Past Medical History: Diagnosis Date Asthma Past Surgical History: Procedure Laterality Date MOUTH SURGERY History reviewed. No pertinent family history. Social History Socioeconomic History Marital status: Single Tobacco Use Smoking status: Never Smokeless tobacco: Never Vaping Use Vaping Use: Never used Substance and Sexual Activity Alcohol use: Never Drug use: Never Patient has no known allergies. Home Medications: Current Outpatient Medications: medroxyPROGESTERone (DEPO-PROVERA) 150 mg/mL injection, Inject 1 mL (150 mg total) into the shoulder, thigh, or buttocks every 3 (three) months ., Disp: , Rfl: metoprolol tartrate (LOPRESSOR) 25 MG tablet, Take 0.5 (one-half) tablet (12.5 mg total) by mouth 2 (two) times a day ., Disp: 30 tablet, Rfl: 2 Review of Systems: The following system(s) were reviewed and pertinent findings noted: Constitutional: Negative except as noted in HPI ENT: Negative except as noted in HPI CV: Negative except as noted in HPI Resp: Negative except as noted in HPI GI: Negative except as noted in HPI Neuro: Negative except as noted in HPI Integumentary: Negative except as noted in HPI MSK: Negative except as noted in HPI Allergic/Immunologic: Negative except as noted in HPI Psych: Negative except as noted in HPI All other ROS negative except as reviewed in the HPI. Labs Reviewed with Patient: ) Lab Results Component Value Date WBC 8.05 12/21/2023 HGB 14.9 12/21/2023 HCT 44.0 12/21/2023 MCV 80.9 12/21/2023 PLT 326 12/21/2023 Lab Results Component Value Date GLUCOSE 133 (H) 12/21/2023 CALCIUM 9.1 12/23/2018 NA 141 12/21/2023 K 3.8 12/21/2023 CL 108 12/21/2023 BUN 9 12/21/2023 CREATININE 0.71 12/21/2023 IMAGING: )EKG 12-lead Result Date: 12/21/2023 Sinus tachycardia Right axis deviation Anteroseptal infarct , age undetermined Abnormal ECG Confirmed by ANITA MD, KARANVIR ([id number]) on 12/21/2023 4:42:20 PM Physical Exam: Vital Signs: )BP (!) 93/58 (BP Location: Right arm, Patient Position: Sitting, BP Cuff Size: Adult) Pulse 70 Temp 99.2 degrees F (37.3 degrees C) (Oral) SpO2 98% Physical Exam Vitals and nursing note reviewed. Constitutional: Appearance: Normal appearance. She is normal weight. Eyes: Extraocular Movements: Extraocular movements intact. Cardiovascular: Rate and Rhythm: Normal rate and regular rhythm. Pulses: Normal pulses. Heart sounds: Normal heart sounds. Pulmonary: Effort: Pulmonary effort is normal. Breath sounds: Normal breath sounds. Abdominal: General: Abdomen is flat. Musculoskeletal: General: Normal range of motion. Cervical back: Normal range of motion. Skin: General: Skin is warm and dry. Neurological: General: No focal deficit present. Mental Status: She is alert and oriented to person, place, and time. Mental status is at baseline. Psychiatric: Mood and Affect: Mood normal. Behavior: Behavior normal. Thought Content: Thought content normal. Judgment: Judgment normal. Assessment & Plan: POTS (postural orthostatic tachycardia syndrome) -Doing ok on lopressor although she is still symptomatic at times. -Her baseline BP per patient is 110/70 prior to meds. 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 -Occasional drops in heart rate. -She would like to continue on with this treatment, which I think is appropriate. We will continue to monitor and she was advised to call with any changes. -Hopefully we will see continued improvements with time. -ER precautions discussed. Abnormal uterine bleeding -Intermittent, normally after sexual intercourse. -No pain during sex. -Will refer to [employer]. -Patient is also due for her 1st PAP. This pat (more content not included)... [facility] 12-28-2023 History of Presen t illness Narrative Patient Name: Lady Sandra Date of Service: 12/28/2023 MR #: [id number] : 2000 Reason for Visit: POTS follow up History of Present Illness: Lady Sandra is a very pleasant 23 yo female who presents to [facility] today for a follow up on POTS. Patient has not been having symptoms most of the time. Occasionally she will get palpitations. No chest pain. Sometimes her HR is in the 130s but overall it is for shorter periods and for less time than it had been. She has had 2-3 episodes of bradycardia, down in the 50s. She is symptomatic with this, fatigued. The symptoms do pass with a short period of time. She feels that things in general are getting better and would like to continue on with her treatment. Patient also c/o intermittent vaginal bleeding after sexual intercourse. No painful intercourse. No known STDs. No other vaginal discharge. Same partner for many years. She would like a parking cashier referral. Pt has 2 daughters, 3 yo and 6 months old. She is here today with her significant other who is the girls' father. 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 Prior records including available ER notes, imaging and labwork was reviewed during patient visit. History: Past Medical History: Diagnosis Date Asthma Past Surgical History: Procedure Laterality Date MOUTH SURGERY History reviewed. No pertinent family history. Social History Socioeconomic History Marital status: Single Tobacco Use Smoking status: Never Smokeless tobacco: Never Vaping Use Vaping Use: Never used Substance and Sexual Activity Alcohol use: Never Drug use: Never Patient has no known allergies. Home Medications: Current Outpatient Medications: medroxyPROGESTERone (DEPO-PROVERA) 150 mg/mL injection, Inject 1 mL (150 mg total) into the shoulder, thigh, or buttocks every 3 (three) months ., Disp: , Rfl: metoprolol tartrate (LOPRESSOR) 25 MG tablet, Take 0.5 (one-half) tablet (12.5 mg total) by mouth 2 (two) times a day ., Disp: 30 tablet, Rfl: 2 Review of Systems: The following system(s) were reviewed and pertinent findings noted: Constitutional: Negative except as noted in HPI ENT: Negative except as noted in HPI CV: Negative except as noted in HPI Resp: Negative except as noted in HPI GI: Negative except as noted in HPI Neuro: Negative except as noted in HPI Integumentary: Negative except as noted in HPI MSK: Negative except as noted in HPI Allergic/Immunologic: Negative except as noted in HPI Psych: Negative except as noted in HPI All other ROS negative except as reviewed in the HPI. Labs Reviewed with Patient: ) Lab Results Component Value Date WBC 8.05 12/21/2023 HGB 14.9 12/21/2023 HCT 44.0 12/21/2023 MCV 80.9 12/21/2023 PLT 326 12/21/2023 Lab Results Component Value Date GLUCOSE 133 (H) 12/21/2023 CALCIUM 9.1 12/23/2018 NA 141 12/21/2023 K 3.8 12/21/2023 CL 108 12/21/2023 BUN 9 12/21/2023 CREATININE 0.71 12/21/2023 IMAGING: )EKG 12-lead Result Date: 12/21/2023 Sinus tachycardia Right axis deviation Anteroseptal infarct , age undetermined Abnormal ECG Confirmed by AIME HOWARD MD ([id number]) on 12/21/2023 4:42:20 PM Physical Exam: Vital Signs: )BP (!) 93/58 (BP Location: Right arm, Patient Position: Sitting, BP Cuff Size: Adult) Pulse 70 Temp 99.2 F (37.3 C) (Oral) SpO2 98% Physical Exam Vitals and nursing note reviewed. Constitutional: Appearance: Normal appearance. She is normal weight. Eyes: Extraocular Movements: Extraocular movements intact. Cardiovascular: Rate and Rhythm: Normal rate and regular rhythm. Pulses: Normal pulses. Heart sounds: Normal heart sounds. Pulmonary: Effort: Pulmonary effort is normal. Breath sounds: Normal breath sounds. Abdominal: General: Abdomen is flat. Musculoskeletal: General: Normal range of motion. Cervical back: Normal range of motion. Skin: General: Skin is warm and dry. Neurological: General: No focal deficit present. Mental Status: She is alert and oriented to person, place, and time. Mental status is at baseline. Psychiatric: Mood and Affect: Mood normal. Behavior: Behavior normal. Thought Content: Thought content normal. Judgment: Judgment normal. Assessment & Plan: POTS (postural orthostatic tachycardia syndrome) -Doing ok on lopressor although she is still symptomatic at times. -Her baseline BP per patient is 110/70 prior to meds. 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 -Occasional drops in heart rate. -She would like to continue on with this treatment, which I think is appropriate. We will continue to monitor and she was advised to call with any changes. -Hopefully we will see continued improvements with time. -ER precautions discussed. Abnormal uterine bleeding -Intermittent, normally after sexual intercourse. -No pain during sex. -Will refer to [employer]. -Patient is also due for her 1st PAP. This patient agrees to keep scheduled appointments with both the [facility] and their Primary Care Provider. If unable to attend scheduled Primary Care Provider appointment it is the patients responsibility to reschedule. ED f/u for chest pain/palpitations Pt denies any chest pain today documented in this encounter [facility] 11-29-2022 History of Presen t illness Narrative Chief Complaint Patient presents with Nasal Congestion Cough,wheezing, sore throat, dyspnea x Sunday.Exposure to covid. History of Present Illness Lady Sandra is a 22 y.o. female who presents with cough, sore throat, dyspnea, and wheezing. Patient states that she is in the [employer] and spent the last week out in the field where it was raining. 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 She denies fevers or chills. Medical History History reviewed. No pertinent past medical history. History reviewed. No pertinent surgical history. Family History Problem Relation Name Age of Onset Cancer Mother Other (hysterectomy) Mother Other (diabetes mellitus) Father Other (cancer in mothers side of the family,) Other Cancer Mother's Sister Cancer Maternal Grandmother No Known Allergies Social History Socioeconomic History Marital status: Single Spouse name: Not on file Number of children: Not on file Years of education: Not on file Highest education level: Not on file Occupational History Not on file Tobacco Use Smoking status: Never Smokeless tobacco: Never Substance and Sexual Activity Alcohol use: Not Currently Comment: NONE Drug use: Never Comment: NO Sexual activity: Not on file Other Topics Concern Not on file Social History Narrative Not on file Review of Systems Constitutional: Positive for chills, fatigue and fever. Negative for activity change, appetite change and diaphoresis. HENT: Positive for rhinorrhea and sore throat. Negative for congestion, dental problem, ear pain, sinus pressure, sinus pain and tinnitus. Eyes: Negative for pain and redness. Respiratory: Positive for cough and wheezing. Negative for chest tightness and shortness of breath. Cardiovascular: Negative for chest pain. Gastrointestinal: Positive for nausea. Negative for abdominal pain and vomiting. Genitourinary: Negative for difficulty urinating. Musculoskeletal: Negative for arthralgias, back pain and myalgias. Skin: Negative for color change and wound. Neurological: Negative for dizziness, syncope and light-headedness. Psychiatric/Behavioral: Negative for confusion. Physical Exam Vitals: 11/29/22 0909 BP: 97/59 Pulse: 76 Resp: 18 Temp: 36.1 C (97 F) SpO2: 98% Physical Exam Vitals and nursing note reviewed. Constitutional: General: She is not in acute distress. Appearance: Normal appearance. She is not toxic-appearing. HENT: Head: Normocephalic. Right Ear: Tympanic membrane, ear canal and external ear normal. There is no impacted cerumen. Left Ear: Tympanic membrane, ear canal and external ear normal. There is no impacted cerumen. Nose: Congestion and rhinorrhea present. Mouth/Throat: Mouth: Mucous membranes are moist. Pharynx: No posterior oropharyngeal erythema. Eyes: General: Right eye: No discharge. Left eye: No discharge. Extraocular Movements: Extraocular movements intact. Cardiovascular: Rate and Rhythm: Normal rate and regular rhythm. Heart sounds: No murmur heard. Pulmonary: Effort: Pulmonary effort is normal. No respiratory distress. Breath sounds: Wheezing present. No rhonchi or rales. Musculoskeletal: Cervical back: Normal range of motion. Skin: Coloration: Skin is not pale. Neurological: Mental Status: She is alert. Gait: Gait normal. Psychiatric: Mood and Affect: Mood normal. Behavior: Behavior normal. No orders to display Urgent Care Course Medical Decision Making: This patient comes in today complaining of cough, congestion, and wheezing. She does have wheezes on exam she was in no distress and vital signs are within normal limits. COVID test was negative. Patient was reassured. Because of her lung exam, patient was placed on Zithromax, ProAir inhaler, and prednisone. She was told to take these as directed and follow-up with her primary care provider if symptoms continue. Diagnosis: Bronchitis (Primary) - azithromycin (Zithromax Z-Juan) 250 mg tablet; Take 2 tablets the first day, then 1 tablet daily for 4 days. Dispense: 6 tablet; Refill: 0 Cough in adult - POC BinaxNOW Rapid SARS-COV2 Antigen - brompheniramine-pseudoephedrine -DM 2-30-10 mg/5 mL syrup; Take 10 mL by mouth 4 (four) times a day if needed for allergies for up to 10 days. Dispense: 118 mL; Refill: 0 - albuterol HFA (PROAIR HFA ; PROVENTIL HFA ; VENTOLIN HFA) 90 mcg/actuation inhaler; Inhale 2 puffs every 4 (four) hours if needed for shortness of breath or wheezing. Dispense: 6.7 g; Refill: 0 - predniSONE (DELTASONE) 50 mg tablet; Take 1 tablet (50 mg total) by mouth 1 (one) time each day for 5 days. Dispense: 5 tablet; Refill: 0 Wheezing documented in this encounter [facility] 04-07-2022 History of Presen t illness Narrative I have reviewed the nurse's note. I introduced myself as the Physician Inspector Line and informed the patient of the supervising physician who is available upon request, Dr. Chiu Patient is a 22-year-old female presenting to the emergency department for left hip pain that has been an ongoing issue since last February. However it has gotten worse the last 2 weeks. Patient has been limping. Of note patient had a sacral fracture in February of last year which was treated conservatively. Ever since patient has always had pain. Patient has increased her activities lately causing increasing pain. No other related concern. Constitutional: [Well-appearing, in no acute distress] EENMT: [Conjunctive pink, sclera non-icteric; no posterior erythema or lesions] Neck: [Supple, non-tender; no lymphadenopathy] Cardiovascular: [Regular rate and rhythm, no S3, S4, or murmur] Respiratory: [Clear to auscultation bilaterally without wheezes or rhonchi. Good, equal air exchange without accessory muscle use] Neurologic: [Awake, alert, answers questions appropriately without slurred speech] I saw this patient briefly and did an MSE in triage. Initial orders were placed in order to facilitate care for the ED provider who will be seeing patient in the main. Please see their notes for detail documentation. EMERGENCY MEDICINE NOTE History of Present illness Chief Complaint: Chief Complaint Patient presents with Hip Pain Left hip. Fx sacrum last year. Been in worsening pain for past two weeks I introduced myself as the Physician Inspector Line and informed the patient of the supervising physician who is available upon request, Dr. Chiu HPI: The patient, Lady Sandra, is a 22 y.o. female presenting with left hip pain. Patient states this has been worsening over the last 2 weeks. She has been more active physically but denies any specific injury. 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 Since then she has been having some intermittent low back pain and hip pain but it is worse here now after being more active. Has not taken anything for the symptoms. Denies fevers, chills, nausea, vomiting, abdominal pain, dysuria, hematuria, leg numbness, leg weakness, saddle anesthesia, urinary or bowel incontinence. Past medical, surgical and family history reviewed Goggles and Mask PPE worn during history, physical, and examinations throughout patients stay in the ED. I have reviewed the nursing notes. Review of Systems Pertinent positive and negative noted in above HPI, otherwise all other systems reviewed and negative. Physical Exam Vitals: 04/07/22 1325 04/07/22 1330 04/07/22 1411 BP: 114/78 Pulse: 93 Resp: 16 Temp: 37 C (98.6 F) TempSrc: Oral SpO2: 97% 97% Weight: 68 kg (150 lb) Height: 1.676 m (66 ) PULSE OX INTERPRETATION: The Pulse ox is 97%, which is normal CONSTITUTIONAL: Well-appearing; well-nourished; Awake, alert and aware, in no acute distress HEAD: Normocephalic; atraumatic EYES: PER, no icterus, no conjunctival injection or pallor RESP: Normal chest excursion with respiration; breath sounds clear and equal bilaterally CARD: Regular rhythm, without murmurs, rub or gallop ABD: Non-distended; non-tender, soft, without rigidity, rebound or guarding, no pulsatile mass CHEST: No pain with palpation SKIN: Normal for age and race; warm and dry without diaphoresis; no apparent lesions EXTREMITIES: Pulses are 2 plus and equal times 4 extremities, no peripheral edema or calf muscle pain or asymmetry NEURO: Alert and oriented X age-appropriate. All 4 extremities without sensory or motor deficit Previous Histories History reviewed. No pertinent past medical history. History reviewed. No pertinent surgical history. Social History Tobacco Use Smoking status: Never Smoker Smokeless tobacco: Never Used Substance Use Topics Drug use: Never Comment: NO Family History Problem Relation Name Age of Onset Cancer Mother Other (hysterectomy) Mother Other (diabetes mellitus) Father Other (cancer in mothers side of the family,) Other Cancer Mother's Sister Cancer Maternal Grandmother No Known Allergies Current Outpatient Medications Medication Instructions naproxen (NAPROSYN) 500 mg, oral, 2 times daily with meals norethindrone-ethinyl estradiol (08/11, ,) 1-20 mg-mcg per tablet 08/11 () 1 mg-20 mcg tablet Take 1 tablet every day by oral route. Results Labs Reviewed HCG QUALITATIVE, URINE - Normal Result Value Preg Test, Ur Negative XR Sacrum Coccyx 2+ Views Final Result No acute osseous findings of the LEFT hip, sacrum or coccyx. -------- FINAL REPORT -------- Dictated By: Lex Salazar Dictated Date: 04/07/2022 15:18 Assigned Physician: Lex Salazar Reviewed and Electronically Signed By: Lex Salazar Signed Date: 04/07/2022 15:19 Workstation ID: [id number] Transcribed By: Self Edit Transcribed Date: 04/07/2022 15:18 XR Hip 2-3 Views Left Final Result No acute osseous findings of the LEFT hip, sacrum or coccyx. -------- FINAL REPORT -------- Dictated By: Lex Salazar Dictated Date: 04/07/2022 15:18 Assigned Physician: Lex Salazar Reviewed and Electronically Signed By: Lex Salazar Signed Date: 04/07/2022 15:19 Workstation ID: [id number] Transcribed By: Self Edit Transcribed Date: 04/07/2022 15:18 The lab results, imaging results and other diagnostic exams were reviewed in EMR. All imaging independently reviewed by myself, and I agree with the radiologist interpretation. ED Course & MDM Past Records: reviewed Medications - No data to display MDM: X-rays negative for any acute process. Neurological intact no deficits otherwise. Most the pain is in the groin and she states it is worse when she runs a few miles. Would be concerned about possible labrum or musculoskeletal etiology. Will be placed on anti-inflammatories and advised follow-up with PCP and given referral to orthopedics as well. Low clinical sufficient for fracture since it was no trauma. Clinical Impressions as of 04/07/22 1543 Acute hip pain, left Disposition Final Diagnosis: 1. Acute hip pain, left Disposition: Discharge At time of Disposition, the patient is in stable condition. This documentation was created by an audible dictation and may contain unintended grammatical/terminology errors ROSEANNA Galvez 04/07/22 1509 ROSEANNA Galvez 04/07/22 1543 documented in this encounter [facility] 12-12-2021 History of Presen t illness Narrative Patient here for TB test documented in this encounter [facility] 12-01-2021 History of Presen t illness Narrative Pt is scheduled for Sunday12/05/21 2nd attempt - lvm to call office to schedule 1st attempt - lvm for pt to call office to schedule pts mom called in upset that no one has called her daughter about the TB test, explained we are still waiting to receive them. Pt lvm requesting information on if she can come and get her TB test on Sunday, when she was here last we did not have any test in. documented in this encounter [facility] 11-14-2021 History of Presen t illness Narrative Subjective Patient ID: Lady Sandra is a 21 y.o. 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 Here for physical exam. No c/os at this time. Review of Systems All other systems reviewed and are negative. There is no problem list on file for this patient. Outpatient Medications Marked as Taking for the 11/14/21 encounter (Office Visit) with Ken Loya NP Medication Sig Dispense Refill norethindrone-ethinyl estradiol (08/11, ,) 1-20 mg-mcg per tablet 08/11 () 1 mg-20 mcg tablet Take 1 tablet every day by oral route. 21 tablet 2 No Known Allergies Objective Visit Vitals BP 110/71 (BP Location: Left arm, Patient Position: Sitting, BP Cuff Size: Adult) Pulse 78 Temp 36.6 C (97.9 F) (Temporal) Resp 16 Physical Exam Vitals and nursing note reviewed. Quality Director present: offered and declined. Constitutional: Appearance: Normal appearance. HENT: Head: Normocephalic and atraumatic. Right Ear: Tympanic membrane, ear canal and external ear normal. Left Ear: Tympanic membrane, ear canal and external ear normal. Mouth/Throat: Mouth: Mucous membranes are moist. Pharynx: Oropharynx is clear. Eyes: Extraocular Movements: Extraocular movements intact. Conjunctiva/sclera: Conjunctivae normal. Pupils: Pupils are equal, round, and reactive to light. Cardiovascular: Rate and Rhythm: Normal rate and regular rhythm. Heart sounds: Normal heart sounds. Pulmonary: Effort: Pulmonary effort is normal. Breath sounds: Normal breath sounds. Abdominal: General: Bowel sounds are normal. Palpations: Abdomen is soft. Musculoskeletal: General: Normal range of motion. Cervical back: Normal range of motion and neck supple. Skin: General: Skin is warm and dry. Capillary Refill: Capillary refill takes less than 2 seconds. Neurological: General: No focal deficit present. Mental Status: She is alert and oriented to person, place, and time. Mental status is at baseline. Psychiatric: Mood and Affect: Mood normal. Behavior: Behavior normal. Thought Content: Thought content normal. Judgment: Judgment normal. Assessment/Plan Encounter for school examination (Primary) - Hepatitis B surface antibody Immunization printed and given to the pt Will call for TB ( out of stock in the office) Hep B titer Follow up if symptoms worsen or fail to improve. Ken Loya NP 11/14/2021 9:58 AM EDT documented in this encounter [facility] 08-18-2021 History of Presen t illness Narrative [place] [facility] scheduling lvm stating the US breast complete Right you sent in can not be done they can not have completed on them they needs to be US breast LIMITED right, can you send in new order then they will call pt to schedule. Also she gave us an order number to type in to bring it up. It is [id number]. documented in this encounter [facility] 08-18-2021 History of Presen t illness Narrative Addended by: Ken LOYA on: 08/18/2021 11:36 AM Modules accepted: Orders Images from the original note were not included. Subjective Patient ID: Lady Sandra is a 21 y.o. female being evaluated today for Med Refill (Lump in right breast. Noticed lump 7 months ago.Top of breast. Pt states all females on moms side have had breast cancer.) Presents for c/o of right breast lump x 7 months. C/O intermittent nipple pain. No discharge or changes in skin. Sts strong family Hx of cancer and breast cancer. Requesting refill of OCP. Does c/o painful intercourse. Discussed referral to OBGYN for eval. Review of Systems Breast: Positive for breast lump or mass. All other systems reviewed and are negative. There is no problem list on file for this patient. Outpatient Medications Marked as Taking for the 08/18/21 encounter (Office Visit) with A sIatu Loya NP Medication Sig Dispense Refill norethindrone-ethinyl estradiol (08/11, ,) 1-20 mg-mcg per tablet 08/11 () 1 mg-20 mcg tablet Take 1 tablet every day by oral route. 21 tablet 2 [DISCONTINUED] norethindrone-ethinyl estradiol (08/11, ,) 1-20 mg-mcg per tablet 08/11 () 1 mg-20 mcg tablet Take 1 tablet every day by oral route. No Known Allergies Objective Visit Vitals BP 121/74 (BP Location: Right arm, Patient Position: Sitting, BP Cuff Size: Adult) Pulse 96 Temp 36.3 C (97.4 F) (Temporal) Resp 16 Physical Exam Vitals and nursing note reviewed. Exam conducted with a brace maker present (Antoinette). Constitutional: Appearance: Normal appearance. HENT: Head: Normocephalic and atraumatic. Eyes: Conjunctiva/sclera: Conjunctivae normal. Pulmonary: Effort: Pulmonary effort is normal. Chest: Musculoskeletal: General: Normal range of motion. Cervical back: Normal range of motion and neck supple. Skin: General: Skin is warm and dry. Capillary Refill: Capillary refill takes less than 2 seconds. Neurological: General: No focal deficit present. Mental Status: She is alert and oriented to person, place, and time. Mental status is at baseline. Psychiatric: Mood and Affect: Mood normal. Behavior: Behavior normal. Thought Content: Thought content normal. Judgment: Judgment normal. Assessment/Plan Breast mass, right (Primary) - MG Mammo Digital Screening bilat; Future - MG Mammo Digital Diagnostic Right; Future control counseling Pain in female genitalia on intercourse - Ambulatory referral to Obstetrics / Gynecology; Future Other orders - norethindrone-ethinyl estradiol (08/11, ,) 1-20 mg-mcg per tablet; 08/11 (21) 1 mg-20 mcg tablet Take 1 tablet every day by oral route. Dispense: 21 tablet; Refill: 2 OCP renewed OCP surveillance Mammo Diagnostic mammo right breast U/S if needed Referral to [employer] for painful intercourse Follow up if symptoms worsen or fail to improve. Ken Loya NP 08/18/2021 9:01 AM EST documented in this encounter [facility] Evaluation note Diagnosis Breast mass, right- Primary Lump or mass in breast control counseling Pain in female genitalia on intercourse Dyspareunia [facility] Diagnosis Breast mass, right- Primary Lump or mass in breast [facility] Diagnosis Encounter for school examination- Primary Health examination of defined subpopulation [facility] Diagnosis Screening-pulmonary TB- Primary Screening examination for pulmonary tuberculosis [facility] Diagnosis Acute hip pain, left- Primary [facility] Diagnosis Bronchitis- Primary Bronchitis, not specified as acute or chronic Cough in adult Wheezing [facility] Diagnosis POTS (postural orthostatic tachycardia syndrome)- Primary Unspecified tachycardia Abnormal uterine bleeding Unspecified disorder of menstruation and other abnormal bleeding from female genital tract documented in this encounter [facility] Discharge instructions* Attachments The following attachments cannot be sent through Care Everywhere. * Hip Pain ([place]) [facility] Attachments The following attachments cannot be sent through Care Everywhere. * Bronchitis ([place]) [facility] * Attachments The following attachments cannot be sent through Care Everywhere. * Asthma Triggers: General Info ([place]) * Nebulizers: General Info ([place]) documented in this encounter Assessments Diagnosis Asthma with acute exacerbation, unspecified asthma severity, unspecified whether persistent- Primary Advance Directives No Advanced Directives Records FoundDocuments on File Type Date Recorded Patient Business Account Executive Expl anation Advance Directives and Evaristo navas Will 12/23/2018 6:29 PM Documents on File Type Date Recorded Patient Business Account Executive Expl anation Power of Card Grader Documents on File Type Date Recorded Patient Business Account Executive Expl anation Power of Card Grader Summary Purpose Family History No Family History Records FoundNo Family History Records FoundNo Family History Records FoundNo Family History Records FoundNo Family History Records FoundNo Family History Records FoundNo Family History Records FoundNo Family History Records Found Reason for Referral Specialty Diagnoses / Procedures Referred By Contac t Referred To Contact Radiology Diagnoses Breast mass, right Procedures US Breast Complete Right Vincenzo, Ken Lunsford NP [address] [place] [address] [facility] Referral ID Status Reason Start Date Expiration Date V isits Requested Visits Authorized [id number] Pending Review 08/18/2021 02/14/2022 1 1 Specialty Diagnoses / Procedures Referred By Contac t Referred To Contact Obstetrics and Gynecology Diagnoses Pain in female genitalia on intercourse Ken Loya NP [address] [place] [address] Referral ID Status Reason Start Date Expiration Date Visits Requested Visits Authorized [id number] Authorized Specialty Services Required 08/18/2021 02/14/2022 1 1 Specialty Diagnoses / Procedures Referred By Contac t Referred To Contact Radiology Diagnoses Breast mass, right Procedures MG Mammo Digital Diagnostic Right Vincenzo, Ken Lunsford NP [address] [place] [address] [facility] Referral ID Status Reason Start Date Expiration Date V isits Requested Visits Authorized [id number] Pending Review 08/18/2021 02/14/2022 1 1 Specialty Diagnoses / Procedures Referred By Contac t Referred To Contact Radiology Diagnoses Breast mass, right Procedures MG Mammo Digital Screening bilat Ken Loya, LAYTON [address] [place] [address] [facility] Referral ID Status Reason Start Date Expiration Date V isits Requested Visits Authorized [id number] Authorized 08/18/2021 02/14/2022 1 1 Specialty Diagnoses / Procedures Referred By Contac t Referred To Contact Radiology Diagnoses Breast mass, right Procedures US Breast Limited Right Ken Loya, LAYTON [address] [place] [address] [facility] [place] Referral ID Status Reason Start Date Expiration Date V isits Requested Visits Authorized [id number] Pending Review 08/19/2021 02/15/2022 1 1 Specialty Diagnoses / Procedures Referred By Contac t Referred To Contact Gynecology Diagnoses Abnormal uterine bleeding Tracy Allen, CUSTOMER SERV[employer] [address] [facility] [address] [place] [address] Referral ID Status Reason Start Date Expiration Date V isits Requested Visits Authorized [id number] Pending Review 12/28/2023 12/27/2024 1 1 Additional Source Comments Reason for Visit (unrecogniz ed section and content) Reason Comments URI Reason Comments Med Refill Lump in right breast . Noticed lump 7 months ago.Top of breast. Pt states all females on moms side have had breast cancer. Reason Comments Annual Exam nursing school and n eeds vaccines Immunizations Hep B and TB Test Reason Onset Date Comments Med Refill 02/20/2022 Reason Comments Hip Pain Left hip. Fx sacrum last year. Been in worsening pain for past two weeks Reason Onset Date Comments Med Refill 04/24/2022 Reason Onset Date Comments Med Refill 07/03/2022 Reason Onset Date Comments Med Refill 09/12/2022 Reason Comments Nasal Congestion Cough,wheezing, sore throat, dyspnea x Sunday.Exposure to covid. Reason Comments Follow-up ED f/u for chest vanda n/palpitations Carline Bloom RN - 12/23/2018 8:28 PM Frandy Gaitan RRT - 12/23/2018 8:00 PM Sherice Tello PA-C - 12/23/2018 7:54 PM Carline Hernandez RN - 12/23/2018 7:14 PM EDT ED Notes (unrecognized secti on and content) Patient is resting comfortably. Call light within reach. Patient and family updated on continued plan of care. Performed the peak flow and patient achieved 270 out of the 450 predicted (60%). Pt's HR elevated to 140 and felt SOB on first attempt. Dr Loja aware PCP - Joby Loya, DO Chief Complaint Patient presents with URI HPI 18-year-old female with history of asthma presents with father for evaluation of cough, shortness of breath, wheezing. Symptoms started yesterday while playing softball. Complains of a sharp pain to the left chest as well. They improved yesterday evening after a dose of Sudafed and her albuterol inhaler. They started again today when she was at the gym doing leg exercises. She went to an urgent care prior to arrival, had a normal chest x-ray, was given albuterol nebulizer treatment, she states that it made her more tachycardic but has not noticed any relief otherwise. She does take control, no history of DVT or PE. No lower extremity pain or swelling. No recent travel, surgeries or immobilization. She reports that she has had nasal congestion, rhinorrhea, left-sided otalgia, left-sided facial pressure. Denies sore throat. No fever. Had a previous hospitalization for her asthma several years ago. No previous intubations. Review of Systems Constitutional: Negative for fever. HENT: Positive for ear pain. Negative for trouble swallowing. Respiratory: Positive for cough and shortness of breath. Negative for choking. Cardiovascular: Positive for chest pain. Negative for palpitations. Gastrointestinal: Negative for diarrhea, nausea and vomiting. Genitourinary: Negative for difficulty urinating. Skin: Negative for color change. Allergic/Immunologic: Negative for immunocompromised state. Neurological: Negative for weakness. Psychiatric/Behavioral: Negative for agitation. Past Medical History Past Medical History: Diagnosis Date Asthma Past Surgical History History reviewed. No pertinent surgical history. Family History History reviewed. No pertinent family history. Review of Systems All systems reviewed negative except as mentioned above. Physical Exam Vital Signs During ED Visit (as charted by nursing) Patient Vitals for the past 24 hrs: BP Temp Temp src Pulse Resp SpO2 Height Weight 12/23/18 2117 116/59 95 18 96 % 12/23/18 1917 121/59 (!) 125 20 99 % 12/23/18 1750 127/73 99.2 F (37.3 C) Oral (!) 128 18 97 % 5' 4 56.7 kg (125 lb) Physical Exam Constitutional: She is oriented to person, place, and time. She appears well-developed and well-nourished. No distress. HENT: Head: Normocephalic and atraumatic. Right Ear: External ear normal. Left Ear: External ear normal. Mouth/Throat: Oropharynx is clear and moist. Rhinorrhea. TMs normal bilaterally. Tenderness palpation of left maxillary region. Eyes: Conjunctivae are normal. Right eye exhibits no discharge. Left eye exhibits no discharge. Neck: Neck supple. Cardiovascular: Regular rhythm and normal heart sounds. Tachycardic. Pulmonary/Chest: Effort normal. No stridor. No respiratory distress. She has wheezes. Wheezes throughout, and expiration. Abdominal: Soft. There is no tenderness. Musculoskeletal: Normal range of motion. She exhibits no edema. Neurological: She is alert and oriented to person, place, and time. Skin: Skin is warm and dry. She is not diaphoretic. No pallor. Psychiatric: She has a normal mood and affect. Her behavior is normal. Nursing note and vitals reviewed. MEDICAL DECISION MAKING 62-year-old female with history of asthma presenting to the emergency department complains of cough shortness of breath and wheezing. Has a history of asthma but is fairly well controlled and she rarely has to use her inhaler. On arrival she is tachycardic in the 120s, she received albuterol an outlying facility prior to arrival. She is active wheezing on examination. IV established, blood work obtained. Initiated on steroids and Xopenex. CBC without leukocytosis. Hemoglobin stable. BMP normal. pH via VBG normal. EKG unremarkable with exception of sinus tachycardia. CT PE study obtained secondary to her history of tachycardia, on control with a normal chest x-ray at outlying facility. PE study shows no acute findings with no evidence of PE or other acute process in the chest. She is feeling a bit better after her Xopenex. She was still mildly tachycardic, however on second repeat her heart rate was in the high 90s. Discussed recommendation for overnight observation to place her on the monitoring manager with continuous examination and continuous nebulizer treatments. She declines however. She would like to go home. She is obviously 18, but she had a discussion with her father at bedside, as did I, and he is okay with her going home as long as they can find her nebulizer machine. He was able to return to the home, and find a machine, he represented back to the emergency department and he feels okay with patient going home. She is feeling improved, talking with her sister and texting on her cell phone. Wheezes still present but improved. Her peak flow is over 200. At this point will initiate steroid taper, Robert Marquis, I have given her a prescription for both albuterol nebulizer solution and Xopenex. If she is able to afford the Xopenex she will fill that if not she will fill the albuterol. She is to follow-up with her family doctor, Dr. Loya tomorrow, return here for any worsening or further concerns or if she changes her mind and would like to be placed in observation unit for more closer monitoring. Patient has been seen and evaluated by ED attending physician who was determined final impression and plan. Sherice Marte PA-C Labs Reviewed BASIC METABOLIC PANEL - Abnormal; Notable for the following components: Result Value Glucose 129 (*) BUN 7 (*) All other components within normal limits Narrative: The eGFR should be used for monitoring renal function only and not for medication dosing. D-DIMER, QUANTITATIVE - Abnormal; Notable for the following components: D-Dimer 0.54 (*) All other components within normal limits Narrative: This normal reference range has been established for adults ( greater than or equal to 18 years old). The normal range for children and infants may differ from the adult normal range. A D-dimer concentration of <0.5 micrograms per milliliter FEU is considered a low probability for pulmonary embolus (PE) and deep venous thrombosis (DVT). Results of this test should always be interpreted in conjunction with the patient's medical history,clinical presentation, and other findings. Clinical diagnosis should not be based on the results of the D-dimer alone. POC VENOUS BLOOD GAS PANEL-PULM - RALS - Abnormal; Notable for the following components: pCO2, Tony 39.0 (*) O2 Hb 52.1 (*) Glucose 128 (*) All other components within normal limits CBC WITH AUTO DIFFERENTIAL - Abnormal; Notable for the following components: RBC 5.28 (*) Lymphocytes Abs 1.04 (*) All other components within normal limits CBC AND DIFFERENTIAL Narrative: The following orders were created for panel order CBC w/ Diff. Procedure Abnormality Status --------- ------ CBC Auto Differential[[id number]] Abnormal Final result Please view results for these tests on the individual orders. OBTAIN VENOUS BLOOD GASES Radiographic Imaging (if any) During ED Visit CT Pulmonary Arteries Final Result No evidence of pulmonary embolism or other acute process in the chest. Workstation ID: [id number] Medications Ordered/Given During ED Visit Medications levalbuterol (XOPENEX) nebulizer solution 1.25 mg (1.25 mg Nebulization Given 12/23/18 182) methylPREDNISolone sod suc(PF) (SOLU-medrol) Injection 125 mg (125 mg Intravenous Given 12/23/18 180) ketorolac (TORADOL) injection 15 mg (15 mg Intravenous Given 12/23/18 181) iopamidol (ISOVUE-370) 76 % injection 75 mL (75 mL Intravenous Contrast Administered 12/23/18 1846) sodium chloride 0.9% (NS) bolus 500 mL (0 mL Intravenous Stopped 12/23/18 2116) Procedures Sherice Marte PA-C 12/23/18 6755 Patient is resting comfortably. Call light within reach. Patient and family updated on continued plan of care. Pt to ct. Pt arrives to er bed 14 ambulatory and accompanied by [facility] with c/o URI like symptoms, sob, productive cough and cp. Pt states onset yesterday while outside playing softball. Pt states she used her inhaler approximately 4 times yesterday with minimal relief. Pt went to today for symptoms, received a breathing treatment and was transferred to ED via ems. Pt is awake and a+o x 3 with easy respirations. Pt has diffuse exp wheezes in all portillo. No use of accessory muscles or signs of distress. Positive nasal congestion with productive cough with green sputum production. States cp in the middle of her chest that is exacerbated with deep inspiration and cough. Skin is warm, dry and sun burnt through out. MMM. Bed: 14 Expected date: Expected time: Means of arrival: Comments: Del 6 documented in this encounter ED Attestation Note - Rafaela Loja MD - 12/23/2018 6:13 PM EDTED Procedure Note - Rafaela Loja MD - 12/23/2018 6:11 PM EDT Miscellaneous Notes (unrecog nized section and content) ED Attestation: I have reviewed the non physician practitioner's documentation, personally taken the patient's history, performed an exam and agree with the physical findings, clinical impression and management plan Dictation on: 12/23/2018 6:15 PM by: RAFAELA LOJA [[id number]] Associated Order(s): EKG 12-lead EKG 12-lead Date/Time: 12/23/2018 6:11 PM Performed by: Rafaela Loja MD Authorized by: Sherice Marte PA-C Interpreted by ED attending physician Rhythm: sinus rhythm and sinus tachycardia BPM: 115 Conduction: conduction normal ST Segments: ST segments normal T Waves: T waves normal Other findings: JOHNY Clinical impression: abnormal ECG and sinus tachycardia documented in this encounter INFORMATION SOURCE (unrecogn ized section and content) DATE CREATED AUTHOR 03/01/2019 [facility] DATE CREATED AUTHOR AUTHOR'S ORGANIZ ATION 04/23/2019 [facility] DATE CREATED AUTHOR AUTHOR'S ORGANIZ ATION 04/22/2022 [facility] DATE CREATED AUTHOR AUTHOR'S ORGANIZ ATION 11/21/2022 [facility] DATE CREATED AUTHOR AUTHOR'S ORGANIZ ATION 12/02/2022 [facility] DATE CREATED AUTHOR AUTHOR'S ORGANIZ ATION 12/06/2022 [facility] DATE CREATED AUTHOR AUTHOR'S ORGANIZ ATION 02/25/2024 [facility] DATE CREATED AUTHOR AUTHOR'S ORGANIZ ATION 03/09/2024 [facility] Ordered Prescriptions (unrec ognized section and content) Prescription Sig Dispensed Refills Start Date End Da te norethindrone-ethinyl estradiol (,) 1-20 mg-mcg per tablet 08/11 () 1 mg-20 mcg tablet Take 1 tablet every day by oral route. 21 tablet 2 08/18/2021 Prescription Sig Dispensed Refills Start Date End Da te norethindrone-ethinyl estradiol (,) 1-20 mg-mcg per tablet 08/11 () 1 mg-20 mcg tablet Take 1 tablet every day by oral route. 21 tablet 2 12/26/2021 Prescription Sig Dispensed Refills Start Date End Da te norethindrone-ethinyl estradiol (,) 1-20 mg-mcg per tablet 08/11 () 1 mg-20 mcg tablet Take 1 tablet every day by oral route. 21 tablet 2 02/20/2022 Prescription Sig Dispensed Refills Start Date End Da te naproxen (NAPROSYN) 500 mg tablet Take 1 tablet (500 mg total) by mouth 2 (two) times a day with meals for 7 days. 14 each 0 04/07/2022 04/14/2022 Prescription Sig Dispensed Refills Start Date End Da te norethindrone-ethinyl estradiol (,) 1-20 mg-mcg per tablet 08/11 () 1 mg-20 mcg tablet Take 1 tablet every day by oral route. 21 tablet 2 04/24/2022 Prescription Sig Dispensed Refills Start Date End Da te norethindrone-ethinyl estradiol (Junel 1/20, 21,) 1-20 mg-mcg per tablet 08/11 (21) 1 mg-20 mcg tablet Take 1 tablet every day by oral route. 21 tablet 2 07/03/2022 Prescription Sig Dispensed Refills Start Date End Da predniSONE (DELTASONE) 50 mg tabletIndications:Cough in adult Take 1 tablet (50 mg total) by mouth 1 (one) time each day for 5 days. 5 tablet 0 11/29/2022 12/04/2022 albuterol HFA (PROAIR HFA ; PROVENTIL HFA ; VENTOLIN HFA) 90 mcg/actuation inhalerIndications:Cough in adult Inhale 2 puffs every 4 (four) hours if needed for shortness of breath or wheezing. 6.7 g 0 11/29/2022 12/29/2022 brompheniramine-pseudoep hedrine-DM 2-30-10 mg/5 mL syrupIndications:Cough in adult Take 10 mL by mouth 4 (four) times a day if needed for allergies for up to 10 days. 118 mL 0 11/29/2022 12/09/2022 azithromycin (Zithromax Z-Juan) 250 mg tabletIndications:Bronch itis Take 2 tablets the first day, then 1 tablet daily for 4 days. 6 tablet 0 11/29/2022 Care Teams (unrecognized sec tion and content) Hat Block Bench Hand Relationship Specialty Start Date End Date Joby Loya DO [address] [place] [address] PCP - General Family Medicine 03/08/20 [employer] Bench Hand Relationship Specialty Start Date End Date Joby Loya DO [address] [place] [address] PCP - General Family Medicine 03/08/20 [employer] Bench Hand Relationship Specialty Start Date End Date Joby Loya DO [address] [place] [address] PCP - General Family Medicine 03/08/20 [employer] Bench Hand Relationship Specialty Start Date End Date Ken Loya, LAYTON [address] [place] [facility] [place] [address] PCP - General Family Medicine 11/14/21 [employer] Bench Hand Relationship Specialty Start Date End Date Vincenzo Ken Lunsford NP [address] [place] [address] PCP - General Family Medicine 11/14/21 [employer] Bench Hand Relationship Specialty Start Date End Date Vincenzo Ken Lunsford NP [address] [place] [facility] [place] [address] PCP - General Family Medicine 11/14/21 [employer] Bench Hand Relationship Specialty Start Date End Date Vincenzo Ken Lunsford NP [address] [place] [facility] [place] [address] PCP - General Family Medicine 11/14/21 Hat Block Bench Hand Relationship Specialty Start Date End Date Vincenzo Ken Lunsford NP [address] [place] [facility] [place] [address] PCP - General Family Medicine 11/14/21 [employer] Bench Hand Relationship Specialty Start Date End Date Vincenzo Ken Lunsford NP [address] [place] [address] PCP - General Family Medicine 11/14/21 Hat Block Bench Hand Relationship Specialty Start Date End Date No, Physician [facility] PCP - General 12/21/23 <item> Privacy Markings (unrecogniz ed section and content) Section Author: Ca Dyer PROHIBITION ON REDISCLOSURE OF CONFIDENTIAL INFORMATION This notice accompanies a disclosure of information concerning a client made to you with the consent of such client. FOR RECORDS PERTAINING TO PATIENTS WHO ARE OR HAVE BEEN ENROLLED IN A CHEMICAL DEPENDENCY/SUBSTANCEABUSE PROGRAM, SOME INFORMATION MAY BE OMITTED. This clinical summary was aggregated from multiple sources. Caution should be exercised in using it in the provision of clinical care. This summary normalizes information from multiple sources, and as a consequence, information in this document may materially change the coding, format and clinical context of patient data. In addition, data may be omitted in some cases. CLINICAL DECISIONS SHOULD BE BASED ON THE PRIMARY CLINICAL RECORDS. [email or web address] [facility]. provides no warranty or guarantee of the accuracy or completeness of information in this document.
[2024-05-16 06:59] LABS: Absolute Lymphocyte Count 2.48 X10^3/uL (0.83-4.51); Absolute Neutrophil Count 2.9 X10^3/uL (2.0-7.7); Anion Gap 5 (5-15); BUN 13 mg/dL (7-18); BUN/Creat Ratio 19.3 RATIO (10-20); Basophil# 0.05 X10^3/uL; Basophil% 0.8 % (0-1); Calcium,Total 8.8 mg/dL (8.5-10.1); Chloride 109 mmol/L (98-107); Creatinine, Serum 0.67 mg/dL (0.55-1.02); EST Glomerular Filtration Rate 116 mL/min (>60); Eosinophil# 0.47 X10^3/uL; Eosinophils% 7.4 % (0-5); Est Glom Filt Rate - Afr Amer 141 mL/min (>60); Estimated Creatinine Clearance 145.09 ml/min; Glucose 104 mg/dL (74-106); Hematocrit 42.7 % (37-47); Hemoglobin 14.2 g/dL (12.0-15.0); Lymphocyte # 2.48 X10^3/ul (0.83-4.51); Lymphocyte % 38.8 % (19-41); Mean Corp Hgb Conc 33.3 g/dL (32-36); Mean Corpuscular Hgb 27.5 pg (27.0-32.0); Mean Corpuscular Volume 82.8 fL (81-99); Mean Platelet Vol. 9.2 fl (6.2-12.0); Monocyte# 0.51 X10^3/uL; NRBC Flagged by Analyzer 0 % (0-5); Neutrophil # 2.85 X10^3/uL (2.7-7.7); Neutrophil % 44.5 % (47-70); Platelet Count 279 K/mm3 (150-450); Potassium 3.7 mmol/L (3.5-5.1); RBC Distribution Width CV 12.1 % (11.6-14.6); RBC Distribution Width SD 36.8 fl (35.1-43.9); Red Blood Count 5.16 M/mm3 (4.2-5.4); Sodium Level 139 mmol/L (136-145); Troponin-I HS (w/2H Reflex) < 3 pg/mL (3.0-54.0); White Blood Count 6.4 K/mm3 (4.4-11.0)
[2024-05-16 07:14] VITALS: BP 113/61; PULSE 75; RESP 16; O2SAT 98
[2024-05-16 08:36] VITALS: BP 96/75; PULSE 74; RESP 15; O2SAT 100
[2024-05-16 08:40] LABS: Reflex Troponin-HS? (from REC) Y
[2024-05-16 09:03] LABS: Troponin-I HS < 3 pg/mL (3.0-54.0)
[2024-05-16 09:14] VITALS: BP 119/64; PULSE 72; RESP 15; TEMP 36.8; O2SAT 100
== END 2024-05-16 09:15 | disposition home or self-care (01) ==
PROVIDERS: Emergency Provider Emergency Medicine; PCP Family Medicine; Visit Provider Emergency Medicine
DX: R07.9 Chest pain, unspecified (principal); R05.9 Cough, unspecified; G90.A Postural orthostatic tachycardia syndrome [POTS]; E28.2 Polycystic ovarian syndrome; F17.290 Nicotine dependence, other tobacco product, uncomplicated; J45.909 Unspecified asthma, uncomplicated; Z79.899 Other long term (current) drug therapy
CPT/HCPCS: 71046; 80048; 84484; 85025; 93005; 99283; A4216

== ENCOUNTER 2024-06-16 11:46 | Emergency (ER) | payer BC, SELFPAY ==
[2024-06-16 11:47] VITALS: BP 109/63; PULSE 92; RESP 16; TEMP 36.6; O2SAT 99; BMI 30.7
--- NOTE | 2024-06-16 11:59 | EX.ED.DYSGE1 ---
HPI History of Present Illness Chief Complaint: Abd Pain [facility] Medical History Pneumonia POTS (postural orthostatic tachycardia syndrome) Asthma PCOS (polycystic ovarian syndrome) Home Medications ?Medication ?Instructions ?Recorded ?Last Taken ?Type medroxyprogesterone 150 mg/mL 300 mg IM .3 months 12/11/23 Unknown History intramuscular suspension (Depo-Provera) metoprolol tartrate 25 mg tablet 25 mg PO BID #180 tabs 03/25/24 Unknown Rx ipratropium bromide 17 1 puff inhalation Q6H 04/18/24 Unknown History mcg/actuation HFA aerosol inhaler (Atrovent HFA) Allergy/AdvReac Type Severity Reaction Status Date / Time No Known Allergies Allergy Verified 06/16/24 11:47 Family History Sister Thyroid disorder Cancer Mother Cancer Thyroid disorder Father Diabetes Peripheral vascular disease Surgical History H/O wisdom tooth extraction Social History household members: significant other and children Smoking Status: Current every day smoker tobacco type: e-cigarettes alcohol intake: current alcohol intake frequency: holidays/special occasions only substance use type: does not use caffeine: Yes (on occasion per pt) EXAM Physical Exam Const Vital Signs: 06/16/24 11:47 Temperature 98 F Temperature Source Temporal Pulse Rate 92 Respiratory Rate 16 Blood Pressure 109/63 Blood Pressure Mean 78 Pulse Ox 99 Oxygen Delivery Method Room Air [facility] [place] Medical decision making narrative: HISTORY OF PRESENT ILLNESS: 24-year-old female presents with lower abdominal pain and nausea with vomiting and diarrhea. Notes symptoms began on Sunday night. REVIEW OF SYSTEMS: Pertinent positives: Abdominal pain nausea vomiting diarrhea Pertinent negatives: Fever, chest pain, shortness of breath PHYSICAL EXAM: Nursing triage notes reviewed, Vital signs reviewed Constitutional: please see mdm HENT: MMM Eyes: Pupils equal round and reactive to light, Extraocular muscles intact Neck: No stridor, no JVD, full neck ROM Lungs: Clear to auscultation, No wheezing or rales. No increased work of breathing, no conversational dyspnea, no accessory muscle use, no nasal flaring. No respiratory distress noted Heart: Regular rate and rhythm, No murmurs, No rubs and No gallops, 2+ distal pulses (radial, femoral, posterior tibial) in all extremities Abdomen: Soft, there is no tenderness, rigidity, rebound or guarding, no obvious peritoneal signs, no palpable pulsatile abdominal masses, no auscultated abdominal bruit : No CVAT Extremities: No edema Neuro: No focal neurological deficits, cranial nerves II through XII intact, 5/5 strength in all extremities. Intact sensation to light touch in all extremities, 2+ reflexes bilateral patella tendons. Normal gait. No ataxia. Skin: No rash or lesions noted MEDICAL DECISION MAKING: Chief Complaint: Abdominal pain, vomiting diarrhea External records reviewed: Prior imaging studies reviewed: CT scan of the abdomen pelvis from October 2022 shows normal appendix, ovarian cyst Factors affecting care: ovarian cyst Social determinants of health: none History obtained from others: none Consults: none MDM Narrative: Patient was hemodynamically stable, afebrile and nontoxic-appearing. Exam with slight lower abdominal tenderness but no obvious peritoneal signs I considered the following differential diagnosis: AAA, small bowel obstruction, abdominal perforation, appendicitis, pancreatitis, hepatobiliary pathology (acute cholecystitis), mesenteric ischemia, pathology (ie nephrolithiasis, pyelonephritis). , ectopic , ovarian torsion, tubo-ovarian abscess The patients abdominal exam did not have signs of adnexal tenderness denies send have a lower suspicion for ovarian pathology including torsion or tubo-ovarian abscess I obtained a broad lab and imaging workup to further elucidate etiology of patient complaints Initially treat the patient with Zofran, normal saline for rehydration and oral Tylenol for pain control ALL IMAGES (IF OBTAINED) HAVE BEEN PERSONALLY REVIEWED AND INTERPRETED BY MYSELF. Urine is negative making ectopic less likely Urinalysis shows no evidence of urinary inflammation suggestive of UTI CBC without leukocytosis, severe anemia, no thrombocytopenia. CMP without evidence of acute kidney injury, significant electrolyte abnormality, anion gap to suggest end organ hypo-perfusion, no evidence of metabolic acidosis with a normal bicarbonate, no evidence of hepatobiliary obstructive pathology. Lipase is wnl indicating no pancreatic inflammation. CT scan of the abdomen pelvis shows no evidence of acute surgical abdominal etiology including acute appendicitis The patient and/or family, caregivers express understanding. The patient and/or family, caregivers agrees with the plan. Shared decision making: I will have a discussion with the patient and or visitors regarding risk/benefits of further testing or admission. They will be made aware of of the risk/benefits inherent in this decision they will be given the opportunity to voice understanding. Total critical care time today provided was at least 0 [] minutes. This excludes separately billable procedures. Critical care time (if documented) is secondary to the patient having high probability of clinically significant/life threatening deterioration in the patient's condition which required my urgent intervention. Impression: 1. Acute abdominal pain 2. Viral gastroenteritis Dispo: Discharge This note was generated with Dada dictation software. It may contain incorrect words, spelling, and punctuation that were not noted in review of the chart prior to signing. Lab Data Labs: Laboratory Results - last 24 hr 06/16/24 12:27 WBC 7.4 RBC 5.23 Hgb 14.1 Hct 42.4 MCV 81.1 MCH 27.0 MCHC 33.3 RDW Std Deviation 35.5 RDW Coeff of Parvin 12.1 Plt Count 306 MPV 9.1 Immature Gran % (Auto) 0.100 Neut % (Auto) 43.7 L Lymph % (Auto) 33.2 Potter % (Auto) 8.8 Eos % (Auto) 13.5 H Baso % (Auto) 0.7 Absolute Neuts (auto) 3.2 Absolute Lymphs (auto) 2.44 Nucleated RBC % 0 Sodium 140 Potassium 3.8 Chloride 113 H Carbon Dioxide 21.0 Anion Gap 6 BUN 13 Creatinine 0.64 Estim Creat Clear Calc 152.48 Est GFR (MDRD) Af Amer 148 Est GFR (MDRD) Non-Af 123 BUN/Creatinine Ratio 20.2 H Glucose 95 Calcium 9.0 Total Bilirubin 0.40 AST 12 L ALT 20 Alkaline Phosphatase 62 Total Protein 7.3 Albumin 3.6 Globulin 3.7 Albumin/Globulin Ratio 1.0 Lipase 48 Urine Color Yellow Urine Clarity Clear Urine pH 6.0 Ur Specific [place] 1.030 Urine Protein 15 H Urine Glucose (UA) Normal Urine Ketones Negative Urine Occult Blood 25 H Urine Nitrite Negative Urine Bilirubin Negative Urine Urobilinogen Normal Ur Leukocyte Esterase 25 H Urine RBC 0-5 SEEN Urine WBC 0-5 SEEN Ur Squamous Epith Cells 0-5 SEEN Urine Bacteria 2+ Urine Mucus 0 SEEN Urine Test Negative Radiography Diagnostic Testing: Clinical Impression(s) from Imaging Studies Abdomen/Pelvis CT 06/16/24 12:31 IMPRESSION: No acute intracranial process. Colonic diverticulosis. Electronically Signed: Lilliam Rodriguez MD at 13:31 EST , Discharge Plan Triage Chief Complaint: Abd Pain ED Provider: Cyrus Mcnair Dx/Rx/DC Orders Prescriptions: No Action Atrovent HFA 17 mcg/actuation HFA aerosol inhaler 1 puff inhalation Q6H medroxyprogesterone [Depo-Provera] 150 mg/mL suspension 300 mg IM .3 months metoprolol tartrate 25 mg tablet 25 mg PO BID Qty: 180 3RF Primary Care Provider: Ernesto Randhawa Referrals: Ernesto Randhawa MD [Primary Care Provider] - Print Language: Mohawk
--- NOTE | 2024-06-16 12:31 | CT_ITS ---
STUDY: CT ABDOMEN AND PELVIS WITH CONTRAST - URINARY TRACT REASON FOR EXAM: Female, 24 years old. RLQ abd pain assess for acute appendicitis RADIATION DOSAGE (If Supplied By Facility): CTDIvol = ( 14.99 ) mGy, DLP = ( 861.49 ) mGycm TECHNIQUE: IV 100mL Isovue-370 was administered. Transaxial images were obtained from the dome of the diaphragm to the symphysis pubis subsequent to intravenous contrast administration. Multiplanar coronal and sagittal images were reformatted. The protocol utilizes one or more of the following dose reduction techniques: automated exposure control, adjustment of mA and/or kV according to patient size,and/or use of iterative reconstruction technique. COMPARISON: No relevant prior comparison study available FINDINGS: The visualized lung bases are unremarkable. The visualized portions of the heart are within normal limits. Normal liver. The gallbladder is contracted. Normal spleen. Normal pancreas. Normal bilateral adrenal glands. Normal visualized stomach. Normal small intestine. There are multiple colonic diverticula consistent with diverticulosis. The appendix is visualized and appears normal. Normal abdominal aorta. No retroperitoneal adenopathy. Normal right kidney. Normal left kidney. Normal urinary bladder. Normal abdominal wall. Normal osseous structures. CT/Abdomen/Pelvis W IV Cont ONLY IMPRESSION: No acute intracranial process. Colonic diverticulosis. Electronically Signed: Lilliam Rodriguez MD at 13:31 EST ,
[2024-06-16 12:37] LABS: Mucous, Urine 0 SEEN /hpf (<or=2+)
[2024-06-16] MEDS: Ondansetron ODT 4 MG Tablet PO (12:38)
[2024-06-16 12:41] LABS: Absolute Lymphocyte Count 2.44 X10^3/uL (0.83-4.51); Absolute Neutrophil Count 3.2 X10^3/uL (2.0-7.7); Basophil# 0.05 X10^3/uL; Basophil% 0.7 % (0-1); Eosinophil# 0.99 X10^3/uL; Eosinophils% 13.5 % (0-5); Hematocrit 42.4 % (37-47); Hemoglobin 14.1 g/dL (12.0-15.0); Lymphocyte # 2.44 X10^3/ul (0.83-4.51); Lymphocyte % 33.2 % (19-41); Mean Corp Hgb Conc 33.3 g/dL (32-36); Mean Corpuscular Volume 81.1 fL (81-99); Mean Platelet Vol. 9.1 fl (6.2-12.0); Monocyte# 0.65 X10^3/uL; Monocyte% 8.8 % (0-10); NRBC Flagged by Analyzer 0 % (0-5); Neutrophil # 3.22 X10^3/uL (2.7-7.7); Neutrophil % 43.7 % (47-70); Platelet Count 306 K/mm3 (150-450); RBC Distribution Width CV 12.1 % (11.6-14.6); RBC Distribution Width SD 35.5 fl (35.1-43.9); Red Blood Count 5.23 M/mm3 (4.2-5.4); White Blood Count 7.4 K/mm3 (4.4-11.0)
[2024-06-16 12:42] LABS: Color, Urine Yellow (Yellow); Glucose, Dipstick Normal (Normal); Ketone-Dipstick Negative (Negative); Leukocyte Esterase-Dipstick 25 /ul (Negative); Nitrite-Dipstick Negative (Negative); Occult Blood-Urine 25 /ul (Negative); Protein-Dipstick 15 mg/dl (Negative); Urine Bilirubin Dipstick Negative (Negative); Urine Clarity Clear (Clear); Urine Urobilinogen Normal (Normal)
[2024-06-16 12:49] LABS: Bacteria 2+ /hpf (None Seen); Internal QC Validated? YES +Cl - CLEAR BKGD; Pregnancy, Urine Negative Negative; Red Blood Cells-Urine 0-5 SEEN /hpf (0-5); Squamous Epithelial Cells - UA 0-5 SEEN /hpf (5-10); White Blood Cells 0-5 SEEN /hpf (0-5)
[2024-06-16 12:50] LABS: Record Kit Lot#,Urine Preg 869294
[2024-06-16 13:08] LABS: AST(SGOT) 12 U/L (15-37); Alanine Aminotransfer ALT/SGPT 20 U/L (13-56); Albumin, Serum 3.6 g/dL (3.2-5.0); Alkaline Phosphatase 62 U/L (45-117); Anion Gap 6 (5-15); BUN 13 mg/dL (7-18); BUN/Creat Ratio 20.2 RATIO (10-20); Chloride 113 mmol/L (98-107); Creatinine, Serum 0.64 mg/dL (0.55-1.02); EST Glomerular Filtration Rate 123 mL/min (>60); Est Glom Filt Rate - Afr Amer 148 mL/min (>60); Estimated Creatinine Clearance 152.48 ml/min; Globulin 3.7 g/dL (2.2-4.2); Glucose 95 mg/dL (74-106); Lipase 48 U/L (13-75); Potassium 3.8 mmol/L (3.5-5.1); Protein, Total 7.3 g/dL (6.4-8.2); Sodium Level 140 mmol/L (136-145)
[2024-06-16 13:47] VITALS: BP 106/66; PULSE 71; RESP 16; O2SAT 98
[2024-06-16 14:27] VITALS: BP 106/66; PULSE 71; RESP 16; TEMP 36.6; O2SAT 98
== END 2024-06-16 14:28 | disposition home or self-care (01) ==
PROVIDERS: Emergency Provider Emergency Medicine; PCP Family Medicine; Referring Provider Emergency Medicine; Visit Provider Emergency Medicine
DX: A08.4 Viral intestinal infection, unspecified (principal); G90.A Postural orthostatic tachycardia syndrome [POTS]; E28.2 Polycystic ovarian syndrome; J45.909 Unspecified asthma, uncomplicated; Z79.899 Other long term (current) drug therapy; F17.290 Nicotine dependence, other tobacco product, uncomplicated
CPT/HCPCS: 74177; 80053; 81001; 81025; 83690; 85025; 99283; Q9967; A4216

== ENCOUNTER 2024-08-27 06:14 | Emergency (ER) | payer BC, SELFPAY ==
[2024-08-27 06:16] VITALS: BP 125/71; PULSE 113; RESP 15; TEMP 36.6; O2SAT 96; BMI 32.8
--- NOTE | 2024-08-27 06:35 | EKG12_ITS ---
Test Reason : CP Blood Pressure : */* mmHG Vent. Rate : 104 BPM Atrial Rate : 104 BPM P-R Int : 162 ms QRS Dur : 72 ms QT Int : 340 ms P-R-T Axes : 62 26 42 degrees QTcB Int : 447 ms Sinus tachycardia Otherwise normal ECG Confirmed by BRUNA TUTTLE, MISTI ([id number]), tape editor CATRINA DEL ROSARIO ([id number]) on 08/28/2024 6:55:37 AM Referred By: Confirmed By: MISTI MCFARLAND MD
[2024-08-27] MEDS: 0.9% Normal Saline (1000mL) 1,000 ML 999 ML IV (06:46)
[2024-08-27 07:23] LABS: Internal QC Validated? YES +Cl - CLEAR BKGD; Pregnancy, Serum, hCG Quali. NEGATIVE Negative
[2024-08-27 07:25] LABS: Absolute Lymphocyte Count 2.04 X10^3/uL (0.83-4.51); Basophil# 0.05 X10^3/uL; Basophil% 0.5 % (0-1); Eosinophil# 0.37 X10^3/uL; Eosinophils% 3.5 % (0-5); Hematocrit 40.1 % (37-47); Hemoglobin 13.3 g/dL (12.0-15.0); Lymphocyte # 2.04 X10^3/ul (0.83-4.51); Lymphocyte % 19.5 % (19-41); Mean Corp Hgb Conc 33.2 g/dL (32-36); Mean Corpuscular Volume 81.3 fL (81-99); Mean Platelet Vol. 9.3 fl (6.2-12.0); Monocyte# 0.92 X10^3/uL; Monocyte% 8.8 % (0-10); NRBC Flagged by Analyzer 0 % (0-5); Neutrophil # 7.03 X10^3/uL (2.7-7.7); Neutrophil % 67.1 % (47-70); Platelet Count 271 K/mm3 (150-450); RBC Distribution Width CV 12.8 % (11.6-14.6); RBC Distribution Width SD 37.3 fl (35.1-43.9); Red Blood Count 4.93 M/mm3 (4.2-5.4); White Blood Count 10.5 K/mm3 (4.4-11.0)
[2024-08-27 07:30] LABS: Anion Gap 9 (5-15); BUN 9 mg/dL (7-18); BUN/Creat Ratio 12.9 RATIO (10-20); Calcium,Total 8.7 mg/dL (8.5-10.1); Chloride 108 mmol/L (98-107); EST Glomerular Filtration Rate 111 mL/min (>60); Est Glom Filt Rate - Afr Amer 135 mL/min (>60); Estimated Creatinine Clearance 144.39 ml/min; Glucose 98 mg/dL (74-106); Magnesium 2.1 mg/dL (1.6-2.6); Potassium 3.7 mmol/L (3.5-5.1); Sodium Level 138 mmol/L (136-145); Troponin-I HS < 3 pg/mL (3.0-54.0)
--- NOTE | 2024-08-27 07:31 | EDS_ITS ---
HPI History of Present Illness Chief Complaint: Chest Pain Informant: patient and EMS Narrative Narrative: Patient is a 24-year-old female with past medical history of POTS and PCOS. She states that she developed left midsternal chest discomfort radiating towards the left arm a few hours prior to arrival. She denies any family history of cardiac disease at a young age and she denies any excessive stimulant use or illicit drug use. She also denies any recent travel surgery or history of DVT/PE. She does states she was sick roughly 1 week ago and was tested for viral infections at a urgent care which were negative but she denies having a chest x-ray. She states however that the symptoms have spontaneously improved. She reports she is right-hand dominant and denies any excessive activity with the left arm which could have created her increased pain and she denies any abdominal discomfort or symptoms. However as the pain has persisted for the last 2 hours she does have concern that this could be potential cardiovascular nature and therefore comes in for evaluation [facility] Medical History Pneumonia POTS (postural orthostatic tachycardia syndrome) Asthma PCOS (polycystic ovarian syndrome) Home Medications ?Medication ?Instructions ?Recorded ?Last Taken ?Type medroxyprogesterone 150 mg/mL 300 mg IM .3 months 11/21 08/15 Unknown History intramuscular suspension (Depo-Provera) metoprolol tartrate 25 mg tablet 25 mg PO BID #180 tab s 03/25/24 Unknown Rx quetiapine 25 mg tablet 25 mg PO DAILY 08/15/24 Unkn own History Allergy/AdvReac Type Severity Reaction Status Date / Time No Known Allergies Allergy Verified 08/15/24 07:46 Family History Sister Thyroid disorder Cancer Mother Cancer Thyroid disorder Father Diabetes Peripheral vascular disease Surgical History H/O wisdom tooth extraction Social History household members: significant other and children Smoking Status: Current every day smoker tobacco type: e-cigarettes alcohol intake: current alcohol intake frequency: holidays/special occasions only substance use type: does not use caffeine: Yes (on occasion per pt) ROS ROS ED Constitutional Constitutional ED: Denies chills or fever(s) Eyes Eyes: Denies change in vision ENT ENT ED: Denies sore throat Cardiovascular Cardiovascular: Reports chest pain and racing heartbeat Respiratory/Chest Respiratory/Chest: Denies cough or dyspnea Gastrointestinal Gastrointestinal: Denies abdominal pain, diarrhea, nausea or vomiting Genitourinary Genitourinary ED: Denies dysuria Musculoskeletal Musculoskeletal: Denies back pain Integumentary Denies rash Neurologic Neurologic: Denies headache(s) Hematologic/Lymphatic Hematologic/Lymphatic: Denies easy bleeding or easy bruising EXAM Physical Exam Const Vital Signs: 08/27/24 06:16 08/27/24 06:19 Temperature 98 F Temperature Source Oral Pulse Rate 113 H Respiratory Rate 15 Respiratory Effort Short of Breath Blood Pressure 125/71 H Blood Pressure Mean 89 Pulse Ox 96 Oxygen Delivery Method Room Air Positive well nourished and well developed General Appearance ED: well developed; Negative for pallor HEENT Reports moist mucous membranes HEENT Narrative: Normocephalic atraumatic Eyes PERRL and EOMs intact bilaterally General Eye ED: Negative for scleral icterus Neck supple Chest Wall Chest Narrative: No bony deformity or crepitance or subcutaneous emphysema noted There is mild reproducible midsternal to left-sided chest pain with palpation Resp normal respiratory effort and clear to auscultation bilaterally Cardio regular rhythm Rate: tachycardic and other Other Details: Tachycardic rate with regular rhythm No murmurs rubs or gallops Radial and carotid pulses are equal and symmetric GI normal to inspection, nondistended, normoactive bowel sounds, non-tender, non- distended and no masses Auscultation: normoactive bowel sounds Palpation: soft Extremity normal to inspection Extremity Narrative: No asymmetric edema no pitting edema negative Homans' sign bilaterally Neuro oriented x3, CN's II-XII intact bilaterally and no sensory deficits noted Sensorium / Orientation: alert Motor Exam: strength 5/5 throughout Psych Mood & Affect: anxious Skin no rashes or lesions noted and no wounds General Skin Exam: Negative for jaundice or pallor MDM MDM MDM Narrative Medical decision making narrative: Patient presented to the ER tachycardic but otherwise with stable vitals. She is low risk for acute coronary syndrome but with her chest discomfort there is concern for this versus cardiac dysrhythmia versus pneumonia or pneumothorax versus pulmonary embolus versus acute blood loss anemia versus electrolyte abnormality versus myocarditis. Secondary to his basic blood work and EKG were obtained. EKG showed sinus tachycardia without dysrhythmia change or ischemia changes and troponin is less than 3 going against ACS or myocarditis. Blood work revealed no findings of acute blood loss anemia acute kidney injury or clinically significant electrolyte abnormality. As she is tachycardic and reporting chest pain even though she does not have risk factors for PE there is concern for this so a D-dimer was obtained. D-dimer is technically elevated at 0.6. Secondary to this a CTA of the chest will be obtained. At this time the CTA still pending but assuming it is negative she should be safe for discharge As CTA is outstanding her care will be signed out to Dr. Negro History & Record Review Discussion w/independent historian: Patient Lab Data Attestation: I reviewed the patient's lab results. Labs: Laboratory Results - last 24 hr 08/27/24 08/27/24 06:33 06:40 WBC 10.5 RBC 4.93 Hgb 13.3 Hct 40.1 MCV 81.3 MCH 27.0 MCHC 33.2 RDW Std Deviation 37.3 RDW Coeff of Parvin 12.8 Plt Count 271 MPV 9.3 Immature Gran % (Auto) 0.600 Neut % (Auto) 67.1 Lymph % (Auto) 19.5 Imperial % (Auto) 8.8 Eos % (Auto) 3.5 Baso % (Auto) 0.5 Absolute Neuts (auto) 7.0 Absolute Lymphs (auto) 2.04 Nucleated RBC % 0 D-Dimer Quant (PE/DVT) 0.60 H* Sodium 138 Potassium 3.7 Chloride 108 H Carbon Dioxide 21.0 Anion Gap 9 BUN 9 Creatinine 0.70 Estim Creat Clear Calc 144.39 Est GFR (MDRD) Af Amer 135 Est GFR (MDRD) Non-Af 111 BUN/Creatinine Ratio 12.9 Glucose 98 Calcium 8.7 Magnesium 2.1 Troponin I High Sens < 3 L TSH 1.630 Serum , Qual NEGATIVE Discharge Plan Triage Chief Complaint: Chest Pain ED Provider: Derrick Escalona Dx/Rx/DC Orders Clinical Impression: POTS (postural orthostatic tachycardia syndrome), Acute nonspecific chest pain with low risk of coronary artery disease Instructions: ED Chest Pain, Uncertain Cause Prescriptions: No Action quetiapine 25 mg tablet 25 mg PO DAILY medroxyprogesterone [Depo-Provera] 150 mg/mL suspension 300 mg IM .3 months metoprolol tartrate 25 mg tablet 25 mg PO BID Qty: 180 3RF Primary Care Provider: Ernesto Randhawa Referrals: Ernesto Randhawa MD [Primary Care Provider] - Print Language: Angolan
--- NOTE | 2024-08-27 07:37 | CT_ITS ---
EXAM: CT Angiography Chest Without and With Intravenous Contrast CLINICAL INDICATION: TECHNIQUE: Axial computed tomographic angiography images of the chest without and with intravenous contrast. This CT exam was performed using one or more of the following dose reduction techniques: automated exposure control, adjustment of the mA and/or kV according to patient size, and/or use of iterative reconstruction technique. MIP reconstructed images were created and reviewed. COMPARISON: No relevant prior studies available. FINDINGS: PULMONARY ARTERIES: Unremarkable. No pulmonary embolism. AORTA: No acute findings. No thoracic aortic aneurysm. LUNGS AND PLEURAL SPACES: Unremarkable. No mass. No consolidation. No significant effusion. No pneumothorax. HEART: Unremarkable. No cardiomegaly. No significant pericardial effusion. No evidence of RV dysfunction. BONES/JOINTS: No acute fracture. No dislocation. SOFT TISSUES: Unremarkable. LYMPH NODES: Unremarkable. No enlarged lymph nodes. CT/CTA Chest W/WO Contrast IMPRESSION: No pulmonary embolism. [facility]
[2024-08-27 08:14] VITALS: BP 100/62; PULSE 95; RESP 23; O2SAT 99
--- NOTE | 2024-08-27 09:28 | ED.RN ---
this rn updated pt. on delay in CT scan results
[2024-08-27 09:59] VITALS: BP 104/59; PULSE 81; RESP 20; TEMP 36.9; O2SAT 100
== END 2024-08-27 10:00 | disposition home or self-care (01) ==
LOC: ED 06:52
PROVIDERS: Emergency Provider Emergency Medicine; PCP Family Medicine; Visit Provider Emergency Medicine
DX: R07.89 Other chest pain (principal); G90.A Postural orthostatic tachycardia syndrome [POTS]; J45.909 Unspecified asthma, uncomplicated; Z82.49 Family history of ischemic heart disease and other diseases of the circulatory system; Z79.899 Other long term (current) drug therapy; F17.290 Nicotine dependence, other tobacco product, uncomplicated
CPT/HCPCS: 71275; 80048; 83735; 84443; 84484; 84703; 85025; 85379; 93005; 96360; 99285; Q9967; A4216

== ENCOUNTER → 2024-09-11 | Outpatient (CLI) | payer BC, SELFPAY ==
[2024-09-15 20:08] LABS: Chlamydia By Nucleic Acid AMP Negative (Negative); Gonococcus By Nucleic Acid AMP Negative (Negative)
[2024-09-17 08:22] LABS: HPV Reflexed? NOT INDICATED
== END | disposition home or self-care (01) ==
LOC: LABSPEC 15:12
PROVIDERS: PCP Family Medicine; Referring Provider Advanced Practice Midwife; Visit Provider Advanced Practice Midwife
DX: Z12.4 Encounter for screening for malignant neoplasm of cervix (principal); Z11.8 Encounter for screening for other infectious and parasitic diseases; Z11.3 Encounter for screening for infections with a predominantly sexual mode of transmission
CPT/HCPCS: 87491; 87591; 88175; G0145

== ENCOUNTER 2024-11-24 09:29 | Emergency (ER) | payer OTHER, BC, SELFPAY ==
[2024-11-24 09:30] VITALS: BP 114/56; PULSE 62; RESP 16; TEMP 36.6; O2SAT 100; BMI 34.5
--- NOTE | 2024-11-24 09:37 | ED.RN ---
Per patient, employer will require drug testing.
--- NOTE | 2024-11-24 10:13 | EDS_ITS ---
HPI History of Present Illness Chief Complaint: Head Injury Informant: patient Narrative Narrative: Patient is a 24-year-old female with history of POTS presenting for evaluation after head injury. Patient was at work and trying to get patient into a Rachel steady which is a type of device that helps patients with ambulation. She was try to pick something up from the ground and when she stood up she hit her head (approximately the vertex and slightly to the right) on the handle for it. She states that initially her vision was black for couple seconds and she sat down. She did not pass out and was aware of what was going on. She states she was then seeing stars. She became nauseous and threw up twice. She notes she is not having a headache and just feels tired. She denies any acute numbness or tingling. Denies any vision changes. She has a mild headache now just feels tired. Did not take anything for arrival. States she has remote history of concussion years ago. Is not on any blood thinners. No other acute complaints or concerns at this time [facility] Medical History Pneumonia POTS (postural orthostatic tachycardia syndrome) Asthma PCOS (polycystic ovarian syndrome) Home Medications ?Medication ?Instructions ?Recorded ?Last Taken ?Type metoprolol tartrate 25 mg tablet 25 mg PO BID #180 tab s 03/25/24 11/24/24 Rx quetiapine 25 mg tablet 25 mg PO DAILY 08/15/2411/14 History Allergy/AdvReac Type Severity Reaction Status Date / Time No Known Allergies Allergy Verified 11/24/24 09:36 Family History Sister Thyroid disorder Cancer Mother Cancer Thyroid disorder Father Diabetes Peripheral vascular disease Surgical History H/O wisdom tooth extraction Social History household members: significant other Smoking Status: Current every day smoker tobacco type: e-cigarettes alcohol intake: current alcohol intake frequency: holidays/special occasions only substance use type: does not use caffeine: Yes (on occasion per pt) additional social history: Fiance: Prakash ROS ROS ED Constitutional Constitutional ED: Denies chills or sweats Eyes Eyes: Denies blurry vision or change in vision ENT ENT ED: Denies rhinorrhea Cardiovascular Cardiovascular: Denies chest pain Respiratory/Chest Respiratory/Chest: Denies cough or dyspnea Gastrointestinal Gastrointestinal: Reports nausea and vomiting; Denies abdominal pain Musculoskeletal Musculoskeletal: Denies arthralgias or myalgias Integumentary Denies Abrasions or rash Neurologic Neurologic: Reports headache(s); Denies paresthesias or weakness Hematologic/Lymphatic Hematologic/Lymphatic: Denies easy bleeding or easy bruising EXAM Physical Exam Const Vital Signs: 11/24/24 09:30 Temperature 98 F Temperature Source Oral Pulse Rate 62 Respiratory Rate 16 Blood Pressure 114/56 L Blood Pressure Mean 75 Pulse Ox 100 Oxygen Delivery Method Room Air Positive well nourished and well developed General Appearance ED: well developed and NAD HEENT atraumatic Eyes PERRL Neck full ROM General: Negative for tenderness Chest Wall inspection of chest normal Resp normal respiratory effort and clear to auscultation bilaterally Cardio regular rhythm and no murmurs Rate: regular rate GI non-distended Extremity normal to inspection and full ROM Neuro oriented x3, CN's II-XII intact bilaterally, moves all extremities, no focal motor deficits and no sensory deficits noted David Coma Scale: document GCS findings Spontaneous Obeys Commands Oriented 15 Sensorium / Orientation: alert Motor Exam: strength 5/5 throughout Psych mental status grossly normal and thought process normal Skin no rashes or lesions noted and no wounds Skin Narrative: No scalp abrasion or laceration appreciated. No ecchymosis, contusion or hematoma appreciated on the scalp. MDM MDM MDM Narrative Medical decision making narrative: Patient evaluated for closed head injury that occurred at work. She did have 2 episodes of vomiting initially was seeing stars vision changes. Those symptoms have since resolved and now she is just complain of a mild headache. She is offered Tylenol in the ER but declined states she can just take it at home. On exam she has normal neurologic exam. No major signs of head trauma. Suspect this is a concussion and does not require CT brain imaging. Discussed this with patient and she is comfortable with this. Low suspicion for subarachnoid hemorrhage or subdural hemorrhage. Is given return precautions and counseled she has further episodes of vomiting to return to emergency room. Counseled to take Tylenol as needed for headache. Encouraged follow-up as needed with corporate health as this is a Workmen's Compensation injury. Given return precautions. Discharged home in stable condition. Discharge Plan Triage Chief Complaint: Head Injury ED Provider: Cici Evans Dx/Rx/DC Orders Clinical Impression: CHI (closed head injury) Instructions: ED Head Injury (Adult) Prescriptions: No Action quetiapine 25 mg tablet 25 mg PO DAILY metoprolol tartrate 25 mg tablet 25 mg PO BID Qty: 180 3RF Stand Alone Forms: Work Status Form Primary Care Provider: Ernesto Randhawa Referrals: [facility] [Group of Physicians] - Ernesto Randhawa MD [Primary Care Provider] - Print Language: Telugu Disposition Disposition: Home, Self Care
[2024-11-24 10:21] VITALS: BP 136/64; PULSE 78; RESP 16; TEMP 37.1; O2SAT 99
== END 2024-11-24 10:24 | disposition home or self-care (01) ==
PROVIDERS: Emergency Provider Emergency Medicine; PCP Family Medicine; Visit Provider Emergency Medicine
DX: S09.90XA Unspecified injury of head, initial encounter (principal); Y99.0 Civilian activity done for income or pay; W22.09XA Striking against other stationary object, initial encounter; Y93.89 Activity, other specified; Y92.89 Other specified places as the place of occurrence of the external cause; F17.290 Nicotine dependence, other tobacco product, uncomplicated
CPT/HCPCS: 99282